=== PATIENT | female | born 1940 | race African-American/Black ===

== ENCOUNTER → 2016-05-29 | Outpatient (CLI) | payer BC | LOC: SP 14:11 | PROVIDERS: ATTEND Physician Assistant | DX: M79.662 Pain in left lower leg (principal) | CPT/HCPCS: 93971 ==

== ENCOUNTER → 2018-11-06 | Outpatient (CLI) | payer MEDICARE, BC ==
--- NOTE | 2018-11-06 13:14 | XCELERA REPORT ---
[address] [place] [facility] [place] [address] Lower Extremity Venous Evaluation Procedure: Color flow and duplex imaging of the veins of the left lower extremity as well as the right Common Femoral vein. Right Sided Venous Evaluation The right common femoral vein is fully compressible. Spontaneous and phasic flow is present in the right common femoral vein. Left Sided Venous Evaluation Normal vessel filling wall to wall, compression and augmentation as well as Colour flow down to the infrageniculate veins. Interpretation Summary No duplex evidence of DVT or obstruction in the left lower extremity nor in the right Common Femoral vein. Name: MORGAN ORTEGA Age: 78 yrs Gender: Female : 1940 Patient Status: Outpatient Patient Location: Study Date: 11/06/2018 12:16 PM Reason For Study: LLE PAIN Ordering Physician: DEE DEE HERNDON Performed By: Alberto Stone : DEE DEE HERNDON > [place]
== END ==
LOC: SP 11:29
PROVIDERS: ATTEND Internal Medicine Hematology & Oncology
DX: M79.605 Pain in left leg (principal); M79.89 Other specified soft tissue disorders
CPT/HCPCS: 93971

== ENCOUNTER → 2019-10-26 | Outpatient (CLI) | payer MEDICARE, BC ==
[2019-10-26 14:30] LABS: ABSOLUTE EOSINOPHILS # (AUTO) 0.2 10^3/uL (0.0-0.6); ABSOLUTE LYMPHOCYTES (AUTO) 0.6 10^3/uL (0.5-4.7); ABSOLUTE MONOCYTES (AUTO) 0.4 10^3/uL (0.1-1.4); ABSOLUTE NEUT (AUTO) 2.7 10^3/uL (1.7-8.2); BASOPHILS % (AUTO) 0.5 % (0-2); EOSINOPHILS % (AUTO) 5.1 % (0-6); HEMATOCRIT 25.5 % (36.0-47.0); HEMOGLOBIN 8.6 g/dL (12.0-15.5); MEAN CORPUSCULAR HEMOGLOBIN 30.8 pg (27.0-33.4); MEAN CORPUSCULAR HGB CONC 33.7 g/dL (32.0-36.0); MEAN CORPUSCULAR VOLUME 91 fl (80-97); MONOCYTES % (AUTO) 9.8 % (3-13); PLATELET COUNT 175 10^3/uL (150-450); RED BLOOD COUNT 2.79 10^6/uL (3.72-5.28); RED CELL DISTRIBUTION WIDTH 13.3 % (11.5-14.0); SEGMENTED NEUTROPHILS % (AUTO) 68.6 % (42-78); TOTAL CELLS COUNTED % (AUTO) 100 %
[2019-10-26 14:59] LABS: ALBUMIN 3.7 g/dL (3.5-5.0); ANION GAP 8 (5-19); BLOOD UREA NITROGEN 81 mg/dL (7-20); CALCIUM 9.5 mg/dL (8.4-10.2); CARBON DIOXIDE 22 mmol/L (22-30); CHLORIDE 111 mmol/L (98-107); GLUCOSE 108 mg/dL (75-110); PHOSPHORUS 4.4 mg/dL (2.5-4.5); POTASSIUM 5.7 mmol/L (3.6-5.0)
[2019-10-26 15:07] LABS: APPEARANCE,URINE SLIGHTLY-CLOUDY; BILIRUBIN,URINE NEGATIVE (NEGATIVE); COLOR,URINE YELLOW; GLUCOSE, URINE NEGATIVE (NEGATIVE); KETONES,URINE NEGATIVE (NEGATIVE); LEUKOCYTE ESTERASE,URINE MODERATE (NEGATIVE); NITRITE,URINE NEGATIVE (NEGATIVE); PROTEIN,URINE NEGATIVE (NEGATIVE); URINE SPECIFIC GRAVITY 1.012; UROBILINOGEN,URINE NEGATIVE mg/dL (<2.0)
[2019-10-27 12:37] LABS: CREATININE URINE 131.8 mg/dL (Not Estab.); MICROALBUMIN URINE 9.1 ug/mL (Not Estab.)
[2019-10-28 16:18] LABS: ANION GAP 13 (5-19); BLOOD UREA NITROGEN 80 mg/dL (7-20); CALCIUM 9.6 mg/dL (8.4-10.2); CARBON DIOXIDE 19 mmol/L (22-30); CHLORIDE 109 mmol/L (98-107); GLUCOSE 110 mg/dL (75-110); POTASSIUM 5.6 mmol/L (3.6-5.0)
== END ==
LOC: OD 13:54
PROVIDERS: ATTEND Internal Medicine Nephrology
DX: N18.3 Chronic kidney disease, stage 3 (moderate) (principal); N39.0 Urinary tract infection, site not specified
CPT/HCPCS: 36415; 80048; 80069; 81001; 82043; 82306; 82570; 83970; 85025; 87086

== ENCOUNTER → 2019-11-05 | Outpatient (CLI) | payer MEDICARE, BC | LOC: OD 13:47 | PROVIDERS: ATTEND Internal Medicine Nephrology | DX: E87.5 Hyperkalemia (principal) | CPT/HCPCS: 36415; 84132 ==

== ENCOUNTER 2019-11-25 17:01 | Emergency (ER) | payer MEDICARE, BC ==
--- NOTE | 2019-11-25 17:16 | ER Document Report ---
ED Medical Screen (RME) - General Chief Complaint: Abnormal Lab Results Stated Complaint: ABNORMAL LABS Time Seen by Provider: 11/25/19 17:09 Primary Care Provider: INEZ DRIVER MD [Primary Care Provider] - Follow up as needed Mode of Arrival: Wheelchair Information source: Patient Notes: 79-year-old female sent to the ED for low calcium level. She states she went to the kidney doctor in which was getting ready to leave they called her and told her she needed to come to the emergency room because her calcium was too low. She states she does have some numbness and tingling in the hands and feet. She is being treated for stage III kidney disease. She is alert oriented respirations regular nonlabored speaking in full sentences. I have greeted and performed a rapid initial assessment of this patient. A comprehensive ED assessment and evaluation of the patient, analysis of test results and completion of medical decision making process will be conducted by an additional ED providers. TRAVEL OUTSIDE OF THE [place] IN LAST 30 DAYS: No - Related Data Allergies/Adverse Reactions: levofloxacin [From Levaquin] Allergy (Verified 12/31/16 15:12) Past Medical History - Past Medical History Cardiac Medical History: Reports: Hx Hypertension Denies: Hx Coronary Artery Disease, Hx Heart Attack Pulmonary Medical History: Reports: Hx Asthma, Hx Pneumonia Denies: Hx Bronchitis, Hx COPD Neurological Medical History: Denies: Hx Cerebrovascular Accident, Hx Seizures Endocrine Medical History: Reports: Hx Diabetes Mellitus Type 2 Musculoskeltal Medical History: Reports Hx Arthritis Psychiatric Medical History: Denies: Hx Depression Past Surgical History: Reports: Hx Cholecystectomy - Immunizations Hx Diphtheria, Pertussis, Tetanus Vaccination: Yes Physical Exam - Vital signs Vitals: Temp Pulse Resp BP Pulse Ox 98.6 F 74 18 120/59 L 100 11/25/19 17:12 11/25/19 17:12 11/25/19 17:12 11/25/19 17:12 11/25/19 17:12 Course - Vital Signs Vital signs: Temp Pulse Resp BP Pulse Ox 98.6 F 74 18 120/59 L 100 11/25/19 17:12 11/25/19 17:12 11/25/19 17:12 11/25/19 17:12 11/25/19 17:12 Doctor's Discharge - Discharge Referrals: INEZ DRIVER MD [Primary Care Provider] - Follow up as needed
[2019-11-25 18:06] LABS: APPEARANCE,URINE CLOUDY; BILIRUBIN,URINE NEGATIVE (NEGATIVE); GLUCOSE, URINE NEGATIVE (NEGATIVE); KETONES,URINE NEGATIVE (NEGATIVE); LEUKOCYTE ESTERASE,URINE LARGE (NEGATIVE); NITRITE,URINE NEGATIVE (NEGATIVE); PROTEIN,URINE NEGATIVE (NEGATIVE); URINE SPECIFIC GRAVITY 1.014; UROBILINOGEN,URINE NEGATIVE mg/dL (<2.0)
[2019-11-25 18:07] LABS: COLOR,URINE YELLOW
[2019-11-25 18:11] LABS: ABSOLUTE LYMPHOCYTES (AUTO) 0.3 10^3/uL (0.5-4.7); ABSOLUTE NEUT (AUTO) 1.9 10^3/uL (1.7-8.2); BASOPHILS % (AUTO) 0.1 % (0-2); EOSINOPHILS % (AUTO) 1.4 % (0-6); HEMOGLOBIN 10.7 g/dL (12.0-15.5); LYMPHOCYTES % (AUTO) 11.7 % (13-45); MEAN CORPUSCULAR HEMOGLOBIN 30.6 pg (27.0-33.4); MEAN CORPUSCULAR HGB CONC 34.5 g/dL (32.0-36.0); MEAN CORPUSCULAR VOLUME 89 fl (80-97); MONOCYTES % (AUTO) 1.5 % (3-13); RED BLOOD COUNT 3.49 10^6/uL (3.72-5.28); RED CELL DISTRIBUTION WIDTH 14.3 % (11.5-14.0); SEGMENTED NEUTROPHILS % (AUTO) 85.3 % (42-78); TOTAL CELLS COUNTED % (AUTO) 100 %; WHITE BLOOD COUNT 2.3 10^3/uL (4.0-10.5)
[2019-11-25 18:16] LABS: ALBUMIN 3.2 g/dL (3.5-5.0); ALKALINE PHOSPHATASE 106 U/L (38-126); ANION GAP 11 (5-19); ASPARTATE AMINO TRANSFERASE 27 U/L (14-36); BILIRUBIN,DIRECT 0.5 mg/dL (0.0-0.4); BILIRUBIN,TOTAL 0.9 mg/dL (0.2-1.3); BLOOD UREA NITROGEN 67 mg/dL (7-20); CARBON DIOXIDE 18 mmol/L (22-30); CHLORIDE 110 mmol/L (98-107); GLUCOSE 83 mg/dL (75-110); PHOSPHORUS 2.9 mg/dL (2.5-4.5); POTASSIUM 5.1 mmol/L (3.6-5.0); TOTAL PROTEIN 6.5 g/dL (6.3-8.2)
[2019-11-25 18:43] LABS: PLATELET COUNT 31 10^3/uL (150-450)
[2019-11-25] MEDS ORDERED: CEFTRIAXONE 1 GM/D5W RTU 1 GM/50 ML RTUPB IV ONE (20:46)
--- NOTE | 2019-11-25 20:48 | ER Document Report ---
Entered by BRISEYDA SALCIDO SCRIBE 11/25/192035 Acting as scribe for:CHERELLE NIX DO ED General - General Chief Complaint: Abnormal Lab Results Stated Complaint: ABNORMAL LABS Time Seen by Provider: 11/25/19 17:09 Primary Care Provider: INEZ DRIVER MD [ACTIVE STAFF] - Follow up as needed Mode of Arrival: Wheelchair Information source: Patient Notes: This 79 year old female patient presents to the emergency department today with low calcium levels. Patient states she was visiting her Water Purification Chemist earlier today and was called on her way home to go to the ED because her calcium level was low. Patient states she has recently been fatigued. Patient reports history of uterine cancer and was told cancer cells have returned, now involving her spine and causing back pain. Patient states she was prescribed 5mg oxycodone/acetaminophen which has helped for her pain. Patient reports a blood transfusion a few days ago and her next infusion chemotherapy is tomorrow. TRAVEL OUTSIDE OF THE [place] IN LAST 30 DAYS: No - Related Data Allergies/Adverse Reactions: levofloxacin [From Levaquin] Allergy (Verified 12/31/16 15:12) Past Medical History - General Information source: Patient - Social History Smoking Status: Never Smoker Cigarette use (# per day): No Chew tobacco use (# tins/day): No Frequency of alcohol use: None Drug Abuse: None Family History: Reviewed & Not Pertinent Patient has homicidal ideation: No - Past Medical History Cardiac Medical History: Reports: Hx Hypertension Pulmonary Medical History: Reports: Hx Asthma, Hx Pneumonia Endocrine Medical History: Reports: Hx Diabetes Mellitus Type 2 Renal/ Medical History: Reports: Hx End Stage Renal Disease Malignancy Medical History: Reports: Other - Uterine Cancer Musculoskeletal Medical History: Reports Hx Arthritis Past Surgical History: Reports: Hx Cholecystectomy - Immunizations Hx Diphtheria, Pertussis, Tetanus Vaccination: Yes Review of Systems - Review of Systems Constitutional: See HPI, Other - Fatigue EENT: No symptoms reported Cardiovascular: No symptoms reported Respiratory: No symptoms reported Gastrointestinal: No symptoms reported Genitourinary: No symptoms reported Female Genitourinary: No symptoms reported Musculoskeletal: See HPI, Back pain Skin: No symptoms reported Hematologic/Lymphatic: See HPI Neurological/Psychological: No symptoms reported -: Yes All other systems reviewed and negative Physical Exam - Vital signs Vitals: Temp Pulse Resp BP Pulse Ox 98.6 F 74 18 120/59 L 100 11/25/19 17:12 11/25/19 17:12 11/25/19 17:12 11/25/19 17:12 11/25/19 17:12 - General Notes: Alert. Elderly female who appears frail and older than stated age. - HEENT Head: Normocephalic, Atraumatic Eyes: Normal Pupils: PERRL - Respiratory Respiratory status: No respiratory distress Chest status: Nontender Breath sounds: Normal Chest palpation: Normal Notes: Port present in the right anterior chest. - Cardiovascular Rhythm: Regular Heart sounds: Normal auscultation Murmur: No - Abdominal Inspection: Normal - Soft Distension: No distension Bowel sounds: Normal Tenderness: Nontender - Extremities General upper extremity: Normal inspection. No: Edema Notes: Pitting edema to bilateral lower extremities. - Neurological Neuro grossly intact: Yes Cognition: Normal Orientation: AAOx4 Mariah Coma Scale Eye Opening: Spontaneous Mariah Coma Scale Verbal: Oriented Mariah Coma Scale Motor: Obeys Commands Mariah Coma Scale Total: 15 - Psychological Associated symptoms: Normal affect, Normal mood - Skin Skin Temperature: Warm Skin Moisture: Dry Skin Color: Normal Course - Re-evaluation Re-evalutation: 11/25/19 23:14 MDM Unfortunate 79 year old female arrives with direction given to come here due to low Calcium. 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 She received PRBCs recently and WBC down a bit and a uti are noted. Additionally Chief Payroll Clerk is up just a bit and she was actually at the osd clerk office today. Her pain is controlled. She has received 2 grams of Ca and she has oncology follow up in the morning. 11/25/19 23:22 Discussed follow up and pt feels improved here. Her and understand importance of followup. SBP 130's. HR 80's 100% sat. No evidence of sepsis alt rich it was considered. We discussed the poor renal function and close follow up - first of week is needed. - Vital Signs Vital signs: Temp Pulse Resp BP Pulse Ox 98.6 F 74 15 112/52 L 98 11/25/19 17:12 11/25/19 17:12 11/25/19 19:30 11/25/19 19:30 11/25/19 19:30 - Laboratory Result Diagrams: 11/25/19 17:30 11/25/19 17:30 Laboratory results interpreted by me: 11/25/19 11/25/19 11/25/19 17:30 17:30 17:30 WBC 2.3 L RBC 3.49 L Hgb 10.7 L Hct 31.0 L RDW 14.3 H Plt Count 31 L Lymph % (Auto) 11.7 L Dundy % (Auto) 1.5 L Absolute Lymphs (auto) 0.3 L Absolute Monos (auto) 0.0 L Seg Neutrophils % 85.3 H Potassium 5.1 H Chloride 110 H Carbon Dioxide 18 L BUN 67 H Creatinine 4.18 H Est GFR ( Amer) 12 L Est GFR (MDRD) Non-Af 10 L Calcium 6.0 L* Ionized Calcium Gurinder Magnesium 2.6 H Direct Bilirubin 0.5 H Albumin 3.2 L Urine Blood SMALL H Ur Leukocyte Esterase LARGE H Urine Ascorbic Acid 40 H 11/25/19 19:50 WBC RBC Hgb Hct RDW Plt Count Lymph % (Auto) Dundy % (Auto) Absolute Lymphs (auto) Absolute Monos (auto) Seg Neutrophils % Potassium Chloride Carbon Dioxide BUN Creatinine Est GFR ( Amer) Est GFR (MDRD) Non-Af Calcium Ionized Calcium Gurinder 0.87 L Magnesium Direct Bilirubin Albumin Urine Blood Ur Leukocyte Esterase Urine Ascorbic Acid Discharge - Discharge Clinical Impression: Hypocalcemia Condition: Fair Disposition: HOME, SELF-CARE Instructions: Kidney Failure ([facility]), Urinary Tract Infection ([facility]), Weakness ([facility]) Additional Instructions: Your calcium was too low here and your kidney function is worse. Discuss this with the kidney specialist (osd clerk) next week. Call in the morning for follow up next week. Take the pain medicine as needed for pain. Keep the follow up with the oncologist in the morning. Return here for fever, weakness, vomiting, decreased urine output or other problems or concerns. Your medicine was sent to [facility] on [address]. Prescriptions: Cephalexin Monohydrate [Keflex 500 mg Capsule] 500 mg PO BID 5 Days #20 capsule Cephalexin Monohydrate [Keflex 500 mg Capsule] 250 mg PO BID 5 Days #20 capsule Oxycodone HCl/Acetaminophen [Percocet 5-325 mg Tablet] 1 - 2 tab PO Q4H PRN #15 tablet PRN Reason: Oxycodone HCl/Acetaminophen [Percocet 5-325 mg Tablet] 1 - 2 tab PO ASDIR PRN #15 tablet PRN Reason: Referrals: INEZ DRIVER MD [ACTIVE STAFF] - Follow up as needed I personally performed the services described in the documentation, reviewed and edited the documentation which was dictated to the scribe in my presence, and it accurately records my words and actions.
[2019-11-25] MEDS: CALCIUM GLUC IN NACL, ISO-OSM 1 GM/50 ML RTUPB IV SCH ×2 (21:09→22:44)
[2019-11-26 00:33] VITALS: BP 139/53
== END 2019-11-26 00:33 | disposition home or self-care (01) ==
LOC: ER 17:01
DX: E83.51 Hypocalcemia (principal); N39.0 Urinary tract infection, site not specified; C55 Malignant neoplasm of uterus, part unspecified; C79.51 Secondary malignant neoplasm of bone; M54.9 Dorsalgia, unspecified; R53.83 Other fatigue; R60.0 Localized edema; I10 Essential (primary) hypertension; E11.9 Type 2 diabetes mellitus without complications; J45.909 Unspecified asthma, uncomplicated; Z79.899 Other long term (current) drug therapy; Z88.1 Allergy status to other antibiotic agents
CPT/HCPCS: 36591; 96376; 99284; 96375; 96365; 36415; 87040; 83735; 84100; 85025; 87070; 87077; 81001; 82330; 87150 ×26; J0696; J1642; J0610; 87186

== ENCOUNTER → 2019-11-25 | Outpatient (CLI) | payer MEDICARE, BC ==
[2019-11-25 15:55] LABS: ANION GAP 13 (5-19); BLOOD UREA NITROGEN 71 mg/dL (7-20); CARBON DIOXIDE 15 mmol/L (22-30); CHLORIDE 111 mmol/L (98-107); GLUCOSE 92 mg/dL (75-110); POTASSIUM 5.2 mmol/L (3.6-5.0)
[2019-11-25 16:05] LABS: CALCIUM 6.2 mg/dL (8.4-10.2)
== END ==
LOC: OD 14:54
PROVIDERS: ATTEND Internal Medicine Nephrology
DX: N17.9 Acute kidney failure, unspecified (principal)
CPT/HCPCS: 36415; 80048

== ENCOUNTER 2019-11-26 14:25 | Inpatient (IN) | payer MEDICARE, BC ==
--- NOTE | 2019-11-26 15:14 | ER Document Report ---
ED Medical Screen (RME) - General Chief Complaint: Abnormal Lab Results Stated Complaint: ABNORMAL LABS Time Seen by Provider: 11/26/19 15:05 Primary Care Provider: SHAILESH JOHNSON PA-C [Primary Care Provider] - Follow up as needed Mode of Arrival: Wheelchair Information source: Patient Notes: Patient was sent here from Dr. Turk's office for weakness, fatigue, hypocalc emia, and hypotension. Dr. Hutton felt that patient would likely need admission and IV fluids administration in addition to calcium replacement. Patient was also found to be thrombocytopenic. Patient received 2 units of packed red blood cells 3 days ago. Patient is currently undergoing chemotherapy for endometrial cancer. Patient also has a history of hypertension, diabetes, Crohn's disease and CKD. Patient was evaluated in the ED yesterday and was given IV calcium. I have greeted and performed a rapid initial assessment of this patient. A comprehensive ED assessment and evaluation of the patient, analysis of test results and completion of the medical decision making process will be conducted by additional ED providers. TRAVEL OUTSIDE OF THE [place] IN LAST 30 DAYS: No - Related Data Allergies/Adverse Reactions: levofloxacin [From Levaquin] Allergy (Verified 12/31/16 15:12) Past Medical History - Past Medical History Cardiac Medical History: Reports: Hx Hypertension Denies: Hx Coronary Artery Disease, Hx Heart Attack Pulmonary Medical History: Reports: Hx Asthma, Hx Pneumonia Denies: Hx Bronchitis, Hx COPD Neurological Medical History: Denies: Hx Cerebrovascular Accident, Hx Seizures Endocrine Medical History: Reports: Hx Diabetes Mellitus Type 2 Renal/ Medical History: Reports: Hx End Stage Renal Disease Musculoskeltal Medical History: Reports Hx Arthritis Psychiatric Medical History: Denies: Hx Depression Past Surgical History: Reports: Hx Cholecystectomy - Immunizations Hx Diphtheria, Pertussis, Tetanus Vaccination: Yes Physical Exam - Vital signs Vitals: Temp Pulse Resp BP Pulse Ox 98.1 F 95 16 126/62 H 100 11/26/19 14:33 11/26/19 14:33 11/26/19 14:33 11/26/19 14:33 11/26/19 14:33 - General General appearance: Alert In distress: Mild Notes: Pale, generalized weakness, respirations unlabored Course - Vital Signs Vital signs: Temp Pulse Resp BP Pulse Ox 98.1 F 95 16 126/62 H 100 11/26/19 14:33 11/26/19 14:33 11/26/19 14:33 11/26/19 14:33 11/26/19 14:33 Doctor's Discharge - Discharge Referrals: SHAILESH JOHNSON PA-C [Primary Care Provider] - Follow up as needed
[2019-11-26 17:37] LABS: ABSOLUTE LYMPHOCYTES (AUTO) 0.5 10^3/uL (0.5-4.7); ABSOLUTE MONOCYTES (AUTO) 0.1 10^3/uL (0.1-1.4); ABSOLUTE NEUT (AUTO) 2.2 10^3/uL (1.7-8.2); BASOPHILS % (AUTO) 0.2 % (0-2); EOSINOPHILS % (AUTO) 0.8 % (0-6); HEMATOCRIT 30.6 % (36.0-47.0); HEMOGLOBIN 10.6 g/dL (12.0-15.5); LYMPHOCYTES % (AUTO) 18.3 % (13-45); MEAN CORPUSCULAR HEMOGLOBIN 30.6 pg (27.0-33.4); MEAN CORPUSCULAR HGB CONC 34.4 g/dL (32.0-36.0); MEAN CORPUSCULAR VOLUME 89 fl (80-97); MONOCYTES % (AUTO) 2.6 % (3-13); RED BLOOD COUNT 3.45 10^6/uL (3.72-5.28); RED CELL DISTRIBUTION WIDTH 14.6 % (11.5-14.0); SEGMENTED NEUTROPHILS % (AUTO) 78.1 % (42-78); TOTAL CELLS COUNTED % (AUTO) 100 %; WHITE BLOOD COUNT 2.8 10^3/uL (4.0-10.5)
[2019-11-26 17:45] LABS: APPEARANCE,URINE CLOUDY; BILIRUBIN,URINE NEGATIVE (NEGATIVE); GLUCOSE, URINE NEGATIVE (NEGATIVE); KETONES,URINE TRACE mg/dL (NEGATIVE); LEUKOCYTE ESTERASE,URINE MODERATE (NEGATIVE); NITRITE,URINE NEGATIVE (NEGATIVE); PROTEIN,URINE NEGATIVE (NEGATIVE); URINE SPECIFIC GRAVITY 1.017; UROBILINOGEN,URINE NEGATIVE mg/dL (<2.0)
[2019-11-26 17:46] LABS: COLOR,URINE DARK YELLOW
--- NOTE | 2019-11-26 17:54 | EKG REPORT ---
SEVERITY:- ABNORMAL ECG - ATRIAL FLUTTER, A-RATE 283 LEFT VENTRICULAR HYPERTROPHY : Confirmed by: Lior Davis MD 26-Nov-2019 17:53:09
[2019-11-26 17:59] LABS: PLATELET COUNT 33 10^3/uL (150-450)
[2019-11-26 18:00] LABS: ALBUMIN 3.2 g/dL (3.5-5.0); ALKALINE PHOSPHATASE 103 U/L (38-126); ANION GAP 14 (5-19); ASPARTATE AMINO TRANSFERASE 27 U/L (14-36); BILIRUBIN,DIRECT 0.4 mg/dL (0.0-0.4); BILIRUBIN,TOTAL 0.7 mg/dL (0.2-1.3); BLOOD UREA NITROGEN 69 mg/dL (7-20); CARBON DIOXIDE 15 mmol/L (22-30); CHLORIDE 111 mmol/L (98-107); GLUCOSE 76 mg/dL (75-110); POTASSIUM 5.1 mmol/L (3.6-5.0); TOTAL PROTEIN 6.9 g/dL (6.3-8.2)
[2019-11-26 18:08] LABS: CALCIUM 6.4 mg/dL (8.4-10.2)
[2019-11-26] MEDS ORDERED: NORMAL SALINE 250 ML IV ONE ×2 (18:18→21:11)
[2019-11-26] MEDS ORDERED: MEROPENEM 1 GM VIAL IV ONE (21:05)
[2019-11-26] MEDS ORDERED: CALCIUM GLUCONATE 1000 MG/10 ML INJ IV ONE (21:06)
--- NOTE | 2019-11-26 22:46 | ER Document Report ---
ED General - General Chief Complaint: Abnormal Lab Results Stated Complaint: ABNORMAL LABS Time Seen by Provider: 11/26/19 15:05 Primary Care Provider: SHAILESH JOHNSON PA-C [Primary Care Provider] - Follow up as needed Mode of Arrival: Wheelchair Information source: Patient, Relative Notes: Patient is a 79-year-old female presenting to the emergency department with a c hief complaint of abnormal lab findings. Patient was seen by her provider and was sent into the emergency department for positive blood cultures as well as a continued low calcium. Patient was seen at this facility last evening and was given calcium and started on antibiotic coverage for urinary tract infection however today the patient was called by 1 of her providers and informed that she had gram-negative rods that grew out in a blood culture. At time of presentation patient is alert and oriented in no acute distress complaining of just generalized weakness but no pain no shortness of breath. Patient denies nausea vomiting diarrhea cough or cold symptoms. Patient has been diagnosed w ith uterine cancer with what sounds like mets to the spine. Patient states her last chemo was about a week ago she was told not to take her most recent chemotherapy because of worsening renal function. TRAVEL OUTSIDE OF THE [place] IN LAST 30 DAYS: No - HPI Onset: Last week Onset/Duration: Gradual, Worse Quality of pain: No pain Severity: None Pain Level: Denies Associated symptoms: Weakness Exacerbated by: Denies Relieved by: Denies Similar symptoms previously: Yes Recently seen / treated by doctor: Yes - Related Data Allergies/Adverse Reactions: levofloxacin [From Levaquin] Allergy (Verified 12/31/16 15:12) Past Medical History - General Information source: Patient, Relative, [facility] TO [facility] Records - Social History Smoking Status: Never Smoker Chew tobacco use (# tins/day): No Frequency of alcohol use: None Drug Abuse: None Lives with: Spouse/Significant other Family History: CAD, Malignancy - Brain tumor Patient has suicidal ideation: No Patient has homicidal ideation: No - Past Medical History Cardiac Medical History: Reports: Hx Hypercholesterolemia - Hypercholesterolemia, Hx Hypertension Denies: Hx Atrial Fibrillation, Hx Coronary Artery Disease, Hx DVT, Hx Heart Attack, Hx Pulmonary Embolism Pulmonary Medical History: Reports: Hx Asthma, Hx Pneumonia Denies: Hx Bronchitis, Hx COPD EENT Medical History: Denies: Ears - Hearing aids Neurological Medical History: Denies: Hx Cerebrovascular Accident, Hx Seizures Endocrine Medical History: Reports: Hx Diabetes Mellitus Type 2. Denies: Hx Diabetes Mellitus Type 1, Hx Hyperthyroidism, Hx Hypothyroidism Renal/ Medical History: Reports: Hx End Stage Renal Disease Malignancy Medical History: Reports: Other - Uterine cancer: Endometrial carcinoma GI Medical History: Denies: Hx Cirrhosis, Hx Hepatitis Musculoskeletal Medical History: Reports Hx Arthritis, Denies Hx Gout Skin Medical History: Denies Hx Eczema, Denies Hx Psoriasis Psychiatric Medical History: Denies: Hx Depression Traumatic Medical History: Reports: None Infectious Medical History: Reports: None. Denies: Hx Hepatitis Past Surgical History: Reports: Hx Cholecystectomy, Hx Hysterectomy, Hx Vascular Surgery - Port-A-Cath placement, Other - Colonoscopy - Immunizations Hx Diphtheria, Pertussis, Tetanus Vaccination: Yes Review of Systems - Review of Systems Notes: REVIEW OF SYSTEMS: CONSTITUTIONAL : Per HPI EENT: Denies eye, ear, throat, or mouth pain or symptoms. Denies nasal or sinus congestion. CARDIOVASCULAR: Denies chest pain. RESPIRATORY: Denies cough, cold, or chest congestion. Denies shortness of breath, difficulty breathing, or wheezing. GASTROINTESTINAL: Denies abdominal pain. Denies nausea, vomiting, or diarrhea. Denies constipation. GENITOURINARY: Denies difficulty urinating, painful urination, burning, frequency, or blood in urine. MUSCULOSKELETAL: Denies neck or back pain or joint pain or swelling. SKIN: Denies rash or skin lesions. HEMATOLOGIC : Denies easy bruising or bleeding. NEUROLOGICAL: Denies altered mental status or loss of consciousness. Denies headache. Denies weakness or paralysis or loss of use of either side. Denies problems with gait or speech. Denies sensory or motor loss. PSYCHIATRIC: Denies suicidal or homicidal ideations 10 Systems are negative unless otherwise specified above Physical Exam - Vital signs Vitals: Temp Pulse Resp BP Pulse Ox 98.1 F 95 16 126/62 H 100 11/26/19 14:33 11/26/19 14:33 11/26/19 14:33 11/26/19 14:33 11/26/19 14:33 - Notes Notes: PHYSICAL EXAMINATION: GENERAL: Well-appearing, well-nourished and in no acute distress. HEAD: Atraumatic, normocephalic. EYES: Pupils equal round and reactive to light, extraocular movements intact, sclera anicteric, conjunctiva are normal. ENT: nares patent, oropharynx clear without exudates. Moist mucous membranes. NECK: Normal range of motion, supple without lymphadenopathy, no appreciable JVD LUNGS: Lungs clear to auscultation bilaterally and equal. No wheezes rales or rhonchi. HEART: Irregular tachycardic rate and rhythm without murmurs ABDOMEN: Soft, nontender, normal bowel sounds. No guarding, no rebound. No masses appreciated. EXTREMITIES: Active full range of motion, no pitting or edema. No cyanosis. 2+ pulses x4 NEUROLOGICAL: No focal neurological deficits. Moves all extremities spontaneously and on command. SKIN: Warm, Dry, and intact. Normal turgor, no rashes or lesions noted. Course - Re-evaluation Re-evalutation: 11/26/19 22:49 On presentation to the emergency department EKG chest x-ray and laboratory studies were ordered patient was found to have new onset of atrial flutter initial EKG was obtained at 1637 demonstrating a flutter ventricular rate of 111 bpm there is some borderline LVH this is new compared to prior EKG of December 2016 a repeat EKG was obtained at 1823 hrs. once again showing atrial flutter with a rate of 107 bpm atrial rate of approximately 277. Patient has been hypotensive. Patient furthermore had laboratory studies obtained and evaluated demonstrating a low calcium of 6.4 magnesium of 2.6 white count of 2.8 platelets of 33 BUN of 69 creatinine of 4.27. Patient asked that we contact her main oncology which is in [place] I spoke to the oncologist car salesperson and he feels that the patient can be managed at our facility which is agreeable with the patient and her . Patient was started on antibiotics meropenem given calcium IV and 2 boluses of normal saline 250 cc each. Patient's heart rate has remained in the 90s and low 100s and after fluids and calcium blood pressure currently is 124/91. Patient is never been in acute distress has not had a fever and has had no pain. Patient is consulted to the hospitalist for admission and accepted. - Vital Signs Vital signs: Temp Pulse Resp BP Pulse Ox 98.8 F 95 14 118/44 L 100 11/26/19 22:36 11/26/19 14:33 11/26/19 22:21 11/26/19 22:21 11/26/19 22:21 - Laboratory Result Diagrams: 11/26/19 16:53 11/26/19 16:53 Laboratory results interpreted by me: 11/26/19 11/26/19 11/26/19 16:53 16:53 16:53 WBC 2.8 L RBC 3.45 L Hgb 10.6 L Hct 30.6 L RDW 14.6 H Plt Count 33 L Isabella % (Auto) 2.6 L Seg Neutrophils % 78.1 H Potassium 5.1 H Chloride 111 H Carbon Dioxide 15 L BUN 69 H Creatinine 4.27 H Est GFR ( Amer) 12 L Est GFR (MDRD) Non-Af 10 L Calcium 6.4 L* Ionized Calcium Gurinder Magnesium 2.6 H Albumin 3.2 L Urine Ketones TRACE H Ur Leukocyte Esterase MODERATE H Urine Ascorbic Acid 40 H 11/26/19 18:51 WBC RBC Hgb Hct RDW Plt Count Isabella % (Auto) Seg Neutrophils % Potassium Chloride Carbon Dioxide BUN Creatinine Est GFR ( Amer) Est GFR (MDRD) Non-Af Calcium Ionized Calcium Gurinder 0.90 L Magnesium Albumin Urine Ketones Ur Leukocyte Esterase Urine Ascorbic Acid - Diagnostic Test Radiology reviewed: Pending - EKG Interpretation by Me Rate: Tachycardia Rhythm: A.Flutter When compared to previous EKG there are: Changes noted Critical Care Note - Critical Care Note Total time excluding time spent on procedures (mins): 40 Comments: Please allow 40 minutes of critical care time spent obtaining history from patient or surrogate, discussions with consultants, development of treatment plan with patient or surrogate, evaluation of patient's response to treatment, examination of patient. This also includes ordering and reviewing laboratory, EKG and / or radiologic studies, performing and reassessing treatments and interventions as well as reviewing previous visits and old charts. This is exclusive of separately billable procedures. Discharge - Discharge Clinical Impression: Hypocalcemia, Pancytopenia Atrial flutter Qualifiers: Atrial flutter type: unspecified Qualified Code(s): I48.92 - Unspecified atrial flutter Renal failure Qualifiers: Renal failure chronicity: unspecified chronicity Qualified Code(s): N19 - Unspecified kidney failure Condition: Fair Disposition: ADMITTED INPATIENT Admitting Provider: Tammi (Hospitalist) Unit Admitted: IMCU Referrals: SHAILESH JOHNSON PA-C [Primary Care Provider] - Follow up as needed
--- NOTE | 2019-11-26 22:46 | EKG REPORT ---
SEVERITY:- ABNORMAL ECG - ATRIAL FLUTTER, A-RATE 277 LEFT VENTRICULAR HYPERTROPHY : Confirmed by: Lior Davis MD 26-Nov-2019 22:45:24
[2019-11-26 22:57] LABS: FREE T3 1.96 pg/mL (2.77-5.27)
[2019-11-26] MEDS ORDERED: MELATONIN 5 MG TABLET PO PRN (23:10)
[2019-11-26] MEDS ORDERED: MAGNESIUM HYDROXIDE SUSP 30 ML UDCUP PO PRN (23:10)
[2019-11-26] MEDS ORDERED: GUAIFENESIN SYRP 200 MG/10 ML UDC PO PRN (23:10)
[2019-11-26] MEDS ORDERED: MORPHINE SULFATE 10 MG/ML INJ IV PRN ×4 (23:10→23:18)
[2019-11-26] MEDS ORDERED: DEXTROSE 40% GEL 15 GM TUBE PO PRN ×2 (23:10)
[2019-11-26] MEDS ORDERED: DEXTROSE 50%-WATER 25 GM/50 ML DISP.SYRIN IV PRN ×2 (23:10)
[2019-11-26] MEDS ORDERED: LORAZEPAM INJ 2 MG/1 ML VIAL IV PRN (23:10)
[2019-11-26] MEDS ORDERED: GLUCAGON,HUMAN RECOMB 1 MG INJ IM PRN (23:10)
[2019-11-26] MEDS ORDERED: MAG HYDROX/AL HYDROX/SIMETH SUSP 30 ML UDCUP PO PRN (23:10)
[2019-11-26 23:11] LABS: THYROID STIMULATING HORMONE 2.71 uIU/mL (0.47-4.68)
[2019-11-26] MEDS ORDERED: DIGOXIN INJ 0.5 MG/2 ML AMPULE IV ONE (23:30)
[2019-11-26] MEDS ORDERED: LEVOTHYROXINE SODIUM INJ/PF 0.1 MG SDV IV ONE (23:45)
[2019-11-27 00:25] LABS: CREATINE KINASE MB 1.71 ng/mL (<4.55); TROPONIN I 0.023 ng/mL
[2019-11-27] MEDS ORDERED: LEVOTHYROXINE SODIUM INJ/PF 0.1 MG SDV ONE (01:10)
[2019-11-27] MEDS: PANTOPRAZOLE SODIUM 40 MG TABLET.DR PO SCH (05:29)
[2019-11-27 06:11] LABS: VENOUS BLOOD BASE EXCESS -12.6 mmol/L; VENOUS BLOOD HCO3 14.1 mmol/L (20-32); VENOUS BLOOD PCO2 35.1 mmHg (35-63); VENOUS BLOOD PH 7.22 (7.30-7.42)
[2019-11-27 06:14] LABS: HEMATOCRIT 28.9 % (36.0-47.0); HEMOGLOBIN 9.7 g/dL (12.0-15.5); MEAN CORPUSCULAR HEMOGLOBIN 30.3 pg (27.0-33.4); MEAN CORPUSCULAR HGB CONC 33.6 g/dL (32.0-36.0); MEAN CORPUSCULAR VOLUME 90 fl (80-97); RED BLOOD COUNT 3.21 10^6/uL (3.72-5.28); RED CELL DISTRIBUTION WIDTH 14.8 % (11.5-14.0); WHITE BLOOD COUNT 3.1 10^3/uL (4.0-10.5)
[2019-11-27 06:29] LABS: ANION GAP 13 (5-19); BLOOD UREA NITROGEN 67 mg/dL (7-20); CARBON DIOXIDE 14 mmol/L (22-30); CHLORIDE 114 mmol/L (98-107); CREATINE KINASE 481 U/L (30-135); POTASSIUM 5.2 mmol/L (3.6-5.0)
--- NOTE | 2019-11-27 06:38 | PDOC H&P ---
History of Present Illness Admission Date/PCP: 11/26/2019 21:18 SHAILESH JOHNSON PA-C Patient complains of: Generalized weakness History of Present Illness: MORGAN ORTEGA is a 79 year old female who presents the emergency room from Dr. Hutton's office for evaluation of generalized weakness present for the last week. Patient admits progressively worsening generalized weakness accompanied by fa tigue and associated with hypocalcemia and hypotension noted in Dr. Hutton's office. She was treated as an outpatient with packed red blood cells x2 units earlier this week without substantial improvement. She has been undergoing chemotherapy for endometrial cancer in [facility]. She was seen in the emergency room yesterday and was given IV calcium for hypocalcemia. She was noted to have positive blood cultures from her visit yesterday with gram- negative rods and gram positive cocci (staph species not MSRA). She denies other associated or accompanying signs and symptoms. She has not identified any additional aggravating or ameliorating factors for her weakness. She denies prior similar episodes. In the emergency room she was noted to have new onset atrial flutter, chronic renal failure, mild hyperkalemia, thrombocytopenia, anemia, leukopenia, persistent hypocalcemia, hypermagnesemia and pyuria. Her atrial flutter was well controlled initially but showed signs of increasing in rate and this was associated with a drop in her blood pressure to a systolic of 80. She was treated with an IV fluid bolus and calcium gluconate at my direction. She was started on meropenem 1 g IV in the ER also at my direction. Past Medical History Cardiac Medical History: Reports: Hyperlipidema - Hypercholesterolemia, Hypertension Denies: Atrial Fibrillation, Coronary Artery Disease, DVT, Myocardial Infarction, Pulmonary Embolism Pulmonary Medical History: Reports: Asthma, Pneumonia Denies: Bronchitis, Chronic Obstructive Pulmonary Disease (COPD) EENT Medical History: Denies: Cataracts, Ears - Hearing aids Neurological Medical History: Denies: Hemorrhagic CVA, Ischemic CVA, Seizures Endocrine Medical History: Reports: Diabetes Mellitus Type 2 Denies: Diabetes Mellitus Type 1, Hyperthyroidism, Hypothyroidism Renal/ Medical History: Reports: Chronic Kidney Disease Denies: Nephrolithiasis Malignancy Medical History: Reports: Other - Uterine cancer: Endometrial carcinoma GI Medical History: Denies: Cirrhosis, Hepatitis, Peptic Ulcer Disease Musculoskeltal Medical History: Reports: Arthritis Denies: Gout Skin Medical History: Denies: Eczema, Psoriasis Psychiatric Medical History: Denies: Alcohol Dependency, Depression, Substance Abuse, Tobacco Dependency Traumatic Medical History: Reports: None Hematology: Reports: Anemia Denies: Bleeding Tendencies Infectious Medical History: Reports: None Past Surgical History Past Surgical History: Reports: Cholecystectomy, Hysterectomy, Vascular Surgery - Port-A-Cath placement, Other - Colonoscopy Social History Information Source: Patient Lives with: Spouse/Significant other Smoking Status: Never Smoker Electronic Cigarette use?: No Frequency of Alcohol Use: None Hx Recreational Drug Use: No Drugs: None Hx Prescription Drug Abuse: No - Advance Directive Resuscitation Status: Full Code Surrogate healthcare decision maker:: Sven Ortega Family History Family History: CAD, Malignancy - Brain tumor Parental Family History Reviewed: Yes Children Family History Reviewed: No Sibling(s) Family History Reviewed.: No Medication/Allergy Home Medications: Acetaminophen [Tylenol Extra Strength 500 mg Tablet] 1 cap PO ASDIR PRN 12/31/16 Aspirin [Aspirin 81 mg Chewable Tablet] 81 mg PO DAILY 12/31/16 Atorvastatin Calcium 1 tab PO DAILY 12/31/16 Cetirizine HCl [Zyrtec] 1 tab PO DAILY 12/31/16 Dulaglutide [Trulicity] 1.5 mg INJ ASDIR 12/31/16 Ferrous Sulfate [Iron] 1 tab PO DAILY 12/31/16 Fluticasone Propionate [Flovent Diskus] 1 inh NASL DAILY 12/31/16 Glimepiride 1 mg PO DAILY 12/31/16 Lisinopril 1 tab PO DAILY 12/31/16 Metoprolol Succinate [Toprol Xl] 1 tab PO DAILY 12/31/16 [place]-3 Fatty Acids/Fish Oil [Fish Oil 300 mg Softgel] 1 cap PO DAILY 12/31/16 Ondansetron HCl [Zofran 8 mg Tablet] 1 tab PO DAILY PRN 12/31/16 Oxycodone HCl/Acetaminophen [Percocet 5-325 mg Tablet] 1 tab PO ASDIR PRN #8 tablet 12/31/16 Ranitidine HCl 1 tab PO DAILY 12/31/16 Sulfadiazine 1 tab PO TID 12/31/16 Triamterene/Hydrochlorothiazid [Triamterene-Hctz 37.5-25 mg Cp] 1 tab PO DAILY 12/31/16 Cephalexin Monohydrate [Keflex 500 mg Capsule] 250 mg PO BID 5 Days #20 capsule 11/25/19 Cephalexin Monohydrate [Keflex 500 mg Capsule] 500 mg PO BID 5 Days #20 capsule 11/25/19 Oxycodone HCl/Acetaminophen [Percocet 5-325 mg Tablet] 1 - 2 tab PO ASDIR PRN #15 tablet 11/25/19 Oxycodone HCl/Acetaminophen [Percocet 5-325 mg Tablet] 1 - 2 tab PO Q4H PRN #15 tablet 11/25/19 Allergies/Adverse Reactions: levofloxacin [From Levaquin] Allergy (Verified 12/31/16 15:12) Review of Systems Constitutional: PRESENT: as per HPI, fatigue, weakness. ABSENT: chills, fever(s) Eyes: ABSENT: visual disturbances, other - Eye pain Ears: ABSENT: hearing changes, other - Ear pain Nose, Mouth, and Throat: ABSENT: headache(s), sore throat Cardiovascular: PRESENT: as per HPI, other - Hypotension. ABSENT: chest pain, palpitations Respiratory: ABSENT: cough, dyspnea Gastrointestinal: ABSENT: abdominal pain, constipation, diarrhea, nausea, vomiting Genitourinary: ABSENT: dysuria, hematuria Musculoskeletal: PRESENT: as per HPI, muscle weakness - Generalized. ABSENT: joint swelling Integumentary: ABSENT: pruritus, rash Neurological: ABSENT: confusion, convulsions, focal weakness, memory loss, syncope Psychiatric: ABSENT: anxiety, depression Endocrine: ABSENT: cold intolerance, heat intolerance Hematologic/Lymphatic: PRESENT: easy bruising - Since chemotherapy. ABSENT: easy bleeding Allergic/Immunologic: ABSENT: seasonal rhinorrhea Physical Exam Vital Signs: Temp Pulse Resp BP Pulse Ox 98.1 F 95 23 H 109/71 100 11/26/19 17:55 11/26/19 14:33 11/26/19 17:01 11/26/19 17:00 11/26/19 17:01 Intake & Output 11/24/19 11/25/19 11/26/19 23:59 23:59 23:59 Intake Total 250 Balance 250 Weight 73.482 kg General appearance: PRESENT: no acute distress, cooperative, other - Appears chronically ill Head exam: PRESENT: atraumatic, normocephalic Eye exam: PRESENT: conjunctiva pink. ABSENT: conjunctival injection, scleral icterus Ear exam: PRESENT: normal external ear exam. ABSENT: bleeding, drainage Mouth exam: PRESENT: dry mucosa, neck supple Neck exam: ABSENT: thyromegaly, tracheal deviation Respiratory exam: PRESENT: clear to auscultation paloma, symmetrical, unlabored Cardiovascular exam: PRESENT: irregular rhythm - Irregularly irregular rate and rhythm, tachycardia. ABSENT: clicks, gallop, rubs Pulses: PRESENT: normal radial pulses, +1 pedal pulses bilateral Vascular exam: PRESENT: normal capillary refill. ABSENT: pallor GI/Abdominal exam: PRESENT: normal bowel sounds, soft. ABSENT: tenderness Rectal exam: PRESENT: deferred Extremities exam: ABSENT: joint swelling, pedal edema Musculoskeletal exam: ABSENT: deformity, dislocation Neurological exam: PRESENT: alert, oriented to person, oriented to place, oriented to time, oriented to situation, CN II-XII grossly intact. ABSENT: motor sensory deficit Psychiatric exam: PRESENT: appropriate affect, normal mood Skin exam: PRESENT: dry, intact, warm. ABSENT: jaundice, rash, urticaria Results Laboratory Results: 11/26/19 16:53 11/26/19 11/26/19 11/26/19 16:53 16:53 16:53 WBC 2.8 L RBC 3.45 L Hgb 10.6 L Hct 30.6 L MCV 89 MCH 30.6 MCHC 34.4 RDW 14.6 H Plt Count 33 L Seg Neutrophils % 78.1 H Sodium 139.9 Potassium 5.1 H Chloride 111 H Carbon Dioxide 15 L Anion Gap 14 BUN 69 H Creatinine 4.27 H Est GFR ( Amer) 12 L Glucose 76 Calcium 6.4 L* Ionized Calcium Gurinder Magnesium 2.6 H Total Bilirubin 0.7 AST 27 Alkaline Phosphatase 103 Total Protein 6.9 Albumin 3.2 L Urine Color DARK YELLOW Urine Appearance CLOUDY Urine pH 5.0 Ur Specific [place] 1.017 Urine Protein NEGATIVE Urine Glucose (UA) NEGATIVE Urine Ketones TRACE H Urine Blood NEGATIVE Urine Nitrite NEGATIVE Ur Leukocyte Esterase MODERATE H Urine WBC (Auto) 30 Urine RBC (Auto) 6 11/26/19 18:51 WBC RBC Hgb Hct MCV MCH MCHC RDW Plt Count Seg Neutrophils % Sodium Potassium Chloride Carbon Dioxide Anion Gap BUN Creatinine Est GFR ( Amer) Glucose Calcium Ionized Calcium Gurinder 0.90 L Magnesium Total Bilirubin AST Alkaline Phosphatase Total Protein Albumin Urine Color Urine Appearance Urine pH Ur Specific [place] Urine Protein Urine Glucose (UA) Urine Ketones Urine Blood Urine Nitrite Ur Leukocyte Esterase Urine WBC (Auto) Urine RBC (Auto) Assessment and Plan - Diagnosis (1) Severe sepsis with septic shock Is this a current diagnosis for this admission?: Yes (2) Pyuria Is this a current diagnosis for this admission?: Yes (3) Positive blood cultures Is this a current diagnosis for this admission?: Yes (4) Atrial flutter Qualifiers: Atrial flutter type: unspecified Qualified Code(s): I48.92 - Unspecified atrial flutter Is this a current diagnosis for this admission?: Yes (5) Renal failure Qualifiers: Renal failure chronicity: unspecified chronicity Qualified Code(s): N19 - Unspecified kidney failure Is this a current diagnosis for this admission?: Yes (6) Hypocalcemia Is this a current diagnosis for this admission?: Yes (7) Hyperkalemia Is this a current diagnosis for this admission?: Yes (8) Hypermagnesemia Is this a current diagnosis for this admission?: Yes (9) Leukopenia Qualifiers: Leukopenia type: unspecified Qualified Code(s): D72.819 - Decreased white blood cell count, unspecified Is this a current diagnosis for this admission?: Yes (10) Normochromic normocytic anemia Is this a current diagnosis for this admission?: Yes (11) Thrombocytopenia Is this a current diagnosis for this admission?: Yes - Plan Summary Summary: Patient will be admitted to [facility] where she will receive routine supportive and symptomatic cares. Patient will be treated with IV fluids utilizing lactated Ringer solution at 167 mL/h initially. She will receive meropenem 1 g initially followed by 500 mg IV every 12 hours (renally adjusted dose). Due to her thrombocytopenia no anticoagulation will be employed at this time. She will receive digoxin 0.25 mg IV x1 dose in the emergency room with further dosing based on her response and serial digoxin levels. A cardiology consultation with Dr. Salazar will be obtained. A nephrology consultation will be obtained with nephrology services are once again available. An oncology consultation will be obtained with Dr. Del Cid. She will receive a cardiac and diabetic re stricted diet. Before meals and at bedtime Accu-Cheks will be obtained with sliding scale insulin for hyperglycemia and a hypoglycemic protocol in place. CBCs, metabolic profiles and additional laboratory and/or radiographic evaluations will be obtained as appropriate. She will receive Ativan 1 mg IV every 4 hours as needed for anxiety or restlessness. She will receive morphine sulfate 2 to 4 mg IV every 2 hours as needed for pain. - Time Time Spent with patient: Less than 15 minutes Medications reviewed and adjusted accordingly: Yes Anticipated Discharge Disposition: Home with Home Health Anticipated Discharge Timeframe: Undetermined - Inpatient Certification Based on my medical assessment, after consideration of the patient's comorbidities, presenting symptoms, or acuity I expect that the services needed warrant INPATIENT care.: Yes I certify that my determination is in accordance with my understanding of Medicare's requirements for reasonable and necessary INPATIENT services [42 CFR 412.3e].: Yes Medical Necessity: Significant Comorbidiites Make Outpatient Treatment Too [place], Need Close Monitoring Due to Risk of Patient Decompensation, Need For IV Fluids, Need For Continuous Telemetry Monitoring, Need for IV Antibiotics, Risk of Complication if Not Cared For in Hospital
--- NOTE | 2019-11-27 06:40 | RADIOLOGY REPORT (SQ) ---
AP Portable chest: 11/27/2019 5:38 AM CDT History: 79-year old patient with dyspnea. Comparison: None available Findings: The cardiomediastinal silhouette is normal in size. No pneumothorax is seen. No acute airspace opacities are seen. No discrete pleural effusion is apparent. A right subclavian [id number] catheter tip projects near the mid SVC. There is elevation of the right hemidiaphragm. There are surgical clips over the right upper abdomen. Impression: No acute airspace opacities are seen.
[2019-11-27 06:41] LABS: CREATINE KINASE MB 4.04 ng/mL (<4.55); TROPONIN I 0.029 ng/mL
[2019-11-27 06:42] LABS: CALCIUM 5.9 mg/dL (8.4-10.2)
[2019-11-27 06:43] LABS: GLUCOSE 43 mg/dL (75-110)
[2019-11-27 06:46] LABS: PLATELET COUNT 31 10^3/uL (150-450)
[2019-11-27] MEDS ORDERED: CALCIUM GLUCONATE 6,666 MG in DEXTROSE 5%-WATER 500 ML IV ONE ×2 (08:00→10:00)
[2019-11-27] MEDS: INSULIN REG, HUMAN 100 UNIT/ML 3 ML VIAL (PYX) SUBCUT SCH ×4 (08:37→22:05)
[2019-11-27] MEDS: MEROPENEM 500 MG in NORMAL SALINE 50 ML IV SCH ×2 (09:58→21:17)
[2019-11-27] MEDS: DOCUSATE SODIUM 100 MG CAPSULE PO SCH ×2 (09:58→17:43)
[2019-11-27] MEDS ORDERED: MEROPENEM 500 MG VIAL IV SCH (10:00)
--- NOTE | 2019-11-27 11:22 | PDOC CONSULTATION ---
Consultation Consult Date: 11/27/19 Attending physician:: PRABHA SNYDER Provider Consulted: HUMAIRA DAN Consult reason:: Patient well-known to oncology clinic with endometrial cancer here with cytopenias, weakness History of Present Illness Admission Date/PCP: 11/26/19 23:22 SHAILESH JOHNSON PA-C Patient complains of: Weakness History of Present Illness: MORGAN ORTEGA is a 79 year old female with endometrial cancer, receiving chemotherapy and [place] through Dr. Reaves, last chemo was 1 week ago. Did not receive chemo this week through their office because of cytopenias. Came to our office with hemoglobin in the 8 range and we transfused her, came back to our office and still was very weak, dehydrated, was admitted, found to be hyp otensive and tachycardic, counts were low, but hemoglobin was better at the 10 range. Platelet count has been low at 30. Creatinine is increased. Past Medical History Cardiac Medical History: Reports: Hyperlipidema - Hypercholesterolemia, Hypertension Denies: Atrial Fibrillation, Coronary Artery Disease, DVT, Myocardial Infarction, Pulmonary Embolism Pulmonary Medical History: Reports: Asthma, Pneumonia Denies: Bronchitis, Chronic Obstructive Pulmonary Disease (COPD) EENT Medical History: Denies: Cataracts, Ears - Hearing aids Neurological Medical History: Denies: Hemorrhagic CVA, Ischemic CVA, Seizures Endocrine Medical History: Reports: Diabetes Mellitus Type 2 Denies: Diabetes Mellitus Type 1, Hyperthyroidism, Hypothyroidism Renal/ Medical History: Reports: Chronic Kidney Disease, End Stage Renal Disease Denies: Nephrolithiasis Malignancy Medical History: Reports: Other - Uterine cancer: Endometrial carcinoma GI Medical History: Denies: Cirrhosis, Hepatitis, Peptic Ulcer Disease Musculoskeltal Medical History: Reports: Arthritis Denies: Gout Skin Medical History: Denies: Eczema, Psoriasis Psychiatric Medical History: Denies: Alcohol Dependency, Depression, Substance Abuse, Tobacco Dependency Traumatic Medical History: Reports: None Hematology: Reports: Anemia Denies: Bleeding Tendencies Infectious Medical History: Reports: None Past Surgical History Past Surgical History: Reports: Cholecystectomy, Hysterectomy, Vascular Surgery - Port-A-Cath placement, Other - Colonoscopy Social History Information Source: Patient Lives with: Spouse/Significant other Smoking Status: Never Smoker Electronic Cigarette use?: No Frequency of Alcohol Use: None Hx Recreational Drug Use: No Drugs: None Hx Prescription Drug Abuse: No - Advance Directive Resuscitation Status: Full Code Family History Family History: CAD, Malignancy - Brain tumor Parental Family History Reviewed: Yes Children Family History Reviewed: Yes Sibling(s) Family History Reviewed.: Yes Medication/Allergy Home Medications: Aspirin [Aspirin 81 mg Chewable Tablet] 81 mg PO DAILY 12/31/16 Atorvastatin Calcium 20 mg PO DAILY 12/31/16 Cetirizine HCl [Zyrtec] 10 mg PO DAILY 12/31/16 Metoprolol Succinate [Toprol Xl] 50 mg PO DAILY 12/31/16 Ondansetron HCl [Zofran 8 mg Tablet] 8 mg PO Q8HP PRN 12/31/16 B-Complex with Vitamin C [Super B Complex-Vitamin C] 1 tab PO DAILY 11/27/19 Calcium Carbonate [Calcium] 600 mg PO BID 11/27/19 Cholecalciferol (Vitamin D3) [Vitamin D3 1000 Unit Tablet] 2,000 unit PO DAILY 11/27/19 Doxazosin Mesylate [Cardura 2 mg Tablet] 2 mg PO QHS 11/27/19 Dulaglutide [Trulicity] 0.75 mg SQ FR@1000 11/27/19 Fluticasone Propionate [Flonase Nasal [place] 50 Mcg/[place] 16 gm] 1 spray NASL DAILY 11/27/19 Furosemide [Lasix 20 mg Tablet] 20 mg PO MOWEFR@1000 11/27/19 Krill/Om-3/Dha/Epa/Phospho/Ast [Maximum Red Krill [place]-3 Sfgl] 1 cap PO DAILY 1 Omeprazole 40 mg PO Q6AM 11/27/19 Oxycodone HCl/Acetaminophen [Percocet 5-325 mg Tablet] 1 tab PO Q4HP PRN 11/27/19 Prochlorperazine Maleate [Compazine 5 mg Tablet] 5 mg PO Q6HP PRN 11/27/19 Allergies/Adverse Reactions: levofloxacin [From Levaquin] Allergy (Verified 12/31/16 15:12) Review of Systems Constitutional: ABSENT: chills, fever(s), headache(s), weight gain, weight loss Eyes: ABSENT: visual disturbances Ears: ABSENT: hearing changes Cardiovascular: ABSENT: chest pain, dyspnea on exertion, edema, orthropnea, palpitations Respiratory: ABSENT: cough, hemoptysis Gastrointestinal: ABSENT: abdominal pain, constipation, diarrhea, hematemesis, hematochezia, nausea, vomiting Genitourinary: ABSENT: dysuria, hematuria Musculoskeletal: ABSENT: joint swelling Integumentary: ABSENT: rash, wounds Neurological: ABSENT: abnormal gait, abnormal speech, confusion, dizziness, focal weakness, syncope Psychiatric: ABSENT: anxiety, depression, homidical ideation, suicidal ideation Endocrine: ABSENT: cold intolerance, heat intolerance, polydipsia, polyuria Hematologic/Lymphatic: ABSENT: easy bleeding, easy bruising Physical Exam Vital Signs: Temp Pulse Resp BP Pulse Ox 98.3 F 89 18 107/89 H 98 11/27/19 07:39 11/27/19 07:39 11/27/19 07:39 11/27/19 07:39 11/27/19 07:39 Intake & Output 11/26/19 11/27/19 11/28/19 06:59 06:59 06:59 Intake Total 500 50 Balance 500 50 Weight 94.8 kg General appearance: PRESENT: no acute distress, well-developed, well-nourished Head exam: PRESENT: atraumatic, normocephalic Eye exam: PRESENT: conjunctiva pink, EOMI, PERRLA. ABSENT: scleral icterus Ear exam: PRESENT: normal external ear exam Mouth exam: PRESENT: moist, tongue midline Neck exam: ABSENT: carotid bruit, JVD, lymphadenopathy, thyromegaly Respiratory exam: PRESENT: clear to auscultation paloma. ABSENT: rales, rhonchi, wheezes Cardiovascular exam: PRESENT: RRR. ABSENT: diastolic murmur, rubs, systolic murmur Pulses: PRESENT: normal dorsalis pedis pul Vascular exam: PRESENT: normal capillary refill GI/Abdominal exam: PRESENT: normal bowel sounds, soft. ABSENT: distended, guarding, mass, organolmegaly, rebound, tenderness Rectal exam: PRESENT: deferred Extremities exam: PRESENT: full ROM. ABSENT: calf tenderness, clubbing, pedal edema Neurological exam: PRESENT: alert, awake, oriented to person, oriented to place, oriented to time, oriented to situation, CN II-XII grossly intact. ABSENT: motor sensory deficit Psychiatric exam: PRESENT: appropriate affect, normal mood. ABSENT: homicidal ideation, suicidal ideation Skin exam: PRESENT: dry, intact, warm. ABSENT: cyanosis, rash Results Laboratory Results: 11/27/19 05:30 11/27/19 05:30 11/26/19 11/26/19 11/26/19 16:53 16:53 16:53 WBC 2.8 L RBC 3.45 L Hgb 10.6 L Hct 30.6 L MCV 89 MCH 30.6 MCHC 34.4 RDW 14.6 H Plt Count 33 L Seg Neutrophils % 78.1 H VBG pH VBG pCO2 VBG HCO3 VBG Base Excess Sodium 139.9 Potassium 5.1 H Chloride 111 H Carbon Dioxide 15 L Anion Gap 14 BUN 69 H Creatinine 4.27 H Est GFR ( Amer) 12 L Glucose 76 Lactic Acid Calcium 6.4 L* Ionized Calcium Gurinder Magnesium 2.6 H Total Bilirubin 0.7 AST 27 Alkaline Phosphatase 103 Total Protein 6.9 Albumin 3.2 L TSH Free T3 pg/mL Urine Color DARK YELLOW Urine Appearance CLOUDY Urine pH 5.0 Ur Specific [place] 1.017 Urine Protein NEGATIVE Urine Glucose (UA) NEGATIVE Urine Ketones TRACE H Urine Blood NEGATIVE Urine Nitrite NEGATIVE Ur Leukocyte Esterase MODERATE H Urine WBC (Auto) 30 Urine RBC (Auto) 6 11/26/19 11/26/19 11/26/19 16:53 18:51 22:55 WBC RBC Hgb Hct MCV MCH MCHC RDW Plt Count Seg Neutrophils % VBG pH VBG pCO2 VBG HCO3 VBG Base Excess Sodium Potassium Chloride Carbon Dioxide Anion Gap BUN Creatinine Est GFR ( Amer) Glucose Lactic Acid < 0.5 L Calcium Ionized Calcium Gurinder 0.90 L Magnesium Total Bilirubin AST Alkaline Phosphatase Total Protein Albumin TSH 2.71 Free T3 pg/mL 1.96 L Urine Color Urine Appearance Urine pH Ur Specific [place] Urine Protein Urine Glucose (UA) Urine Ketones Urine Blood Urine Nitrite Ur Leukocyte Esterase Urine WBC (Auto) Urine RBC (Auto) 11/27/19 11/27/19 11/27/19 03:20 05:30 05:30 WBC 3.1 L RBC 3.21 L Hgb 9.7 L Hct 28.9 L MCV 90 MCH 30.3 MCHC 33.6 RDW 14.8 H Plt Count 31 L Seg Neutrophils % VBG pH VBG pCO2 VBG HCO3 VBG Base Excess Sodium 140.8 Potassium 5.2 H Chloride 114 H Carbon Dioxide 14 L Anion Gap 13 BUN 67 H Creatinine 3.65 H Est GFR ( Amer) 15 L Glucose 43 L Lactic Acid < 0.5 L Calcium 5.9 L* Ionized Calcium Gurinder Magnesium 2.6 H Total Bilirubin AST Alkaline Phosphatase Total Protein Albumin TSH Free T3 pg/mL Urine Color Urine Appearance Urine pH Ur Specific [place] Urine Protein Urine Glucose (UA) Urine Ketones Urine Blood Urine Nitrite Ur Leukocyte Esterase Urine WBC (Auto) Urine RBC (Auto) 11/27/19 05:30 WBC RBC Hgb Hct MCV MCH MCHC RDW Plt Count Seg Neutrophils % VBG pH 7.22 L VBG pCO2 35.1 VBG HCO3 14.1 L VBG Base Excess -12.6 Sodium Potassium Chloride Carbon Dioxide Anion Gap BUN Creatinine Est GFR ( Amer) Glucose Lactic Acid Calcium Ionized Calcium Gurinder Magnesium Total Bilirubin AST Alkaline Phosphatase Total Protein Albumin TSH Free T3 pg/mL Urine Color Urine Appearance Urine pH Ur Specific [place] Urine Protein Urine Glucose (UA) Urine Ketones Urine Blood Urine Nitrite Ur Leukocyte Esterase Urine WBC (Auto) Urine RBC (Auto) 11/26/19 11/26/19 11/27/19 23:48 23:48 05:30 Creatine Kinase 216 H 481 H CK-MB (CK-2) 1.71 Troponin I 0.023 11/27/19 05:30 Creatine Kinase CK-MB (CK-2) 4.04 Troponin I 0.029 Assessment & Plan - Diagnosis (1) Pancytopenia Is this a current diagnosis for this admission?: Yes Plan: Hemoglobin slightly lower at 9.7, platelets stable at 30. Will remain low for some time. Transfuse hemoglobin if he gets under 8, platelets if it gets under 10. Will follow. (2) Endometrial cancer Is this a current diagnosis for this admission?: Yes Plan: Receiving chemotherapy through [place]. We will probably have to hold chemo for 2 weeks at least to let count recovery. - Time Time Spent: Greater than 70 Minutes - Inpatient Certification Based on my medical assessment, after consideration of the patient's comorbidities, presenting symptoms, or acuity I expect that the services needed warrant INPATIENT care.: Yes I certify that my determination is in accordance with my understanding of Medicare's requirements for reasonable and necessary INPATIENT services [42 CFR 412.3e].: Yes Medical Necessity: Risk of Complication if Not Cared For in Hospital
[2019-11-27 13:38] LABS: CREATINE KINASE MB 5.43 ng/mL (<4.55); TROPONIN I 0.024 ng/mL
[2019-11-27] MEDS ORDERED: METOPROLOL TARTRATE 50 MG TABLET PO ONE (17:30)
[2019-11-27] MEDS ORDERED: PROCHLORPERAZINE MALEATE 5 MG TABLET PO PRN (18:25)
[2019-11-27] MEDS ORDERED: ONDANSETRON HCL 8 MG TABLET PO PRN (18:25)
[2019-11-27] MEDS ORDERED: OXYCODONE-ACETAMINOPHEN 5-325 MG TABLET PO PRN (18:25)
--- NOTE | 2019-11-27 18:35 | PDOC PROGRESS REPORT ---
Subjective Progress Note for:: 11/27/19 Subjective:: She reports feeling well. She denies any chest pain or abdominal pain Reason For Visit: SEVERE SEPSIS WITH SEPTIC SHOCK,RENAL FAILURE, Physical Exam Vital Signs: Temp Pulse Resp BP Pulse Ox 97.9 F 84 18 123/52 L 94 11/27/19 15:28 11/27/19 15:28 11/27/19 15:28 11/27/19 15:28 11/27/19 15:28 Intake & Output 11/26/19 11/27/19 11/28/19 06:59 06:59 06:59 Intake Total 500 986.66 Balance 500 986.66 Weight 94.8 kg General appearance: PRESENT: no acute distress, well-developed, well-nourished Head exam: PRESENT: atraumatic, normocephalic Eye exam: PRESENT: conjunctiva pink, EOMI, PERRLA. ABSENT: scleral icterus Ear exam: PRESENT: normal external ear exam Mouth exam: PRESENT: moist, tongue midline Neck exam: ABSENT: carotid bruit, JVD, lymphadenopathy, thyromegaly Respiratory exam: PRESENT: clear to auscultation paloma. ABSENT: rales, rhonchi, wheezes Cardiovascular exam: PRESENT: irregular rhythm, +S1, +S2. ABSENT: diastolic murmur, rubs, systolic murmur GI/Abdominal exam: PRESENT: normal bowel sounds, soft. ABSENT: distended, guarding, mass, organolmegaly, rebound, tenderness Rectal exam: PRESENT: deferred Extremities exam: PRESENT: full ROM. ABSENT: calf tenderness, clubbing, pedal edema Neurological exam: PRESENT: alert, awake, oriented to person, oriented to place, oriented to time, oriented to situation, CN II-XII grossly intact. ABSENT: motor sensory deficit Psychiatric exam: PRESENT: appropriate affect, normal mood. ABSENT: homicidal ideation, suicidal ideation Skin exam: PRESENT: dry, intact, warm. ABSENT: cyanosis, rash Results Laboratory Results: 11/27/19 05:30 11/27/19 05:30 11/26/19 11/26/19 11/26/19 16:53 18:51 22:55 WBC RBC Hgb Hct MCV MCH MCHC RDW Plt Count VBG pH VBG pCO2 VBG HCO3 VBG Base Excess Sodium Potassium Chloride Carbon Dioxide Anion Gap BUN Creatinine Est GFR ( Amer) Glucose Lactic Acid < 0.5 L Calcium Ionized Calcium Gurinder 0.90 L Magnesium TSH 2.71 Free T3 pg/mL 1.96 L 11/27/19 11/27/19 11/27/19 03:20 05:30 05:30 WBC 3.1 L RBC 3.21 L Hgb 9.7 L Hct 28.9 L MCV 90 MCH 30.3 MCHC 33.6 RDW 14.8 H Plt Count 31 L VBG pH VBG pCO2 VBG HCO3 VBG Base Excess Sodium 140.8 Potassium 5.2 H Chloride 114 H Carbon Dioxide 14 L Anion Gap 13 BUN 67 H Creatinine 3.65 H Est GFR ( Amer) 15 L Glucose 43 L Lactic Acid < 0.5 L Calcium 5.9 L* Ionized Calcium Gurinder Magnesium 2.6 H TSH Free T3 pg/mL 11/27/19 11/27/19 05:30 12:45 WBC RBC Hgb Hct MCV MCH MCHC RDW Plt Count VBG pH 7.22 L VBG pCO2 35.1 VBG HCO3 14.1 L VBG Base Excess -12.6 Sodium Potassium Chloride Carbon Dioxide Anion Gap BUN Creatinine Est GFR ( Amer) Glucose Lactic Acid 0.7 Calcium Ionized Calcium Gurinder Magnesium TSH Free T3 pg/mL 11/26/19 11/26/19 11/27/19 23:48 23:48 05:30 Creatine Kinase 216 H 481 H CK-MB (CK-2) 1.71 Troponin I 0.023 11/27/19 11/27/19 11/27/19 05:30 12:45 12:45 Creatine Kinase 802 H CK-MB (CK-2) 4.04 5.43 H Troponin I 0.029 0.024 Assessment and Plan - Diagnosis (1) CKD (chronic kidney disease) stage 4, GFR 15-29 ml/min Is this a current diagnosis for this admission?: Yes (2) Atrial flutter Qualifiers: Atrial flutter type: unspecified Qualified Code(s): I48.92 - Unspecified atrial flutter Is this a current diagnosis for this admission?: Yes (3) Endometrial cancer Is this a current diagnosis for this admission?: Yes (4) Hyperkalemia Is this a current diagnosis for this admission?: Yes (5) Leukopenia Qualifiers: Leukopenia type: unspecified Qualified Code(s): D72.819 - Decreased white blood cell count, unspecified Is this a current diagnosis for this admission?: Yes (6) Pancytopenia Is this a current diagnosis for this admission?: Yes - Plan Summary Summary: She has a history of endometrial cancer currently on chemotherapy with the last chemo 1 week ago she is still thrombocytopenic with a platelet count of 31,000 she has been seen by oncology and recommendations noted Her kidney function is improved currently on 3.65 which is right around where he was in October 2019 3.57 - Time Time Spent with patient: 25-34 minutes Anticipated Discharge Disposition: Home, Self Care Anticipated Discharge Timeframe: within 48 hours
[2019-11-27] MEDS ORDERED: CALCIUM CARBONATE 600 MG TABLET PO ONE ×2 (19:00→21:30)
[2019-11-27] MEDS: ATORVASTATIN CALCIUM 20 MG TABLET PO SCH (21:17)
--- NOTE | 2019-11-27 23:06 | PDOC CONSULTATION ---
Consultation-Blank Consultation: CARDIOLOGY CONSULTATION by Dr. Deandra Salazar on 11/27/2019. Patient seen at 11 AM. 60 minutes spent with patient more than 50% time spent in direct patient care. REASON FOR CONSULTATION: AF patient with new onset atrial flutter. CONSULT REQUESTING PHYSICIAN: Dr. Harden [facility] [place] [facility]. HISTORY OF PRESENT ILLNESS: Patient is a 79-year-old Afro-Romanian female with a history of uterine cancer who had last week chemotherapy in [facility], history of chronic kidney disease stage III, was seen in Dr. Turk's office and found to have hypocalcemia and hypotension. She was sent to the emergency room for further management and the patient had a blood culture which was positive for St aphylococcus coccus aureus species which is not methicillin-resistant. She was also found to be in atrial flutter. The patient's denies any symptoms of palpitations or awareness of irregular beating of the heart. She denies any knowledge of prior history of cardiac arrhythmia. She denies any chest pain or discomfort or coronary artery disease. There is no history of congestive heart failure. She was seen on 11/25/2019 in the emergency room, and although no twelve-lead EKG was done the EKG strip shows sinus rhythm. Hence patient since 11/24/2021 11/26/2019 has developed atrial flutter. Her EKG in 2017 showed sinus rhythm with left axis deviation and left ventricular hypertrophy. She denies any fever chills or rigors. Although no history of CVA she states many years ago she had a minor TIA attack. Past Medical History Cardiac Medical History: Reports: Hyperlipidema - Hypercholesterolemia, Hypertension Denies: Atrial Fibrillation, Coronary Artery Disease, DVT, Myocardial Infarction, Pulmonary Embolism Pulmonary Medical History: Reports: Asthma, Pneumonia Denies: Bronchitis, Chronic Obstructive Pulmonary Disease (COPD) EENT Medical History: Denies: Cataracts, Ears - Hearing aids Neurological Medical History: Denies: Hemorrhagic CVA, Ischemic CVA, Seizures Endocrine Medical History: Reports: Diabetes Mellitus Type 2 Denies: Diabetes Mellitus Type 1, Hyperthyroidism, Hypothyroidism Renal/ Medical History: Reports: Chronic Kidney Disease Denies: Nephrolithiasis Malignancy Medical History: Reports: Other - Uterine cancer: Endometrial carcinoma GI Medical History: Denies: Cirrhosis, Hepatitis, Peptic Ulcer Disease Musculoskeltal Medical History: Reports: Arthritis Denies: Gout Skin Medical History: Denies: Eczema, Psoriasis Psychiatric Medical History: Denies: Alcohol Dependency, Depression, Substance Abuse, Tobacco Dependency Traumatic Medical History: Reports: None Hematology: Reports: Anemia Denies: Bleeding Tendencies Infectious Medical History: Reports: None Past Surgical History Past Surgical History: Reports: Cholecystectomy, Hysterectomy, Vascular Surgery - Port-A-Cath placement, Other - Colonoscopy Social History Information Source: Patient Lives with: Spouse/Significant other Smoking Status: Never Smoker Electronic Cigarette use?: No Frequency of Alcohol Use: None Hx Recreational Drug Use: No Drugs: None Hx Prescription Drug Abuse: No - Advance Directive Resuscitation Status: Full Code Surrogate healthcare decision maker:: Sven Cordova Family History Family History: CAD, Malignancy - Brain tumor Parental Family History Reviewed: Yes Children Family History Reviewed: No Sibling(s) Family History Reviewed.: No Medication/Allergy Home Medications: Acetaminophen [Tylenol Extra Strength 500 mg Tablet] 1 cap PO ASDIR PRN 12/31/16 Aspirin [Aspirin 81 mg Chewable Tablet] 81 mg PO DAILY 12/31/16 Atorvastatin Calcium 1 tab PO DAILY 12/31/16 Cetirizine HCl [Zyrtec] 1 tab PO DAILY 12/31/16 Dulaglutide [Trulicity] 1.5 mg INJ ASDIR 12/31/16 Ferrous Sulfate [Iron] 1 tab PO DAILY 12/31/16 Fluticasone Propionate [Flovent Diskus] 1 inh NASL DAILY 12/31/16 Glimepiride 1 mg PO DAILY 12/31/16 Lisinopril 1 tab PO DAILY 12/31/16 Metoprolol Succinate [Toprol Xl] 1 tab PO DAILY 12/31/16 Hadley-3 Fatty Acids/Fish Oil [Fish Oil 300 mg Softgel] 1 cap PO DAILY 12/31/16 Ondansetron HCl [Zofran 8 mg Tablet] 1 tab PO DAILY PRN 12/31/16 Oxycodone HCl/Acetaminophen [Percocet 5-325 mg Tablet] 1 tab PO ASDIR PRN #8 tablet 12/31/16 Ranitidine HCl 1 tab PO DAILY 12/31/16 Sulfadiazine 1 tab PO TID 12/31/16 Triamterene/Hydrochlorothiazid [Triamterene-Hctz 37.5-25 mg Cp] 1 tab PO DAILY 12/31/16 Cephalexin Monohydrate [Keflex 500 mg Capsule] 250 mg PO BID 5 Days #20 capsule 11/25/19 Cephalexin Monohydrate [Keflex 500 mg Capsule] 500 mg PO BID 5 Days #20 capsule 11/25/19 Oxycodone HCl/Acetaminophen [Percocet 5-325 mg Tablet] 1 - 2 tab PO ASDIR PRN #15 tablet 11/25/19 Oxycodone HCl/Acetaminophen [Percocet 5-325 mg Tablet] 1 - 2 tab PO Q4H PRN #15 tablet 11/25/19 Allergies/Adverse Reactions: levofloxacin [From Levaquin] Allergy (Verified 12/31/16 15:12). RESUSCITATION STATUS: The patient is a full code. Her is her surrogate healthcare decision maker. Current Medications Generic Name Dose Route Start Last Admin Trade Name Freq PRN Reason Stop Dose Admin Acetaminophen 650 mg 11/26/19 23:10 Tylenol 325 Mg Tablet PO 12/26/19 23:09 Q4HP PRN For headache, pain or fever Al Hydrox/Mg Hydrox/Simethicone 30 ml 11/26/19 23:10 Maalox Plus Susp 30 Udcup PO 12/26/19 23:09 Q6HP PRN HEARTBURN Atorvastatin Calcium 20 mg 11/27/19 22:00 11/27/19 21:17 Lipitor 20 Mg Tablet PO 12/27/19 21:59 20 mg QHS DAVIS Administration Calcium Carbonate 600 mg 11/28/19 10:00 Caltrate 600 Mg Tablet PO 12/28/19 09:59 BID DAVIS Cetirizine HCl 10 mg 11/28/19 10:00 Zyrtec 10 Mg Tablet PO 12/28/19 09:59 DAILY DAVIS Cholecalciferol 2,000 unit 11/28/19 10:00 Vitamin D3 1000 Unit Tablet PO 12/28/19 09:59 DAILY DAVIS Dextrose 12.5 gm 11/26/19 23:10 Dextrose Inj 50% Syringe (25 Gm/50 Ml) IV 12/26/19 23:09 PRN PRN FOR BG 50-69 IN ALERT PATIENT Protocol Dextrose 25 gm 11/26/19 23:10 11/27/19 06:49 Dextrose Inj 50% Syringe (25 Gm/50 Ml) IV 12/26/19 23:09 25 gm PRN PRN Administration PER PROTOCOL Protocol Docusate Sodium 100 mg 11/27/19 10:00 11/27/19 17:43 Colace 100 Mg Capsule PO 12/27/19 09:59 Not Given BID [facility] Furosemide 20 mg 11/29/19 10:00 Lasix 20 Mg Tablet PO 12/29/19 09:59 [id number]@1000 [facility] Glucagon 1 mg 11/26/19 23:10 Glucagen Inj 1 Mg Vial IM 12/26/19 23:09 PRN PRN Evaluate for BG < 70 Protocol Glucose 15 gm 11/26/19 23:10 Glutose 40% Gel 15 Gm Tube PO 12/26/19 23:09 PRN PRN FOR BG 50-69 IN ALERT PATIENT Protocol Glucose 30 gm 11/26/19 23:10 Glutose 40% Gel 15 Gm Tube PO 12/26/19 23:09 PRN PRN FOR BG < 50 IN ALERT PATIENT Protocol Guaifenesin 200 mg 11/26/19 23:10 Robitussin Syrup 200 Mg/10 Ml Ud Cup PO 12/26/19 23:09 Q4HP PRN COUGH Meropenem 500 mg/ Sodium 50 mls @ 100 mls/hr 11/27/19 10:00 11/27/19 21:47 Chloride IV 12/04/19 09:59 Infused Q12 [facility] Infusion Influenza Virus Vaccine Quadrival 0.5 ml 11/28/19 08:00 Flulaval Quad 2020-21 Vac 0.5 Ml Syr IM 11/28/19 08:01 .ONCE ONE Insulin Human Regular 0 - 15 unit 11/27/19 08:00 11/27/19 22:05 Humulin R (Pyxis) Insulin 100 Unit/Ml 3ml SUBCUT 12/27/19 07:59 Not Given ACHS [facility] Protocol Lorazepam 1 mg 11/26/19 23:10 Ativan Inj 2 Mg/1 Ml Vial IV 12/03/19 23:09 Q4HP PRN ANXIETY/AGITATION Magnesium Hydroxide 30 ml 11/26/19 23:10 Milk Of Magnesia 30 Ml Udcup PO 12/26/19 23:09 HSP PRN FOR CONSTIPATION Melatonin 5 mg 11/26/19 23:10 Melatonin 5 Mg Tablet PO 12/26/19 23:09 HSP PRN SLEEP OR INSOMNIA Morphine Sulfate 2 mg 11/26/19 23:18 Morphine 10 Mg/Ml Inj IV 12/03/19 23:17 Q2HP PRN PAIN SCALE 2/5 Morphine Sulfate 3 mg 11/26/19 23:18 Morphine 10 Mg/Ml Inj IV 12/03/19 23:17 Q2HP PRN PAIN SCALE 3-4/5 Morphine Sulfate 4 mg 11/26/19 23:18 Morphine 10 Mg/Ml Inj IV 12/03/19 23:17 Q2HP PRN PAIN SCALE 5/5 Ondansetron HCl 8 mg 11/27/19 18:25 Zofran 8 Mg Tablet PO 12/27/19 18:24 Q8HP PRN FOR NAUSEA/VOMITING Oxycodone/Acetaminophen 1 tab 11/27/19 18:25 Percocet 5-325 Mg Tablet PO 12/04/19 18:24 Q4HP PRN MODERATE PAIN Pantoprazole Sodium 40 mg 11/27/19 06:00 11/27/19 05:[address] Tablet PO 12/27/19 05:59 40 mg Q6AM DAVIS Administration Pantoprazole Sodium 40 mg 11/28/19 06:[address] Tablet PO 12/28/19 05:59 Q6AM DAVIS Patient Own Medication 1 tab 11/28/19 10:00 B-Complex With Vitamin C [Super B Complex-Vitamin C] PO 12/28/19 09:59 DAILY DAVIS Prochlorperazine Maleate 5 mg 11/27/19 18:25 Compazine 5 Mg Tablet PO 12/27/19 18:24 Q6HP PRN FOR NAUSEA/VOMITING Sodium Chloride 2.5 ml 11/27/19 06:00 11/27/19 21:18 Saline Flush 2.5 Ml Monoject Prefil Syrin IV 12/27/19 05:59 2.5 ml Q8 DAVIS Administration Discontinued Medications Generic Name Dose Route Start Last Admin Trade Name Freq PRN Reason Stop Dose Admin Calcium Carbonate 600 mg 11/27/19 19:00 11/27/19 21:13 Caltrate 600 Mg Tablet PO 11/27/19 19:01 Not Given NOW ONE Calcium Carbonate 600 mg 11/27/19 21:30 11/27/19 21:17 Caltrate 600 Mg Tablet PO 11/27/19 21:31 600 mg NOW ONE Administration Calcium Gluconate 1,000 mg 11/26/19 21:06 11/26/19 22:21 Calcium Gluconate Inj 1000 Mg/10 Ml IV 11/26/19 21:07 1,000 mg NOW ONE Administration Digoxin 0.25 mg 11/26/19 23:30 11/26/19 23:32 Lanoxin Inj 0.5 Mg/2 Ml Ampule IV 11/26/19 23:31 0.25 mg NOW ONE Administration Sodium Chloride 250 mls @ 0 mls/hr 11/26/19 18:18 11/26/19 20:31 Nacl 0.9% 250 Ml Iv Soln IV 11/26/19 18:19 Infused NOW ONE Infusion Wide Open Sodium Chloride 250 mls @ 0 mls/hr 11/26/19 21:11 11/26/19 22:00 Nacl 0.9% 250 Ml Iv Soln IV 11/26/19 21:12 Infused NOW ONE Infusion Wide Open Calcium Gluconate 6,666 mg/ 566.66 mls @ 141.665 mls/hr 11/27/19 08:00 11/27/19 09:16 Dextrose IV 11/27/19 11:59 Not Given NOW ONE Calcium Gluconate 6,666 mg/ 566.66 mls @ 141.665 mls/hr 11/27/19 10:00 11/27/19 14:13 Dextrose IV 11/27/19 13:59 Infused NOW ONE Infusion Levothyroxine Sodium 0.1 mg 11/26/19 23:45 11/27/19 21:11 Synthroid Inj/Pf 0.1 Mg Sdv IV 11/26/19 23:46 Not Given NOW ONE Levothyroxine Sodium Confirm 11/27/19 01:10 11/27/19 01:16 Synthroid Inj/Pf 0.1 Mg Sdv Administered 11/27/19 01:11 0.1 mg Dose Administration 0.1 mg .ROUTE .STK-MED ONE Meropenem 1 gm 11/26/19 21:05 11/26/19 22:34 Merrem 1 Gm Vial IV 11/26/19 21:06 1 gm IVBAG (ED) ONE Administration Metoprolol Tartrate 50 mg 11/27/19 17:30 11/27/19 17:35 Lopressor 50 Mg Tablet PO 11/27/19 17:31 50 mg NOW ONE Administration Review of Systems Constitutional: PRESENT: as per HPI, fatigue, weakness. ABSENT: chills, fever(s) Eyes: ABSENT: visual disturbances, other - Eye pain Ears: ABSENT: hearing changes, other - Ear pain Nose, Mouth, and Throat: ABSENT: headache(s), sore throat Cardiovascular: PRESENT: as per HPI, other - Hypotension. ABSENT: chest pain, palpitations Respiratory: ABSENT: cough, dyspnea Gastrointestinal: ABSENT: abdominal pain, constipation, diarrhea, nausea, vomiting Genitourinary: ABSENT: dysuria, hematuria Musculoskeletal: PRESENT: as per HPI, muscle weakness - Generalized. ABSENT: joint swelling Integumentary: ABSENT: pruritus, rash Neurological: ABSENT: confusion, convulsions, focal weakness, memory loss, syncope Psychiatric: ABSENT: anxiety, depression Endocrine: ABSENT: cold intolerance, heat intolerance Hematologic/Lymphatic: PRESENT: easy bruising - Since chemotherapy. ABSENT: easy bleeding Allergic/Immunologic: ABSENT: seasonal rhinorrhea Physical Exam: The patient is mild to moderately obese. At present in no acute distress. Selected Entries 11/27/19 15:28 Temperature 97.9 F Temperature Oral Source Pulse Rate 84 Respiratory 18 Rate Blood Pressure 123/52 L Blood Pressure 75 Mean BP Location Left Arm BP Position Supine O2 Sat by Pulse 94 Oximetry Oxygen Delivery Room Air Method HEAD: Is atraumatic normocephalic. EYES: Pupils are equal round regular reactive to light accommodation. Extraocular movements are normal. There is some mild conjunctival pallor. There is no scleral icterus. NOSE: There is no deviated nasal septum. There is no inflammation nasal mucous membrane. MOUTH: Mucous membranes of mouth are dry tongue is dry. There is no ulcers or bleeding from the gums. THROAT: There is no redness of the oropharynx. There is no exudates. SKIN: There is no petechia or ecchymosis. There is no skin lesions or skin rashes. NECK: Is supple. There is no JVD. Carotids are equal there is no bruit. There is no lymphadenopathy. There is no goiter. There is no accessory muscle respiration use. LUNGS: Trachea central. Lungs are clear to auscultation percussion. There is no rhonchi rales or wheezing. HEART: S1-S2 is heard. S1 is of variable intensity. There is no S3 gallop. There is no S4 gallop. There is systolic murmur left sternal border and the apex there is no rub. ABDOMEN: Soft. There is no hepatosplenomegaly. Bowel sounds are well heard. EXTREMITIES: Femorals are deep femorals are diminished. Leg pulses are well felt. There is no pedal edema. There is no DVT or cellulitis. There is no calf tenderness. PELLETIZER: The patient is conscious awake alert oriented x3 with no focal deficits. PSYCHIATRIC: The patient judgment insight are intact her affect is normal. Labs- Entire Visit 11/26/19 11/26/19 11/26/19 16:53 16:53 16:53 WBC 2.8 L RBC 3.45 L Hgb 10.6 L Hct 30.6 L MCV 89 MCH 30.6 MCHC 34.4 RDW 14.6 H Plt Count 33 L Lymph % (Auto) 18.3 [place] % (Auto) 2.6 L Eos % (Auto) 0.8 Baso % (Auto) 0.2 Absolute Neuts (auto) 2.2 Absolute Lymphs (auto) 0.5 Absolute Monos (auto) 0.1 Absolute Eos (auto) 0.0 Absolute Basos (auto) 0.0 Seg Neutrophils % 78.1 H VBG pH VBG pCO2 VBG HCO3 VBG Base Excess Sodium 139.9 Potassium 5.1 H Chloride 111 H Carbon Dioxide 15 L Anion Gap 14 BUN 69 H Creatinine 4.27 H Est GFR ( Amer) 12 L Est GFR (MDRD) Non-Af 10 L Glucose 76 POC Glucose Hemoglobin A1c % Lactic Acid Calcium 6.4 L* Ionized Calcium Gurinder Magnesium 2.6 H Total Bilirubin 0.7 Direct Bilirubin 0.4 Neonat Total Bilirubin Not Reportable Neonat Direct Bilirubin Not Reportable Neonat Indirect Bili Not Reportable AST 27 ALT 10 Alkaline Phosphatase 103 Creatine Kinase CK-MB (CK-2) Troponin I Total Protein 6.9 Albumin 3.2 L TSH Free T3 pg/mL Urine Color DARK YELLOW Urine Appearance CLOUDY Urine pH 5.0 Ur Specific Erlanger 1.017 Urine Protein NEGATIVE Urine Glucose (UA) NEGATIVE Urine Ketones TRACE H Urine Blood NEGATIVE Urine Nitrite NEGATIVE Urine Bilirubin NEGATIVE Urine Urobilinogen NEGATIVE Ur Leukocyte Esterase MODERATE H Urine WBC (Auto) 30 Urine RBC (Auto) 6 U Hyaline Cast (Auto) 7 Urine Bacteria (Auto) 1+ Squamous Epi Cells Auto 2 Urine Mucus (Auto) RARE Urine Ascorbic Acid 40 H 11/26/19 11/26/19 11/26/19 16:53 18:51 22:55 WBC RBC Hgb Hct MCV MCH MCHC RDW Plt Count Lymph % (Auto) [place] % (Auto) Eos % (Auto) Baso % (Auto) Absolute Neuts (auto) Absolute Lymphs (auto) Absolute Monos (auto) Absolute Eos (auto) Absolute Basos (auto) Seg Neutrophils % VBG pH VBG pCO2 VBG HCO3 VBG Base Excess Sodium Potassium Chloride Carbon Dioxide Anion Gap BUN Creatinine Est GFR ( Amer) Est GFR (MDRD) Non-Af Glucose POC Glucose Hemoglobin A1c % Lactic Acid < 0.5 L Calcium Ionized Calcium Gurinder 0.90 L Magnesium Total Bilirubin Direct Bilirubin Neonat Total Bilirubin Neonat Direct Bilirubin Neonat Indirect Bili AST ALT Alkaline Phosphatase Creatine Kinase CK-MB (CK-2) Troponin I Total Protein Albumin TSH 2.71 Free T3 pg/mL 1.96 L Urine Color Urine Appearance Urine pH Ur Specific Erlanger Urine Protein Urine Glucose (UA) Urine Ketones Urine Blood Urine Nitrite Urine Bilirubin Urine Urobilinogen Ur Leukocyte Esterase Urine WBC (Auto) Urine RBC (Auto) U Hyaline Cast (Auto) Urine Bacteria (Auto) Squamous Epi Cells Auto Urine Mucus (Auto) Urine Ascorbic Acid 11/26/19 11/26/19 11/27/19 23:48 23:48 03:20 WBC RBC Hgb Hct MCV MCH MCHC RDW Plt Count Lymph % (Auto) [place] % (Auto) Eos % (Auto) Baso % (Auto) Absolute Neuts (auto) Absolute Lymphs (auto) Absolute Monos (auto) Absolute Eos (auto) Absolute Basos (auto) Seg Neutrophils % VBG pH VBG pCO2 VBG HCO3 VBG Base Excess Sodium Potassium Chloride Carbon Dioxide Anion Gap BUN Creatinine Est GFR ( Amer) Est GFR (MDRD) Non-Af Glucose POC Glucose Hemoglobin A1c % Lactic Acid < 0.5 L Calcium Ionized Calcium Gurinder Magnesium Total Bilirubin Direct Bilirubin Neonat Total Bilirubin Neonat Direct Bilirubin Neonat Indirect Bili AST ALT Alkaline Phosphatase Creatine Kinase 216 H CK-MB (CK-2) 1.71 Troponin I 0.023 Total Protein Albumin TSH Free T3 pg/mL Urine Color Urine Appearance Urine pH Ur Specific Erlanger Urine Protein Urine Glucose (UA) Urine Ketones Urine Blood Urine Nitrite Urine Bilirubin Urine Urobilinogen Ur Leukocyte Esterase Urine WBC (Auto) Urine RBC (Auto) U Hyaline Cast (Auto) Urine Bacteria (Auto) Squamous Epi Cells Auto Urine Mucus (Auto) Urine Ascorbic Acid 10/03/20 10/03/20 10/03/20 05:30 05:30 05:30 WBC 3.1 L RBC 3.21 L Hgb 9.7 L Hct 28.9 L MCV 90 MCH 30.3 MCHC 33.6 RDW 14.8 H Plt Count 31 L Lymph % (Auto) [place] % (Auto) Eos % (Auto) Baso % (Auto) Absolute Neuts (auto) Absolute Lymphs (auto) Absolute Monos (auto) Absolute Eos (auto) Absolute Basos (auto) Seg Neutrophils % VBG pH VBG pCO2 VBG HCO3 VBG Base Excess Sodium 140.8 Potassium 5.2 H Chloride 114 H Carbon Dioxide 14 L Anion Gap 13 BUN 67 H Creatinine 3.65 H Est GFR ( Amer) 15 L Est GFR (MDRD) Non-Af 12 L Glucose 43 L POC Glucose Hemoglobin A1c % 5.7 Lactic Acid Calcium 5.9 L* Ionized Calcium Gurinder Magnesium 2.6 H Total Bilirubin Direct Bilirubin Neonat Total Bilirubin Neonat Direct Bilirubin Neonat Indirect Bili AST ALT Alkaline Phosphatase Creatine Kinase 481 H CK-MB (CK-2) Troponin I Total Protein Albumin TSH Free T3 pg/mL Urine Color Urine Appearance Urine pH Ur Specific Erlanger Urine Protein Urine Glucose (UA) Urine Ketones Urine Blood Urine Nitrite Urine Bilirubin Urine Urobilinogen Ur Leukocyte Esterase Urine WBC (Auto) Urine RBC (Auto) U Hyaline Cast (Auto) Urine Bacteria (Auto) Squamous Epi Cells Auto Urine Mucus (Auto) Urine Ascorbic Acid 11/27/19 11/27/19 11/27/19 05:30 05:30 07:13 WBC RBC Hgb Hct MCV MCH MCHC RDW Plt Count Lymph % (Auto) [place] % (Auto) Eos % (Auto) Baso % (Auto) Absolute Neuts (auto) Absolute Lymphs (auto) Absolute Monos (auto) Absolute Eos (auto) Absolute Basos (auto) Seg Neutrophils % VBG pH 7.22 L VBG pCO2 35.1 VBG HCO3 14.1 L VBG Base Excess -12.6 Sodium Potassium Chloride Carbon Dioxide Anion Gap BUN Creatinine Est GFR ( Amer) Est GFR (MDRD) Non-Af Glucose POC Glucose 158 H Hemoglobin A1c % Lactic Acid Calcium Ionized Calcium Gurinder Magnesium Total Bilirubin Direct Bilirubin Neonat Total Bilirubin Neonat Direct Bilirubin Neonat Indirect Bili AST ALT Alkaline Phosphatase Creatine Kinase CK-MB (CK-2) 4.04 Troponin I 0.029 Total Protein Albumin TSH Free T3 pg/mL Urine Color Urine Appearance Urine pH Ur Specific Erlanger Urine Protein Urine Glucose (UA) Urine Ketones Urine Blood Urine Nitrite Urine Bilirubin Urine Urobilinogen Ur Leukocyte Esterase Urine WBC (Auto) Urine RBC (Auto) U Hyaline Cast (Auto) Urine Bacteria (Auto) Squamous Epi Cells Auto Urine Mucus (Auto) Urine Ascorbic Acid 11/27/19 11/27/19 11/27/19 07:39 07:48 11:25 WBC RBC Hgb Hct MCV MCH MCHC RDW Plt Count Lymph % (Auto) [place] % (Auto) Eos % (Auto) Baso % (Auto) Absolute Neuts (auto) Absolute Lymphs (auto) Absolute Monos (auto) Absolute Eos (auto) Absolute Basos (auto) Seg Neutrophils % VBG pH VBG pCO2 VBG HCO3 VBG Base Excess Sodium Potassium Chloride Carbon Dioxide Anion Gap BUN Creatinine Est GFR ( Amer) Est GFR (MDRD) Non-Af Glucose POC Glucose 151 H 161 H 109 Hemoglobin A1c % Lactic Acid Calcium Ionized Calcium Gurinder Magnesium Total Bilirubin Direct Bilirubin Neonat Total Bilirubin Neonat Direct Bilirubin Neonat Indirect Bili AST ALT Alkaline Phosphatase Creatine Kinase CK-MB (CK-2) Troponin I Total Protein Albumin TSH Free T3 pg/mL Urine Color Urine Appearance Urine pH Ur Specific Erlanger Urine Protein Urine Glucose (UA) Urine Ketones Urine Blood Urine Nitrite Urine Bilirubin Urine Urobilinogen Ur Leukocyte Esterase Urine WBC (Auto) Urine RBC (Auto) U Hyaline Cast (Auto) Urine Bacteria (Auto) Squamous Epi Cells Auto Urine Mucus (Auto) Urine Ascorbic Acid 11/27/19 11/27/19 11/27/19 12:45 12:45 12:45 WBC RBC Hgb Hct MCV MCH MCHC RDW Plt Count Lymph % (Auto) [place] % (Auto) Eos % (Auto) Baso % (Auto) Absolute Neuts (auto) Absolute Lymphs (auto) Absolute Monos (auto) Absolute Eos (auto) Absolute Basos (auto) Seg Neutrophils % VBG pH VBG pCO2 VBG HCO3 VBG Base Excess Sodium Potassium Chloride Carbon Dioxide Anion Gap BUN Creatinine Est GFR ( Amer) Est GFR (MDRD) Non-Af Glucose POC Glucose Hemoglobin A1c % Lactic Acid 0.7 Calcium Ionized Calcium Gurinder Magnesium Total Bilirubin Direct Bilirubin Neonat Total Bilirubin Neonat Direct Bilirubin Neonat Indirect Bili AST ALT Alkaline Phosphatase Creatine Kinase 802 H CK-MB (CK-2) 5.43 H Troponin I 0.024 Total Protein Albumin TSH Free T3 pg/mL Urine Color Urine Appearance Urine pH Ur Specific Erlanger Urine Protein Urine Glucose (UA) Urine Ketones Urine Blood Urine Nitrite Urine Bilirubin Urine Urobilinogen Ur Leukocyte Esterase Urine WBC (Auto) Urine RBC (Auto) U Hyaline Cast (Auto) Urine Bacteria (Auto) Squamous Epi Cells Auto Urine Mucus (Auto) Urine Ascorbic Acid 11/27/19 11/27/19 11/27/19 15:28 18:15 21:34 WBC RBC Hgb Hct MCV MCH MCHC RDW Plt Count Lymph % (Auto) [place] % (Auto) Eos % (Auto) Baso % (Auto) Absolute Neuts (auto) Absolute Lymphs (auto) Absolute Monos (auto) Absolute Eos (auto) Absolute Basos (auto) Seg Neutrophils % VBG pH VBG pCO2 VBG HCO3 VBG Base Excess Sodium Potassium Chloride Carbon Dioxide Anion Gap BUN Creatinine Est GFR ( Amer) Est GFR (MDRD) Non-Af Glucose POC Glucose 127 H 138 H Hemoglobin A1c % Lactic Acid 0.7 Calcium Ionized Calcium Gurinder Magnesium Total Bilirubin Direct Bilirubin Neonat Total Bilirubin Neonat Direct Bilirubin Neonat Indirect Bili AST ALT Alkaline Phosphatase Creatine Kinase CK-MB (CK-2) Troponin I Total Protein Albumin TSH Free T3 pg/mL Urine Color Urine Appearance Urine pH Ur Specific Erlanger Urine Protein Urine Glucose (UA) Urine Ketones Urine Blood Urine Nitrite Urine Bilirubin Urine Urobilinogen Ur Leukocyte Esterase Urine WBC (Auto) Urine RBC (Auto) U Hyaline Cast (Auto) Urine Bacteria (Auto) Squamous Epi Cells Auto Urine Mucus (Auto) Urine Ascorbic Acid The patient had 2 EKGs on 11/26/2019 both of which shows atrial flutter with left ventricular hypertrophy. IMPRESSION/RECOMMENDATION: 1. Recent onset of atrial flutter. At present ventricle response is controlled. Would continue the patient's beta-patrice. Note in spite of the patient's Gulshan vas 2 score which is 5 the patient's has bled score is also very high. Also recent anemia. Hence patient will be high risk for chronic anticoagulation at this point. Will discuss with oncology. THE PATIENT'S GULSHAN 2 VASCULAR SCORE is 7. [2 for age, 1 for female gender, 1 for hypertension, 1 for diabetes mellitus, and 2 history of TIA]. One option is once the patient is stabilized would recommend EP consultation for either atrial flutter ablation or watchman procedure. But even for this she has to stay on anticoagulation for a little while. 2. Anemia: Patient recently transfused with packed RBC units as an outpatient. 3. Hypocalcemia: Replace the patient's calcium. 4. Hypertension: Blood pressure well controlled. 5. Diabetes mellitus type 2 with diabetic nephropathy. Continue antidiabetic medication. 6. Chronic kidney disease stage III: Avoid nephrotoxic drugs. 7. Dehydration. Continue IV fluids 8. Possible sepsis with positive blood cultures for Staphylococcus aureus which is not methicillin-resistant. Continue IV antibiotics. 9. History of uterine cancer: Hematology on consult. Medications reviewed. Medical regimen and management plan discussed with attending provider on the case. Medical decision making is of high complexity. 60 minutes spent as patient more than 50% time spent on direct patient care. Will follow. Later would recommend that the patient have a echocardiogram and a IV Lexiscan Cardiolite stress test. Would get the echocardiogram with the patient's heart rate is controlled. Would recommend the patient have IV Lexiscan Cardiolite which can be done as an outpatient. Medical decision making is of high complexity. Discussed with the patient and the patient's . Will follow
--- NOTE | 2019-11-27 23:18 | CDI QUERY ---
CDI Query CDI Review: We are seeking further clarification of documentation to reflect the severity of illness of your patient. Per Oncology Notes: (1) Pancytopenia Hemoglobin slightly lower at 9.7, platelets stable at 30. Will remain low for some time. Transfuse hemoglobin if he gets under 8, platelets if it gets under 10. Will follow. (2) Endometrial cancer Receiving chemotherapy through [place]. We will probably have to hold chemo for 2 weeks at least to let count recovery. Based on your medical judgement, can you further clarify in the Progress Notes: > Pancytopenia due to chemotherapy > Pancytopenia due to another medication (please specify) > Pancytopenia due to another disease process (please specify) > Pancytopenia due to unknown cause > Other (please specify) >None of the above / Not applicable Thank you for your consideration. ALLISON CasasN RN Clinical Litigator Physician Advisor [email or web address]
[2019-11-28] MEDS: METOPROLOL SUCCINATE 50 MG TAB.SR.24H PO SCH ×2 (04:26→09:28)
[2019-11-28 05:40] LABS: HEMATOCRIT 28.4 % (36.0-47.0); HEMOGLOBIN 9.5 g/dL (12.0-15.5); MEAN CORPUSCULAR HEMOGLOBIN 30.5 pg (27.0-33.4); MEAN CORPUSCULAR HGB CONC 33.4 g/dL (32.0-36.0); MEAN CORPUSCULAR VOLUME 91 fl (80-97); RED BLOOD COUNT 3.11 10^6/uL (3.72-5.28); RED CELL DISTRIBUTION WIDTH 14.7 % (11.5-14.0); WHITE BLOOD COUNT 2.9 10^3/uL (4.0-10.5)
[2019-11-28 06:04] LABS: ANION GAP 10 (5-19); BLOOD UREA NITROGEN 61 mg/dL (7-20); CALCIUM 7.4 mg/dL (8.4-10.2); CARBON DIOXIDE 17 mmol/L (22-30); CHLORIDE 111 mmol/L (98-107); GLUCOSE 96 mg/dL (75-110)
[2019-11-28] MEDS: PANTOPRAZOLE SODIUM 40 MG TABLET.DR PO SCH ×2 (06:34→06:43)
[2019-11-28 06:47] LABS: PLATELET COUNT 37 10^3/uL (150-450)
[2019-11-28] MEDS ORDERED: INFLUENZA QUAD (6MOS+) 2020-21 VAC 0.5 ML SYR IM ONE (08:00)
[2019-11-28] MEDS: INSULIN REG, HUMAN 100 UNIT/ML 3 ML VIAL (PYX) SUBCUT SCH ×4 (08:48→22:03)
[2019-11-28] MEDS: DOCUSATE SODIUM 100 MG CAPSULE PO SCH ×2 (09:27→17:15)
[2019-11-28] MEDS: CETIRIZINE 10 MG TABLET PO SCH (09:28)
[2019-11-28] MEDS: MEROPENEM 500 MG in NORMAL SALINE 50 ML IV SCH ×2 (09:28→22:04)
[2019-11-28] MEDS: CHOLECALCIFEROL (D3) 1,000 UNIT (25 MCG) TABLET PO SCH (09:28)
[2019-11-28] MEDS: CALCIUM CARBONATE 600 MG TABLET PO SCH ×2 (09:28→22:03)
[2019-11-28] MEDS ORDERED: B COMPLEX WITH VITAMIN C PO SCH (10:00)
--- NOTE | 2019-11-28 14:33 | PDOC PROGRESS REPORT ---
Subjective Progress Note for:: 11/28/19 Subjective:: She reports feeling well. She denies any chest pain or abdominal pain Reason For Visit: SEVERE SEPSIS WITH SEPTIC SHOCK,RENAL FAILURE, Physical Exam Vital Signs: Temp Pulse Resp BP Pulse Ox 97.9 F 74 18 100/49 L 99 11/28/19 10:58 11/28/19 10:58 11/28/19 10:58 11/28/19 10:58 11/28/19 10:58 Intake & Output 11/27/19 11/28/19 11/29/19 06:59 06:59 06:59 Intake Total 500 650 Balance 500 650 Weight 94.8 kg 81.2 kg General appearance: PRESENT: no acute distress, well-developed, well-nourished Head exam: PRESENT: atraumatic, normocephalic Eye exam: PRESENT: conjunctiva pink, EOMI, PERRLA. ABSENT: scleral icterus Ear exam: PRESENT: normal external ear exam Mouth exam: PRESENT: moist, tongue midline Neck exam: ABSENT: carotid bruit, JVD, lymphadenopathy, thyromegaly Respiratory exam: PRESENT: clear to auscultation paloma. ABSENT: rales, rhonchi, wheezes Cardiovascular exam: PRESENT: irregular rhythm, +S1, +S2. ABSENT: diastolic murmur, rubs, systolic murmur Pulses: PRESENT: normal dorsalis pedis pul Vascular exam: PRESENT: normal capillary refill GI/Abdominal exam: PRESENT: normal bowel sounds, soft. ABSENT: distended, guarding, mass, organolmegaly, rebound, tenderness Rectal exam: PRESENT: deferred Extremities exam: PRESENT: full ROM. ABSENT: calf tenderness, clubbing, pedal edema Neurological exam: PRESENT: alert, awake, oriented to person, oriented to place, oriented to time, oriented to situation, CN II-XII grossly intact. ABSENT: motor sensory deficit Psychiatric exam: PRESENT: appropriate affect, normal mood. ABSENT: homicidal ideation, suicidal ideation Skin exam: PRESENT: dry, intact, warm. ABSENT: cyanosis, rash Results Laboratory Results: 11/28/19 04:35 11/28/19 04:35 11/27/19 11/28/19 11/28/19 18:15 04:35 04:35 WBC 2.9 L RBC 3.11 L Hgb 9.5 L Hct 28.4 L MCV 91 MCH 30.5 MCHC 33.4 RDW 14.7 H Plt Count 37 L Sodium 137.6 Potassium 5.0 Chloride 111 H Carbon Dioxide 17 L Anion Gap 10 BUN 61 H Creatinine 3.30 H Est GFR ( Amer) 16 L Glucose 96 Lactic Acid 0.7 Calcium 7.4 L Magnesium 2.6 H 11/26/19 16:53 Clean Catch Midstream Urine Culture - Final NO GROWTH 2 DAYS 11/26/19 11/26/19 11/27/19 23:48 23:48 05:30 Creatine Kinase 216 H 481 H CK-MB (CK-2) 1.71 Troponin I 0.023 11/27/19 11/27/19 11/27/19 05:30 12:45 12:45 Creatine Kinase 802 H CK-MB (CK-2) 4.04 5.43 H Troponin I 0.029 0.024 Assessment and Plan - Diagnosis (1) CKD (chronic kidney disease) stage 4, GFR 15-29 ml/min Is this a current diagnosis for this admission?: Yes (2) Atrial flutter Qualifiers: Atrial flutter type: unspecified Qualified Code(s): I48.92 - Unspecified atrial flutter Is this a current diagnosis for this admission?: Yes (3) Endometrial cancer Is this a current diagnosis for this admission?: Yes (4) Hyperkalemia Is this a current diagnosis for this admission?: Yes (5) Leukopenia Qualifiers: Leukopenia type: unspecified Qualified Code(s): D72.819 - Decreased white blood cell count, unspecified Is this a current diagnosis for this admission?: Yes (6) Pancytopenia Is this a current diagnosis for this admission?: Yes Plan: Due to chemotherapy - Plan Summary Summary: She has a history of endometrial cancer currently on chemotherapy with the last chemo 1 week ago she is still thrombocytopenic with a platelet count of 31,000 she has been seen by oncology and recommendations noted Her kidney function is improved currently on 3.65 which is right around where he was in October 2019 3.57 11/27 Patient remains pancytopenic secondary to chemotherapy however platelet count ap pears to be making a recovery at 37,000 today. Kidney function also improved with her creatinine down to [id number]. She remains acidotic and her blood pressure remains somewhat borderline however there are any changes in her mental status. She remains in atrial fibrillation flutter. Blood and urine cultures have been negative and she has remained afebrile. She has been on meropenem since admission on November 26. With negative cultures, been afebrile and no clear-cut evidence of infection I think you probably can discontinue meropenem tomorrow and continue to monitor urinalysis on admission did show 30 WBCs with moderate leukocyte esterase, cultures were negative but at this point after 3 days of IV antibiotics I believe this should be okay. As for her atrial flutter this is controlled with metoprolol. She however is on no anticoagulant due to her high has bled score. Her chads 2 Vasc score is 7. We will follow-up with cardiology recommendations. For calcium may Hypertension Chronic kidney disease stage IV we will continue to monitor kidney function. I will start out from bicarb due to the acidosis - Time Time Spent with patient: 15-24 minutes Medications reviewed and adjusted accordingly: Yes Anticipated Discharge Disposition: Home, Self Care Anticipated Discharge Timeframe: within 48 hours
--- NOTE | 2019-11-28 15:37 | EKG REPORT ---
SEVERITY:- ABNORMAL ECG - ATRIAL FLUTTER/FIBRILLATION, A-RATE 306 LEFT VENTRICULAR HYPERTROPHY CONSIDER OLD ANTEROSEPTAL VA. : Confirmed by: Lior Davis MD 28-Nov-2019 15:36:37
[2019-11-28] MEDS: SODIUM BICARBONATE 650 MG TABLET PO SCH ×2 (15:57→22:03)
--- NOTE | 2019-11-28 20:49 | Progress Note ---
Provider Note Provider Note: CARDIOLOGY PROGRESS NOTE by Dr. Deandra Salazar on 11/28/2019. OBJECTIVE: The patient denies any chest pain or discomfort. There is no shortness of breath. There is no PND orthopnea or leg edema. She still remains in atrial flutter with a controlled ventricular response. The patient is not however aware of any palpitations. There is no near-syncope syncope. There is no ventricle arrhythmia seen on the monitor. On examination the patient is mildly overweight. At present no acute distress. Selected Entries 11/28/19 19:53 Temperature 97.8 F Temperature Oral Source Pulse Rate 74 Respiratory 16 Rate Blood Pressure 111/50 L Blood Pressure 70 Mean BP Location Left Arm BP Position Supine O2 Sat by Pulse 99 Oximetry Oxygen Delivery Room Air Method HEAD: Is atraumatic normocephalic. EYES: Pupils are equal round regular reactive to light accommodation. Extraocular movements are normal. There is some mild conjunctival pallor. There is no scleral icterus. NOSE: There is no deviated nasal septum. There is no inflammation nasal mucous membrane. MOUTH: Mucous membranes of mouth are dry tongue is dry. There is no ulcers or bleeding from the gums. THROAT: There is no redness of the oropharynx. There is no exudates. SKIN: There is no petechia or ecchymosis. There is no skin lesions or skin rashes. NECK: Is supple. There is no JVD. Carotids are equal there is no bruit. There is no lymphadenopathy. There is no goiter. There is no ac cessory muscle respiration use. LUNGS: Trachea central. Lungs are clear to auscultation percussion. There is no rhonchi rales or wheezing. HEART: S1-S2 is heard. S1 is of variable intensity. There is no S3 gallop. There is no S4 gallop. There is systolic murmur left sternal border and the apex there is no rub. ABDOMEN: Soft. There is no hepatosplenomegaly. Bowel sounds are well heard. EXTREMITIES: Femorals are deep femorals are diminished. Leg pulses are well felt. There is no pedal edema. There is no DVT or cellulitis. There is no calf tenderness. 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 PSYCHIATRIC: The patient judgment insight are intact her affect is normal. FLFIB] . ATRIAL FLUTTER/FIBRILLATION, A-RATE 306 [LVH] . LEFT VENTRICULAR HYPERTROPHY - STMT - * CONSIDER OLD ANTEROSEPTAL MD. Labs- All tests 24 hr 11/27/19 11/28/19 11/28/19 21:34 04:35 04:35 WBC 2.9 L RBC 3.11 L Hgb 9.5 L Hct 28.4 L MCV 91 MCH 30.5 MCHC 33.4 RDW 14.7 H Plt Count 37 L Sodium 137.6 Potassium 5.0 Chloride 111 H Carbon Dioxide 17 L Anion Gap 10 BUN 61 H Creatinine 3.30 H Est GFR ( Amer) 16 L Est GFR (MDRD) Non-Af 14 L Glucose 96 POC Glucose 138 H Calcium 7.4 L Magnesium 2.6 H 11/28/19 11/28/19 11/28/19 07:38 11:00 16:40 WBC RBC Hgb Hct MCV MCH MCHC RDW Plt Count Sodium Potassium Chloride Carbon Dioxide Anion Gap BUN Creatinine Est GFR ( Amer) Est GFR (MDRD) Non-Af Glucose POC Glucose 103 144 H 151 H Calcium Magnesium IMPRESSION/RECOMMENDATION: 1. Recent onset of atrial flutter. At present ventricle response is controlled. Would continue the patient's beta-patrice. Note in spite of the patient's Gulshan vas 2 score which is 5 the patient's has bled score is also very high. Also recent anemia. Hence patient will be high risk for chronic anticoagulation at this point. Will discuss with oncology. THE PATIENT'S GULSHAN 2 VASCULAR SCORE is 7. [2 for age, 1 for female gender, 1 for hypertension, 1 for diabetes mellitus, and 2 history of TIA]. One option is once the patient is stabilized would recommend EP consultation for either atrial flutter ablation or watchman procedure. But even for this she has to stay on anticoagulation for a little while. 2. Anemia: Patient recently transfused with packed RBC units as an outpatient. 3. Hypocalcemia: Replace the patient's calcium. 4. Hypertension: Blood pressure well controlled. 5. Diabetes mellitus type 2 with diabetic nephropathy. Continue antidiabetic medication. 6. Chronic kidney disease stage III: Avoid nephrotoxic drugs. 7. Dehydration. Continue IV fluids 8. Possible sepsis with positive blood cultures for Staphylococcus aureus which is not methicillin-resistant. Continue IV antibiotics. 9. History of uterine cancer: Hematology on consult. Medications reviewed. Medical regimen and management plan discussed with attending provider on the case. Medical decision making is of high complexity. 60 minutes spent as patient more than 50% time spent on direct patient care. Will follow. Later would recommend that the patient have a echocardiogram and a IV Lexiscan Cardiolite stress test. Would get the echocardiogram with the patient's heart rate is controlled. Would recommend the patient have IV Lexiscan Cardiolite which can be done as an outpatient. Medical decision making is of high complexity. Discussed with the patient and the patient's . Will follow
[2019-11-28] MEDS: ATORVASTATIN CALCIUM 20 MG TABLET PO SCH (22:03)
[2019-11-29] MEDS: PANTOPRAZOLE SODIUM 40 MG TABLET.DR PO SCH (05:46)
[2019-11-29 06:53] LABS: HEMATOCRIT 27.9 % (36.0-47.0); HEMOGLOBIN 9.5 g/dL (12.0-15.5); MEAN CORPUSCULAR HEMOGLOBIN 30.5 pg (27.0-33.4); MEAN CORPUSCULAR HGB CONC 34.1 g/dL (32.0-36.0); MEAN CORPUSCULAR VOLUME 89 fl (80-97); RED BLOOD COUNT 3.12 10^6/uL (3.72-5.28); RED CELL DISTRIBUTION WIDTH 14.2 % (11.5-14.0); WHITE BLOOD COUNT 2.6 10^3/uL (4.0-10.5)
[2019-11-29 07:10] LABS: ANION GAP 8 (5-19); BLOOD UREA NITROGEN 52 mg/dL (7-20); CARBON DIOXIDE 18 mmol/L (22-30); CHLORIDE 113 mmol/L (98-107); GLUCOSE 71 mg/dL (75-110); POTASSIUM 4.9 mmol/L (3.6-5.0)
[2019-11-29 07:18] LABS: PLATELET COUNT 52 10^3/uL (150-450)
[2019-11-29 07:22] LABS: CALCIUM 6.8 mg/dL (8.4-10.2)
--- NOTE | 2019-11-29 08:24 | PDOC PROGRESS REPORT ---
Subjective Progress Note for:: 11/29/19 Subjective:: Patient is doing better this morning, eating better. Counts are better. Asked nursing to make sure she could walk up and down the meeks. If needed physical therapy will be ordered. Patient will need walker. Reason For Visit: SEVERE SEPSIS WITH SEPTIC SHOCK,RENAL FAILURE, Physical Exam Vital Signs: Temp Pulse Resp BP Pulse Ox 98.0 F 125 H 16 107/50 L 98 11/29/19 03:39 11/29/19 07:00 11/29/19 03:39 11/29/19 03:39 11/29/19 03:39 Intake & Output 11/28/19 11/29/19 11/30/19 06:59 06:59 06:59 Intake Total 1480 Balance 148 Weight 81.2 kg 94.4 kg General appearance: PRESENT: no acute distress, well-developed, well-nourished Head exam: PRESENT: atraumatic, normocephalic Eye exam: PRESENT: conjunctiva pink, EOMI, PERRLA. ABSENT: scleral icterus Ear exam: PRESENT: normal external ear exam Mouth exam: PRESENT: moist, tongue midline Neck exam: ABSENT: carotid bruit, JVD, lymphadenopathy, thyromegaly Respiratory exam: PRESENT: clear to auscultation paloma. ABSENT: rales, rhonchi, wheezes Cardiovascular exam: PRESENT: RRR. ABSENT: diastolic murmur, rubs, systolic murmur Pulses: PRESENT: normal dorsalis pedis pul Vascular exam: PRESENT: normal capillary refill GI/Abdominal exam: PRESENT: normal bowel sounds, soft. ABSENT: distended, guarding, mass, organolmegaly, rebound, tenderness Rectal exam: PRESENT: deferred Extremities exam: PRESENT: full ROM. ABSENT: calf tenderness, clubbing, pedal edema Neurological exam: PRESENT: alert, awake, oriented to person, oriented to place, oriented to time, oriented to situation, CN II-XII grossly intact. ABSENT: motor sensory deficit Psychiatric exam: PRESENT: appropriate affect, normal mood. ABSENT: homicidal ideation, suicidal ideation Skin exam: PRESENT: dry, intact, warm. ABSENT: cyanosis, rash Results Laboratory Results: 11/29/19 05:50 11/29/19 05:50 11/29/19 11/29/19 05:50 05:50 WBC 2.6 L RBC 3.12 L Hgb 9.5 L Hct 27.9 L MCV 89 MCH 30.5 MCHC 34.1 RDW 14.2 H Plt Count 52 L Sodium 139.0 Potassium 4.9 Chloride 113 H Carbon Dioxide 18 L Anion Gap 8 BUN 52 H Creatinine 2.82 H Est GFR ( Amer) 20 L Glucose 71 L Calcium 6.8 L* Magnesium 2.4 H 11/26/19 16:53 Clean Catch Midstream Urine Culture - Final NO GROWTH 2 DAYS 11/26/19 11/26/19 11/27/19 23:48 23:48 05:30 Creatine Kinase 216 H 481 H CK-MB (CK-2) 1.71 Troponin I 0.023 11/27/19 11/27/19 11/27/19 05:30 12:45 12:45 Creatine Kinase 802 H CK-MB (CK-2) 4.04 5.43 H Troponin I 0.029 0.024 Assessment & Plan - Diagnosis (1) Pancytopenia Is this a current diagnosis for this admission?: Yes Plan: Chemotherapy-induced, improving, will follow. Would follow for another 24 hours to make sure platelet count continues to uptrend, by tomorrow if things are better and patient is getting up and around well, eating well and kidney function is as stable as possible, she could potentially be discharged. She will need follow-up with [facility] in 1 week. If she does not follow-up with [facility] in 1 week she needs to follow-up in our office for a CBC. (2) Endometrial cancer Is this a current diagnosis for this admission?: Yes Plan: Follow-up with [facility] as an outpatient - Time Time Spent with patient: 35 or more minutes
[2019-11-29] MEDS: INSULIN REG, HUMAN 100 UNIT/ML 3 ML VIAL (PYX) SUBCUT SCH ×4 (09:08→22:20)
[2019-11-29] MEDS: DOCUSATE SODIUM 100 MG CAPSULE PO SCH ×2 (09:16→17:23)
[2019-11-29] MEDS: CALCIUM GLUC IN NACL, ISO-OSM 1 GM/50 ML RTUPB IV SCH ×2 (09:16→11:30)
[2019-11-29] MEDS: SODIUM BICARBONATE 650 MG TABLET PO SCH ×2 (09:17→22:03)
[2019-11-29] MEDS: METOPROLOL SUCCINATE 50 MG TAB.SR.24H PO SCH (09:17)
[2019-11-29] MEDS: CALCIUM CARBONATE 600 MG TABLET PO SCH ×2 (09:17→17:23)
[2019-11-29] MEDS: CETIRIZINE 10 MG TABLET PO SCH (09:17)
[2019-11-29] MEDS: CHOLECALCIFEROL (D3) 1,000 UNIT (25 MCG) TABLET PO SCH (09:17)
[2019-11-29] MEDS: MEROPENEM 500 MG in NORMAL SALINE 50 ML IV SCH ×2 (09:20→22:04)
[2019-11-29] MEDS ORDERED: FUROSEMIDE 20 MG TABLET PO SCH (10:00)
[2019-11-29] MEDS ORDERED: NORMAL SALINE 1000 ML 1,000 ML IV PRN (11:42)
--- NOTE | 2019-11-29 11:46 | PDOC CONSULTATION ---
Consultation Consult Date: 11/29/19 Provider Consulted: Cliff WILKERSON Consult reason:: JOSSUE on CKD. History of Present Illness Admission Date/PCP: 11/26/19 23:22 SHAILESH JOHNSON PA-C History of Present Illness: MORGAN ORTEGA is a 79 year old female with a past medical history is significant for diabetes mellitus, hypertension and uterine cancer on chemo - initially diagonsed in 2017 and now relapsed, and possible CKD -3 with base creatinine around 2 ?, was admitted from the heme oncologist office for generalized weakness/pancytopenia/JOSSUE associated with hypocalcemia. She had been just treated as an outpatient with packed red blood cells x2 units earlier this week without substantial improvement. She has been undergoing chemotherapy for endometrial cancer in [facility] - unsure what drugs are being given. She was seen in the emergency room the day before admission and was given IV calcium for hypocalcemia. She was noted to have positive blood cultures from her visit then with gram-negative rods and gram positive cocci (staph species not MSRA). She denies any history of abdominal pains, fever or chills. She had some mild diarrhea and poor intake 2 days prior to her admission. However she admits to the fact that she has been noticing some pedal edema but denied any history of chest pain or shortness of breath. She says edema has been chronic and she has been put on low-dose of diuretics and is still persisting. In the emergency room she was noted to have new onset atrial flutter,Acute on chronic renal failure, mild hyperkalemia, thrombocytopenia, anemia, leukopenia, persistent hypocalcemia, hypermagnesemia and pyuria. Her atrial flutter was well controlled initially but showed signs of increasing in rate and this was associated with a drop in her blood pressure to a systolic of 80. She was treated with an IV fluid bolus and calcium gluconate and was started on meropenem. As of today she feels a whole lot better. Appetite is improving. She denies any history of fever or chills or abdominal pains or dysuria. Her renal numbers are improving but the hypocalcemia persists without any signs of tetany. However her CPK for some reason seems to be rising. Her pancytopenia is also improving but for the WBC which though is steady and with stable hemoglobin. Her chemo is currently on hold. No difficulty in urination. Past Medical History Cardiac Medical History: Reports: Hyperlipidemia - Hypercholesterolemia, Hypertension-primary Denies: Atrial Fibrillation, Coronary Artery Disease, DVT, Myocardial Infarct ion, Pulmonary Embolism Pulmonary Medical History: Reports: Asthma, Pneumonia Denies: Bronchitis, Chronic Obstructive Pulmonary Disease (COPD) EENT Medical History: Denies: Cataracts, Ears - Hearing aids Neurological Medical History: Denies: Hemorrhagic CVA, Ischemic CVA, Seizures Endocrine Medical History: Reports: Diabetes Mellitus Type 2 Denies: Diabetes Mellitus Type 1, Hyperthyroidism, Hypothyroidism Complications of Diabetes: Reports: None Renal/ Medical History: Reports: Chronic Kidney Disease Stage III Denies: Nephrolithiasis Malignancy Medical History: Reports: Other - Uterine cancer: Endometrial car cinoma GI Medical History: Denies: Cirrhosis, Hepatitis, Peptic Ulcer Disease Musculoskeltal Medical History: Reports: Arthritis Denies: Gout Skin Medical History: Denies: Eczema, Psoriasis Psychiatric Medical History: Denies: Alcohol Dependency, Depression, Substance Abuse, Tobacco Dependency Traumatic Medical History: Reports: None Infectious Medical History: Reports: None Past Surgical History Past Surgical History: Reports: Cholecystectomy, Hysterectomy, Vascular Surgery - Port-A-Cath placement, Other - Colonoscopy Social History Lives with: Spouse/Significant other Smoking Status: Never Smoker Electronic Cigarette use?: No Frequency of Alcohol Use: None Hx Recreational Drug Use: No Drugs: None Hx Prescription Drug Abuse: No - Advance Directive Resuscitation Status: Full Code Family History Parental Family History Reviewed: Yes - History of CKD on her mother side-on but no apparent diseases in her own pa Children Family History Reviewed: No Sibling(s) Family History Reviewed.: No Medication/Allergy Home Medications: Aspirin [Aspirin 81 mg Chewable Tablet] 81 mg PO DAILY 12/31/16 Atorvastatin Calcium 20 mg PO DAILY 12/31/16 Cetirizine HCl [Zyrtec] 10 mg PO DAILY 12/31/16 Metoprolol Succinate [Toprol Xl] 50 mg PO DAILY 12/31/16 Ondansetron HCl [Zofran 8 mg Tablet] 8 mg PO Q8HP PRN 12/31/16 B-Complex with Vitamin C [Super B Complex-Vitamin C] 1 tab PO DAILY 11/27/19 Calcium Carbonate [Calcium] 600 mg PO BID 11/27/19 Cholecalciferol (Vitamin D3) [Vitamin D3 1000 Unit Tablet] 2,000 unit PO DAILY 11/27/19 Doxazosin Mesylate [Cardura 2 mg Tablet] 2 mg PO QHS 11/27/19 Dulaglutide [Trulicity] 0.75 mg SQ FR@1000 11/27/19 Fluticasone Propionate [Flonase Nasal Newberry 50 Mcg/Newberry 16 gm] 1 spray NASL DAILY 11/27/19 Furosemide [Lasix 20 mg Tablet] 20 mg PO MOWEFR@1000 11/27/19 Krill/Om-3/Dha/Epa/Phospho/Ast [Maximum Red Krill Tracy-3 Sfgl] 1 cap PO DAILY 11/27/19 Omeprazole 40 mg PO Q6AM 11/27/19 Oxycodone HCl/Acetaminophen [Percocet 5-325 mg Tablet] 1 tab PO Q4HP PRN 11/27/19 Prochlorperazine Maleate [Compazine 5 mg Tablet] 5 mg PO Q6HP PRN 11/27/19 Allergies/Adverse Reactions: levofloxacin [From Levaquin] Allergy (Verified 12/31/16 15:12) Review of Systems Constitutional: PRESENT: anorexia, fatigue, weakness. ABSENT: chills, fever(s), headache(s), night sweats Nose, Mouth, and Throat: ABSENT: headache(s), mouth pain, sore throat Cardiovascular: PRESENT: dyspnea on exertion, edema. ABSENT: chest pain, orthropnea, palpitations Respiratory: ABSENT: dyspnea, hemoptysis Gastrointestinal: PRESENT: diarrhea, nausea. ABSENT: abdominal pain, bloating, coffee ground emesis, constipation, hematemesis, hematochezia, vomiting Genitourinary: ABSENT: dysuria, hematuria Musculoskeletal: ABSENT: deformity, joint swelling Integumentary: ABSENT: diaphoresis, erythema, lesions, pruritus, rash Neurological: ABSENT: convulsions, focal weakness, frequent falls Endocrine: ABSENT: heat intolerance Hematologic/Lymphatic: ABSENT: easy bruising, lymphadenopathy Physical Exam Vital Signs: Temp Pulse Resp BP Pulse Ox 98.0 F 125 H 16 107/50 L 98 11/29/19 03:39 11/29/19 07:00 11/29/19 03:39 11/29/19 03:39 11/29/19 03:39 Intake & Output 11/28/19 11/29/19 11/30/19 06:59 06:59 06:59 Intake Total 1480 50 Balance 1997.66 1480 50 Weight 81.2 kg 94.4 kg General appearance: PRESENT: no acute distress Eye exam: PRESENT: EOMI, PERRLA. ABSENT: scleral icterus Ear exam: PRESENT: normal external ear exam Mouth exam: PRESENT: moist Neck exam: ABSENT: lymphadenopathy, meningismus, tenderness, thyromegaly, tracheal deviation Respiratory exam: PRESENT: clear to auscultation paloma, decreased breath sounds. ABSENT: crackles Cardiovascular exam: PRESENT: +S1, +S2 GI/Abdominal exam: PRESENT: normal bowel sounds, soft. ABSENT: organomegaly, tenderness Extremities exam: PRESENT: +1 edema Neurological exam: PRESENT: alert, awake, oriented to person, oriented to place Psychiatric exam: PRESENT: appropriate affect Skin exam: ABSENT: cyanosis, erythema, mottled, rash Results Laboratory Results: 11/29/19 05:50 11/29/19 05:50 11/29/19 11/29/19 05:50 05:50 WBC 2.6 L RBC 3.12 L Hgb 9.5 L Hct 27.9 L MCV 89 MCH 30.5 MCHC 34.1 RDW 14.2 H Plt Count 52 L Sodium 139.0 Potassium 4.9 Chloride 113 H Carbon Dioxide 18 L Anion Gap 8 BUN 52 H Creatinine 2.82 H Est GFR ( Amer) 20 L Glucose 71 L Calcium 6.8 L* Magnesium 2.4 H 11/26/19 16:53 Clean Catch Midstream Urine Culture - Final NO GROWTH 2 DAYS 11/26/19 11/26/19 11/27/19 23:48 23:48 05:30 Creatine Kinase 216 H 481 H CK-MB (CK-2) 1.71 Troponin I 0.023 11/27/19 11/27/19 11/27/19 05:30 12:45 12:45 Creatine Kinase 802 H CK-MB (CK-2) 4.04 5.43 H Troponin I 0.029 0.024 Assessment & Plan - Diagnosis (1) JOSSUE (acute kidney injury) Plan: Nonoliguric. Multifactorial. Differential diagnosis includes adverse effects of chemo including possible of tumor lysis syndrome/ATN from bacteremia/prerenal. Less possible of obstructive uropathy given the improvement of her renal numbers. Looks like this patient possibly may have diabetic -hypertensive nephropathy/CKD stage IV with her baseline creatinine close to 2 as seen in labs from 2017. She has now come in with acute on chronic kidney disease in the face of relapsing uterine cancer on recent chemo- unsure what drugs are being used. She was having some nausea vomiting and diarrhea possible side effects of the chemo associated with the pancytopenia which obviously did not have any fever or chills. She also had MSSA bacteremia currently on antibiotics. Her renal numbers fortunately improving along with her potassium. Hypocalcemia is persisting which needs to be looked at.She has got some signs of fluid overload and I am going to start her on daily p.o. Lasix . Her increasing CPK is concerning and needs to be looked at. Started on gentle fluids as well. (2) Hypocalcemia Is this a current diagnosis for this admission?: Yes Plan: Currently on replacements. Needs/initiate work-up. No signs and symptoms of tetany. If this is from tumor lysis then I would not be too hectic in my correction.. (3) CKD (chronic kidney disease) stage 4, GFR 15-29 ml/min Is this a current diagnosis for this admission?: Yes Plan: A labs from 2017 shows a creatinine of 1.7. Most likely secondary to diabetic/hypertensive CKD. Monitor. (4) Endometrial cancer Is this a current diagnosis for this admission?: Yes Plan: Diagnosed in 2017 and initially responded well to chemo but now has relapsed and restarted on chemo. Being managed by heme oncologist. (5) Hyperkalemia Is this a current diagnosis for this admission?: Yes Plan: Resolving. (6) Leukopenia Qualifiers: Leukopenia type: unspecified Qualified Code(s): D72.819 - Decreased white blood cell count, unspecified Is this a current diagnosis for this admission?: Yes Plan: Admitted with pancytopenia. Transfused and hemoglobin which looks stable and improving platelets. Leukopenia is stuck in the mid twos. Being managed by heme oncologist. No history of any fever or chills though she is growing MSSE bacteremia and is on antibiotics. (7) Pancytopenia Is this a current diagnosis for this admission?: Yes Plan: As mentioned earlier. (8) Positive blood cultures Is this a current diagnosis for this admission?: Yes Plan: With gram-negative rods and MSSE now on antibiotics. (9) Atrial flutter Qualifiers: Atrial flutter type: unspecified Qualified Code(s): I48.92 - Unspecified atrial flutter Is this a current diagnosis for this admission?: Yes Plan: Currently in sinus.
--- NOTE | 2019-11-29 12:23 | PDOC PROGRESS REPORT ---
Subjective Progress Note for:: 11/29/19 Subjective:: She reports feeling well. She denies any chest pain or abdominal pain Reason For Visit: SEVERE SEPSIS WITH SEPTIC SHOCK,RENAL FAILURE, Physical Exam Vital Signs: Temp Pulse Resp BP Pulse Ox 98.0 F 125 H 16 107/50 L 98 11/29/19 10:00 11/29/19 07:00 11/29/19 03:39 11/29/19 03:39 11/29/19 03:39 Intake & Output 11/28/19 11/29/19 11/30/19 06:59 06:59 06:59 Intake Total 1480 50 Balance 1480 50 Weight 81.2 kg 94.4 kg General appearance: PRESENT: no acute distress, well-developed, well-nourished Head exam: PRESENT: atraumatic, normocephalic Eye exam: PRESENT: conjunctiva pink, EOMI, PERRLA. ABSENT: scleral icterus Ear exam: PRESENT: normal external ear exam Mouth exam: PRESENT: moist, tongue midline Neck exam: ABSENT: carotid bruit, JVD, lymphadenopathy, thyromegaly Respiratory exam: PRESENT: clear to auscultation paloma. ABSENT: rales, rhonchi, wheezes Cardiovascular exam: PRESENT: RRR, +S1, +S2. ABSENT: diastolic murmur, rubs, systolic murmur Pulses: PRESENT: normal dorsalis pedis pul GI/Abdominal exam: PRESENT: normal bowel sounds, soft. ABSENT: distended, guarding, mass, organolmegaly, rebound, tenderness Rectal exam: PRESENT: deferred Extremities exam: PRESENT: full ROM. ABSENT: calf tenderness, clubbing, pedal edema Neurological exam: PRESENT: alert, awake, oriented to person, oriented to place, oriented to time, oriented to situation, CN II-XII grossly intact. ABSENT: motor sensory deficit Psychiatric exam: PRESENT: appropriate affect, normal mood. ABSENT: homicidal ideation, suicidal ideation Skin exam: PRESENT: dry, intact, warm. ABSENT: cyanosis, rash Results Laboratory Results: 11/29/19 05:50 11/29/19 05:50 11/29/19 11/29/19 05:50 05:50 WBC 2.6 L RBC 3.12 L Hgb 9.5 L Hct 27.9 L MCV 89 MCH 30.5 MCHC 34.1 RDW 14.2 H Plt Count 52 L Sodium 139.0 Potassium 4.9 Chloride 113 H Carbon Dioxide 18 L Anion Gap 8 BUN 52 H Creatinine 2.82 H Est GFR ( Amer) 20 L Glucose 71 L Calcium 6.8 L* Magnesium 2.4 H 11/26/19 16:53 Clean Catch Midstream Urine Culture - Final NO GROWTH 2 DAYS 11/26/19 11/26/19 11/27/19 23:48 23:48 05:30 Creatine Kinase 216 H 481 H CK-MB (CK-2) 1.71 Troponin I 0.023 11/27/19 11/27/19 11/27/19 05:30 12:45 12:45 Creatine Kinase 802 H CK-MB (CK-2) 4.04 5.43 H Troponin I 0.029 0.024 Assessment and Plan - Diagnosis (1) CKD (chronic kidney disease) stage 4, GFR 15-29 ml/min Is this a current diagnosis for this admission?: Yes (2) Atrial flutter Qualifiers: Atrial flutter type: unspecified Qualified Code(s): I48.92 - Unspecified atrial flutter Is this a current diagnosis for this admission?: Yes (3) Endometrial cancer Is this a current diagnosis for this admission?: Yes (4) Hyperkalemia Is this a current diagnosis for this admission?: Yes (5) Leukopenia Qualifiers: Leukopenia type: unspecified Qualified Code(s): D72.819 - Decreased white blood cell count, unspecified Is this a current diagnosis for this admission?: Yes (6) Pancytopenia Is this a current diagnosis for this admission?: Yes (7) Hypermagnesemia Is this a current diagnosis for this admission?: Yes (8) Hypocalcemia Is this a current diagnosis for this admission?: Yes - Plan Summary Summary: She has a history of endometrial cancer currently on chemotherapy with the last chemo 1 week ago she is still thrombocytopenic with a platelet count of 31,000 she has been seen by oncology and recommendations noted Her kidney function is improved currently on 3.65 which is right around where he was in October 2019 3.57 10 Patient remains pancytopenic secondary to chemotherapy however platelet count appears to be making a recovery at 37,000 today. Kidney function also improved with her creatinine down to 3.344.27. She remains acidotic and her blood pressure remains somewhat borderline however there are any changes in her mental status. She remains in atrial fibrillation flutter. Blood and urine cultures have been negative and she has remained afebrile. She has been on meropenem since admission on November 26. With negative cultures, been afebrile and no clear-cut evidence of infection I think you probably can discontinue meropenem tomorrow and continue to monitor urinalysis on admission did show 30 WBCs with moderate leukocyte esterase, cultures were negative but at this point after 3 days of IV antibiotics I believe this should be okay. As for her atrial flutter this is controlled with metoprolol. She however is on no anticoagulant due to her high has bled score. Her chads 2 Vasc score is 7. We will follow-up with cardiology recommendations. For calcium may Hypertension Chronic kidney disease stage IV we will continue to monitor kidney function. I will start out from bicarb due to the acidosis 11/28 Blood cultures from November 24 is growing procidentia, enterococcus and Staphylococcus epidermidis as well as Staphylococcus species, unspecified. It appears this was the blood culture that was drawn from the ER a day prior to admission. Subsequent blood cultures done November 25 have been negative. Patient has been on meropenem since November 25 when she received the first dose at 2105. I will order repeat blood cultures for tomorrow November 29. Precise source of infection is unclear and at this point given her immunocompromise s tatus she probably will need a 7 to 10-day course of antibiotics. Her urinalysis did show 30 WBC on initial presentation with negative urine culture. Because of her kidney function I will defer on any CT scan for now but this may be a consideration going forward. As for her atrial flutter she is deemed to be a poor candidate for anticoagulation given her anemia and history of bleeding and high has bled score. Plan is for her to follow-up with Dr. Salazar as outpatient for possible referral for watchman procedure - Time Time Spent with patient: 15-24 minutes Medications reviewed and adjusted accordingly: Yes Anticipated Discharge Disposition: Home, Self Care Anticipated Discharge Timeframe: within 72 hours
--- NOTE | 2019-11-29 13:26 | Progress Note ---
Provider Note Provider Note: CARDIOLOGY PROGRESS NOTE by Dr. Deandra Salazar on 11/29/2019. SUBJECTIVE: The patient remains in atrial flutter with a controlled ventricular response. She denies any chest pain or discomfort. There is no PND orthopnea or leg edema. There is no arrhythmias seen on the monitor. There is no TIA CVA symptoms. PHYSICAL EXAMINATION: The patient is moderately obese in no acute distress Selected Entries 11/29/19 03:39 Temperature 98.0 F Temperature Oral Source Pulse Rate 76 Respiratory 16 Rate Blood Pressure 107/50 L Blood Pressure 69 Mean BP Location Left Wrist BP Position Supine O2 Sat by Pulse 98 Oximetry Oxygen Delivery Room Air Method HEAD: Is atraumatic normocephalic. EYES: Pupils are equal round regular reactive to light accommodation. Extraocular movements are normal. There is some mild conjunctival pallor. There is no scleral icterus. NOSE: There is no deviated nasal septum. There is no inflammation nasal mucous membrane. MOUTH: Mucous membranes of mouth are dry tongue is dry. There is no ulcers or bleeding from the gums. THROAT: There is no redness of the oropharynx. There is no exudates. SKIN: There is no petechia or ecchymosis. There is no skin lesions or skin rashes. NECK: Is supple. There is no JVD. Carotids are equal there is no bruit. There is no lymphadenopathy. There is no goiter. There is no accessory muscle respiration use. LUNGS: Trachea central. Lungs are clear to auscultation percussion. There is no rhonchi rales or wheezing. HEART: S1-S2 is heard. S1 is of variable intensity. There is no S3 gallop. There is no S4 gallop. There is systolic murmur left sternal border and the apex there is no rub. ABDOMEN: Soft. There is no hepatosplenomegaly. Bowel sounds are well heard. EXTREMITIES: Femorals are deep femorals are diminished. Leg pulses are well felt. There is no pedal edema. There is no DVT or cellulitis. There is no calf tenderness. 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 PSYCHIATRIC: The patient judgment insight are intact her a ffect is normal. Labs- All tests 24 hr 11/28/19 11/28/19 11/29/19 16:40 21:31 05:50 WBC 2.6 L RBC 3.12 L Hgb 9.5 L Hct 27.9 L MCV 89 MCH 30.5 MCHC 34.1 RDW 14.2 H Plt Count 52 L Sodium Potassium Chloride Carbon Dioxide Anion Gap BUN Creatinine Est GFR ( Amer) Est GFR (MDRD) Non-Af Glucose POC Glucose 151 H 124 H Uric Acid Calcium Phosphorus Magnesium 11/29/19 11/29/19 11/29/19 05:50 05:50 07:25 WBC RBC Hgb Hct MCV MCH MCHC RDW Plt Count Sodium 139.0 Potassium 4.9 Chloride 113 H Carbon Dioxide 18 L Anion Gap 8 BUN 52 H Creatinine 2.82 H Est GFR ( Amer) 20 L Est GFR (MDRD) Non-Af 16 L Glucose 71 L POC Glucose 90 Uric Acid 10.7 H Calcium 6.8 L* Phosphorus 2.7 Magnesium 2.4 H 11/29/19 11/29/19 11:34 16:17 WBC RBC Hgb Hct MCV MCH MCHC RDW Plt Count Sodium Potassium Chloride Carbon Dioxide Anion Gap BUN Creatinine Est GFR ( Amer) Est GFR (MDRD) Non-Af Glucose POC Glucose 97 118 H Uric Acid Calcium Phosphorus Magnesium MPRESSION/RECOMMENDATION: 1. Recent onset of atrial flutter. At present ventricle response is controlled. Would continue the patient's beta-patrice. Note in spite of the patient's Gulshan vas 2 score which is 5 the patient's has bled score is also very high. Also recent anemia. Hence patient will be high risk for chronic anticoagulation at this point. Will discuss with oncology. THE PATIENT'S GULSHAN 2 VASCULAR SCORE is 7. [2 for age, 1 for female gender, 1 for hypertension, 1 for diabetes mellitus, and 2 history of TIA]. One option is once the patient is stabilized would recommend EP consultation for either atrial flutter ablation or watchman procedure. But even for this she has to stay on anticoagulation for a little while. 2. Anemia: Patient recently transfused with packed RBC units as an outpatient. 3. Hypocalcemia: Replace the patient's calcium. 4. Hypertension: Blood pressure well controlled. 5. Diabetes mellitus type 2 with diabetic nephropathy. Continue antidiabetic medication. 6. Chronic kidney disease stage III: Avoid nephrotoxic drugs. 7. Dehydration. Continue IV fluids 8. Possible sepsis with positive blood cultures for Staphylococcus aureus which is not methicillin-resistant. Continue IV antibiotics. 9. History of uterine cancer: Hematology on consult. Medications reviewed. Medical regimen and management plan discussed with attending provider on the case. Medical decision making is of moderate complexity. 40 minutes spent as patient more than 50% time spent on direct patient care. Will follow. Later would recommend that the patient have a echocardiogram and a IV Lexiscan Cardiolite stress test. Would get the echocardiogram with the patient's heart rate is controlled. Would recommend the patient have IV Lexiscan Cardiolite which can be done as an outpatient. Discussed with the patient and the patient's .
[2019-11-29 13:37] LABS: PHOSPHORUS 2.7 mg/dL (2.5-4.5); URIC ACID 10.7 mg/dL (2.5-7.5)
[2019-11-29] MEDS: ATORVASTATIN CALCIUM 20 MG TABLET PO SCH (22:02)
[2019-11-30] MEDS: ACETAMINOPHEN 325 MG TABLET PO PRN ×2 (05:23→21:55)
[2019-11-30] MEDS: PANTOPRAZOLE SODIUM 40 MG TABLET.DR PO SCH (05:23)
[2019-11-30 06:10] LABS: HEMOGLOBIN 9.5 g/dL (12.0-15.5); MEAN CORPUSCULAR HEMOGLOBIN 30.3 pg (27.0-33.4); MEAN CORPUSCULAR HGB CONC 33.9 g/dL (32.0-36.0); MEAN CORPUSCULAR VOLUME 90 fl (80-97); RED BLOOD COUNT 3.13 10^6/uL (3.72-5.28); WHITE BLOOD COUNT 2.7 10^3/uL (4.0-10.5)
[2019-11-30 06:36] LABS: PLATELET COUNT 76 10^3/uL (150-450)
[2019-11-30 06:38] LABS: ALBUMIN 2.5 g/dL (3.5-5.0); ALKALINE PHOSPHATASE 72 U/L (38-126); ANION GAP 7 (5-19); ASPARTATE AMINO TRANSFERASE 32 U/L (14-36); BILIRUBIN,DIRECT 0.2 mg/dL (0.0-0.4); BILIRUBIN,TOTAL 0.6 mg/dL (0.2-1.3); BLOOD UREA NITROGEN 48 mg/dL (7-20); CALCIUM 7.1 mg/dL (8.4-10.2); CARBON DIOXIDE 20 mmol/L (22-30); CHLORIDE 111 mmol/L (98-107); CREATINE KINASE 249 U/L (30-135); GLUCOSE 103 mg/dL (75-110); PHOSPHORUS 2.8 mg/dL (2.5-4.5); POTASSIUM 5.2 mmol/L (3.6-5.0); TOTAL PROTEIN 5.3 g/dL (6.3-8.2); URIC ACID 10.7 mg/dL (2.5-7.5)
--- NOTE | 2019-11-30 08:10 | PDOC PROGRESS REPORT ---
Subjective Progress Note for:: 11/30/19 Subjective:: Patient states she is feeling better. She is very concerned about her diagnosis of sepsis, as her mother of Sepsis 20 years ago. Nurses report she had tachycardia for about 20 minutes while sitting on the side of the bed. Repeat blood cultures are planned for today. ROS: She states that she is eating well. She denies pain. Reason For Visit: SEVERE SEPSIS WITH SEPTIC SHOCK,RENAL FAILURE, Physical Exam Vital Signs: Temp Pulse Resp BP Pulse Ox 97.9 F 104 H 18 111/62 97 11/30/19 03:42 11/30/19 03:42 11/30/19 03:42 11/30/19 03:42 11/30/19 03:42 Intake & Output 11/29/19 11/30/19 12/01/19 06:59 06:59 06:59 Intake Total 1480 510 Balance 1480 510 Weight 94.4 kg 95.3 kg General appearance: PRESENT: no acute distress, obese Head exam: PRESENT: normocephalic Eye exam: PRESENT: EOMI Respiratory exam: PRESENT: clear to auscultation paloma, unlabored Cardiovascular exam: PRESENT: irregular rhythm, tachycardia GI/Abdominal exam: PRESENT: normal bowel sounds, soft. ABSENT: tenderness Neurological exam: PRESENT: alert, awake, oriented to person, oriented to situation Psychiatric exam: PRESENT: appropriate affect Skin exam: PRESENT: normal color Results Laboratory Results: 11/30/19 05:27 11/30/19 05:27 11/29/19 11/30/19 11/30/19 05:50 05:27 05:27 WBC 2.7 L RBC 3.13 L Hgb 9.5 L Hct 28.0 L MCV 90 MCH 30.3 MCHC 33.9 RDW 14.0 Plt Count 76 L Sodium 138.2 Potassium 5.2 H Chloride 111 H Carbon Dioxide 20 L Anion Gap 7 BUN 48 H Creatinine 2.37 H Est GFR ( Amer) 24 L Glucose 103 Uric Acid 10.7 H 10.7 H Calcium 7.1 L Phosphorus 2.7 2.8 Magnesium 2.4 H Total Bilirubin 0.6 AST 32 Alkaline Phosphatase 72 Total Protein 5.3 L Albumin 2.5 L PTH Intact 11/30/19 05:27 WBC RBC Hgb Hct MCV MCH MCHC RDW Plt Count Sodium Potassium Chloride Carbon Dioxide Anion Gap BUN Creatinine Est GFR ( Amer) Glucose Uric Acid Calcium Phosphorus Magnesium Total Bilirubin AST Alkaline Phosphatase Total Protein Albumin PTH Intact 1002.0 H 11/26/19 11/26/19 11/27/19 23:48 23:48 05:30 Creatine Kinase 216 H 481 H CK-MB (CK-2) 1.71 Troponin I 0.023 11/27/19 11/27/19 11/27/19 05:30 12:45 12:45 Creatine Kinase 802 H CK-MB (CK-2) 4.04 5.43 H Troponin I 0.029 0.024 11/30/19 05:27 Creatine Kinase 249 H CK-MB (CK-2) Troponin I Assessment & Plan - Diagnosis (1) Atrial flutter Qualifiers: Atrial flutter type: unspecified Qualified Code(s): I48.92 - Unspecified atrial flutter Is this a current diagnosis for this admission?: Yes Plan: Dr. Tiffanie daigle. I agree with plans for anticoagulation. Her PLT are >50. Although EGFR is <30, Eliquis should still be safe at full dose. This was discussed with hospitalist. (2) CKD (chronic kidney disease) stage 4, GFR 15-29 ml/min Is this a current diagnosis for this admission?: Yes Plan: Currently stable. (3) Endometrial cancer Is this a current diagnosis for this admission?: Yes Plan: s/p Chemotherapy all treatment on hold. (4) Hyperkalemia Is this a current diagnosis for this admission?: Yes Plan: As per primary team. (6) Pancytopenia Is this a current diagnosis for this admission?: Yes Plan: Improving. This is due to chemo. Her PLT are recovering. No indication for blood transfusion. Currently NOT neutropenic. (7) Severe sepsis with septic shock Is this a current diagnosis for this admission?: Yes Plan: Await repeat blood cultures. Antibiotics per primary team. Would avoid piperacillin or other agents that will affect blood counts. - Time Time Spent with patient: 15-24 minutes - Plan Summary Plan Summary: Patient was discussed with Bisi Diaz.
[2019-11-30] MEDS: INSULIN REG, HUMAN 100 UNIT/ML 3 ML VIAL (PYX) SUBCUT SCH ×4 (09:27→22:02)
[2019-11-30] MEDS: FUROSEMIDE 20 MG TABLET PO SCH (09:32)
[2019-11-30] MEDS: DOCUSATE SODIUM 100 MG CAPSULE PO SCH ×2 (09:33→18:08)
[2019-11-30] MEDS: CETIRIZINE 10 MG TABLET PO SCH (09:33)
[2019-11-30] MEDS: APIXABAN 2.5 MG TABLET PO SCH ×2 (09:33→18:08)
[2019-11-30] MEDS: METOPROLOL SUCCINATE 50 MG TAB.SR.24H PO SCH (09:33)
[2019-11-30] MEDS: CALCIUM CARBONATE 600 MG TABLET PO SCH ×2 (09:33→18:08)
[2019-11-30] MEDS: SODIUM BICARBONATE 650 MG TABLET PO SCH ×2 (09:33→21:55)
[2019-11-30] MEDS: VITAMIN B COMPLEX TABLET PO SCH (09:33)
[2019-11-30] MEDS: CHOLECALCIFEROL (D3) 1,000 UNIT (25 MCG) TABLET PO SCH (09:33)
[2019-11-30] MEDS: MEROPENEM 500 MG in NORMAL SALINE 50 ML IV SCH (09:34)
--- NOTE | 2019-11-30 13:44 | Progress Note ---
Provider Note Provider Note: ID Note- I reviewed the patient's chart, including the H&P and progress notes and the microbiology results. The patient had a positive blood culture from November 24. This culture grew numerous organisms, including coagulase-negative Staph. This likely represents skin contamination. Repeat blood cultures from the next day are no growth so far. Unless the patient is clinically septic, I recommend discontinuing all antibiotics and getting repeat blood cultures off antibiotics. Please contact me if there are questions. Darci Basilio MD Pager: [phone]
--- NOTE | 2019-11-30 16:38 | PDOC PROGRESS REPORT ---
Subjective Progress Note for:: 11/30/19 Subjective:: Patient was seen sitting in her chair in her room. At the time she was feeling better than yesterday. She recently was diagnosed with A-flutter and is going to be placed on elquis for anticoagulation. She denies any chest pain, SOB, n/v/d/c. She also denies fevers or chills. Reason For Visit: SEVERE SEPSIS WITH SEPTIC SHOCK,RENAL FAILURE, Physical Exam Vital Signs: Temp Pulse Resp BP Pulse Ox 98.0 F 87 18 116/75 99 11/30/19 07:32 11/30/19 07:32 11/30/19 07:32 11/30/19 07:32 11/30/19 07:32 Intake & Output 11/29/19 11/30/19 12/01/19 06:59 06:59 06:59 Intake Total 1480 510 Balance 1480 510 Weight 94.4 kg 95.3 kg General appearance: PRESENT: no acute distress, well-developed, well-nourished Mouth exam: PRESENT: moist, neck supple Neck exam: ABSENT: JVD, tracheal deviation Respiratory exam: PRESENT: crackles - basses of the lungs. ABSENT: accessory muscle use, clear to auscultation paloma, rhonchi, wheezes Cardiovascular exam: PRESENT: +S1, +S2 GI/Abdominal exam: PRESENT: normal bowel sounds, soft. ABSENT: organomegaly, tenderness Extremities exam: PRESENT: tenderness - in her calves. ABSENT: pedal edema, +1 edema, +2 edema Neurological exam: PRESENT: alert, awake, oriented to person, oriented to place, oriented to time, oriented to situation Skin exam: PRESENT: dry, intact, warm. ABSENT: cyanosis Results Laboratory Results: 11/30/19 05:27 11/30/19 05:27 11/29/19 11/30/19 11/30/19 05:50 05:27 05:27 WBC 2.7 L RBC 3.13 L Hgb 9.5 L Hct 28.0 L MCV 90 MCH 30.3 MCHC 33.9 RDW 14.0 Plt Count 76 L Sodium 138.2 Potassium 5.2 H Chloride 111 H Carbon Dioxide 20 L Anion Gap 7 BUN 48 H Creatinine 2.37 H Est GFR ( Amer) 24 L Glucose 103 Uric Acid 10.7 H 10.7 H Calcium 7.1 L Phosphorus 2.7 2.8 Magnesium 2.4 H Total Bilirubin 0.6 AST 32 Alkaline Phosphatase 72 Total Protein 5.3 L Albumin 2.5 L PTH Intact 11/30/19 05:27 WBC RBC Hgb Hct MCV MCH MCHC RDW Plt Count Sodium Potassium Chloride Carbon Dioxide Anion Gap BUN Creatinine Est GFR ( Amer) Glucose Uric Acid Calcium Phosphorus Magnesium Total Bilirubin AST Alkaline Phosphatase Total Protein Albumin PTH Intact 1002.0 H 11/26/19 11/26/19 11/27/19 23:48 23:48 05:30 Creatine Kinase 216 H 481 H CK-MB (CK-2) 1.71 Troponin I 0.023 11/27/19 11/27/19 11/27/19 05:30 12:45 12:45 Creatine Kinase 802 H CK-MB (CK-2) 4.04 5.43 H Troponin I 0.029 0.024 11/30/19 05:27 Creatine Kinase 249 H CK-MB (CK-2) Troponin I Assessment & Plan - Diagnosis (1) JOSSUE (acute kidney injury) Plan: nonoliguric, looks to be from combination of ATN, reaction to her chemo medication. Will look to rule out obstructive uropathy with renal ultrasound. At this time she is improving with being on IV fluids and furosemide. Will look to continue medications at current dosages. (2) CKD (chronic kidney disease) stage 4, GFR 15-29 ml/min Is this a current diagnosis for this admission?: Yes Plan: Looks to have a baseline around 2. At this time she is improving and almost to baseline. (3) Atrial flutter Qualifiers: Atrial flutter type: unspecified Qualified Code(s): I48.92 - Unspecified atrial flutter Is this a current diagnosis for this admission?: Yes Plan: Per Dr. Moreno. With current renal function the eliquis does not need to be renal dosed. (4) Hyperkalemia Is this a current diagnosis for this admission?: Yes Plan: Elevated back up a little. Reinforced a low potassium diet. She is already on a low potassium diet order. With the furosemide and IV fluids that should help flush more potassium out. (5) Hypermagnesemia Is this a current diagnosis for this admission?: Yes Plan: improving (6) Hypocalcemia Is this a current diagnosis for this admission?: Yes Plan: improving on current replacements. Corrected calcium should be around 8.3. (7) Endometrial cancer Is this a current diagnosis for this admission?: Yes Plan: Currently being treated by heme-onc. Chemo is apparently on hold for now. (8) Positive blood cultures Is this a current diagnosis for this admission?: Yes Plan: currently on merapenem (9) Leukopenia Qualifiers: Leukopenia type: unspecified Qualified Code(s): D72.819 - Decreased white blood cell count, unspecified Is this a current diagnosis for this admission?: Yes Plan: per heme-onc (10) Thrombocytopenia Is this a current diagnosis for this admission?: Yes Plan: per heme-once
--- NOTE | 2019-11-30 18:47 | Progress Note ---
Provider Note Provider Note: CARDIOLOGY PROGRESS NOTE by Dr. Deandra Salazar on 11/30/2019. SUBJECTIVE: The patient remains in atrial flutter with a controlled ventricular response. She denies any chest pain or discomfort. There is no PND orthopnea or leg edema. There is no arrhythmias seen on the monitor. There is no TIA CVA symptoms. There is no TIA CVA symptoms. I have discussed with oncologist. We both now feel that although the patient is slightly high risk for bleeding complications of chronic anticoagulation heart risk for CVA outweigh the risks of bleeding. Hence we will start the patient on Eliquis 2.5 mg p.o.twice daily. This has been discussed with the patient and patient's the risk of bleeding with anticoagulation has been fully explained. PHYSICAL EXAMINATION: The patient is moderately obese in no acute distress. Selected Entries 11/30/19 07:32 Temperature 98.0 F Temperature Oral Source Pulse Rate 87 Respiratory 18 Rate Blood Pressure 116/75 Blood Pressure 88 Mean BP Location Left Arm BP Position Supine O2 Sat by Pulse 99 Oximetry Oxygen Delivery Room Air Method HEAD: Is atraumatic normocephalic. EYES: Pupils are equal round regular reactive to light accommodation. Extraocular movements are normal. There is some mild conjunctival pallor. There is no scleral icterus. NOSE: There is no deviated nasal septum. There is no inflammation nasal mucous membrane. MOUTH: Mucous membranes of mouth are dry tongue is dry. There is no ulcers or bleeding from the gums. THROAT: There is no redness of the oropharynx. There is no exudates. SKIN: There is no petechia or ecchymosis. There is no skin lesions or skin rashes. NECK: Is supple. There is no JVD. Carotids are equal there is no bruit. There is no lymphadenopathy. There is no goiter. There is no accessory muscle respiration use. LUNGS: Trachea central. Lungs are clear to auscultation percussion. There is no rhonchi rales or wheezing. HEART: S1-S2 is heard. S1 is of variable intensity. There is no S3 gallop. There is no S4 gallop. There is systolic murmur left sternal border and the apex there is no rub. ABDOMEN: Soft. There is no hepatosplenomegaly. Bowel sounds are well heard. EXTREMITIES: Femorals are deep femorals are diminished. Leg pulses are well felt. There is no pedal edema. There is no DVT or cellulitis. There is no calf tenderness. CHERRY PITTER: The patient is conscious awake alert oriented x3 with no focal deficits. PSYCHIATRIC: The patient judgment insight are intact her affect is normal. Labs- All tests 24 hr 11/29/19 11/30/19 11/30/19 21:45 05:27 05:27 WBC 2.7 L RBC 3.13 L Hgb 9.5 L Hct 28.0 L MCV 90 MCH 30.3 MCHC 33.9 RDW 14.0 Plt Count 76 L Sodium 138.2 Potassium 5.2 H Chloride 111 H Carbon Dioxide 20 L Anion Gap 7 BUN 48 H Creatinine 2.37 H Est GFR ( Amer) 24 L Est GFR (MDRD) Non-Af 20 L Glucose 103 POC Glucose 105 Uric Acid 10.7 H Calcium 7.1 L Phosphorus 2.8 Magnesium 2.4 H Total Bilirubin 0.6 Direct Bilirubin 0.2 Neonat Total Bilirubin Not Reportable Neonat Direct Bilirubin Not Reportable Neonat Indirect Bili Not Reportable AST 32 ALT 13 Alkaline Phosphatase 72 Lactate Dehydrogenase 298 H Creatine Kinase 249 H Total Protein 5.3 L Albumin 2.5 L Vitamin D 25-Hydroxy PTH Intact 11/30/19 11/30/19 11/30/19 05:27 05:27 07:27 WBC RBC Hgb Hct MCV MCH MCHC RDW Plt Count Sodium Potassium Chloride Carbon Dioxide Anion Gap BUN Creatinine Est GFR ( Amer) Est GFR (MDRD) Non-Af Glucose POC Glucose 93 Uric Acid Calcium Phosphorus Magnesium Total Bilirubin Direct Bilirubin Neonat Total Bilirubin Neonat Direct Bilirubin Neonat Indirect Bili AST ALT Alkaline Phosphatase Lactate Dehydrogenase Creatine Kinase Total Protein Albumin Vitamin D 25-Hydroxy 26.3 PTH Intact 1002.0 H 11/30/19 11/30/19 11:09 16:29 WBC RBC Hgb Hct MCV MCH MCHC RDW Plt Count Sodium Potassium Chloride Carbon Dioxide Anion Gap BUN Creatinine Est GFR ( Amer) Est GFR (MDRD) Non-Af Glucose POC Glucose 136 H 131 H Uric Acid Calcium Phosphorus Magnesium Total Bilirubin Direct Bilirubin Neonat Total Bilirubin Neonat Direct Bilirubin Neonat Indirect Bili AST ALT Alkaline Phosphatase Lactate Dehydrogenase Creatine Kinase Total Protein Albumin Vitamin D 25-Hydroxy PTH Intact MPRESSION/RECOMMENDATION: 1. Recent onset of atrial flutter. At present ventricular onse is controlled. Would continue the patient's beta-patrice. Discussed with Dr. Turk, primary care md/oncologist. The patient's Gulshan vas risk score is very high for me CVA. In spite of her being slightly high risk than usual after discussions with Dr. Saunders we will feel that the patient would benefit from chronic anticoagulation in view of the fact that the patient is risk for CVA outweigh the risks of bleeding. Hence we will start the patient on Eliquis. Later as an outpatient will refer to EP cardiology to see if the patient can undergo a blation of the atrial flutter focus versus watchman procedure. THE PATIENT'S GULSHAN 2 VASCULAR SCORE is 7. [2 for age, 1 for female gender, 1 for hypertension, 1 for diabetes mellitus, and 2 history of TIA]. One option is once the patient is stabilized would recommend EP consultation for either atrial flutter ablation or watchman procedure. But even for this she has to stay on anticoagulation for a little while. 2. Anemia: Patient recently transfused with packed RBC units as an outpatient. 3. Hypocalcemia: Replace the patient's calcium. 4. Hypertension: Blood pressure well controlled. 5. Diabetes mellitus type 2 with diabetic nephropathy. Continue antidiabetic medication. 6. Chronic kidney disease stage III: Avoid nephrotoxic drugs. 7. Dehydration. Continue IV fluids 8. Possible sepsis with positive blood cultures for Staphylococcus aureus which is not methicillin-resistant. Continue IV antibiotics. 9. History of uterine cancer: Hematology on consult. Medications reviewed. Medical regimen and management plan discussed with attending provider on the case. Medical decision making is of high complexity, due to the fact that the patient is on anticoagulation therapy was discussed and the patient started on it.. 40 minutes spent as patient more than 50% time spent on direct patient care. Will follow. Later would recommend that the patient have a echocardiogram and a IV Lexiscan Cardiolite stress test. Would get the echocardiogram with the patient's heart rate is controlled. Would recommend the patient have IV Lexiscan Cardiolite which can be done as an ou tpatient. Discussed with the patient and the patient's .
--- NOTE | 2019-11-30 19:40 | PDOC PROGRESS REPORT ---
Subjective Progress Note for:: 11/30/19 Subjective:: The patient was seen on morning rounds. She is found sitting up to recliner, comfortably, on room air after working with physical therapy. She reports that she is feeling somewhat improved today. She did have multiple questions about atrial fibrillation and recommendations for anticoagulation. She had questions about the watchman versus ablative procedures. I did briefly review these but recommended that she discuss this further with cardiology service when they rounded today. Otherwise, she states she is feeling well and has no new questions or concerns. Looking forward to discharging home in the near future. She denies fever, chills, chest pain, palpitations, dyspnea orthopnea, abdominal pain, nausea vomiting and diarrhea. She reports that her appetite is good. No concerns per nursing. Reason For Visit: SEVERE SEPSIS WITH SEPTIC SHOCK,RENAL FAILURE, Physical Exam Vital Signs: Temp Pulse Resp BP Pulse Ox 98.0 F 77 18 94/67 L 99 11/30/19 16:11 11/30/19 14:00 11/30/19 11:10 11/30/19 11:10 11/30/19 11:10 Intake & Output 11/29/19 11/30/19 12/01/19 06:59 06:59 06:59 Intake Total 1480 510 620 Balance 1480 510 620 Weight 94.4 kg 95.3 kg General appearance: PRESENT: no acute distress, well-developed, well-nourished Head exam: PRESENT: atraumatic, normocephalic Eye exam: PRESENT: conjunctiva pink, EOMI, PERRLA. ABSENT: scleral icterus Mouth exam: PRESENT: moist, tongue midline Respiratory exam: PRESENT: clear to auscultation paloma, symmetrical, unlabored, other - Room air. ABSENT: rales, rhonchi, wheezes Cardiovascular exam: PRESENT: irregular rhythm. ABSENT: diastolic murmur, rubs, systolic murmur Pulses: PRESENT: normal dorsalis pedis pul Vascular exam: PRESENT: normal capillary refill GI/Abdominal exam: PRESENT: normal bowel sounds, soft. ABSENT: distended, guarding, mass, organolmegaly, rebound, tenderness Rectal exam: PRESENT: deferred Extremities exam: PRESENT: full ROM. ABSENT: calf tenderness, clubbing, pedal edema Musculoskeletal exam: PRESENT: ambulatory Neurological exam: PRESENT: alert, awake, oriented to person, oriented to place, oriented to time, oriented to situation, CN II-XII grossly intact. ABSENT: motor sensory deficit Psychiatric exam: PRESENT: appropriate affect, normal mood. ABSENT: homicidal ideation, suicidal ideation Skin exam: PRESENT: dry, intact, warm. ABSENT: cyanosis, rash Results Laboratory Results: 11/30/19 05:27 11/30/19 05:27 11/30/19 11/30/19 11/30/19 05:27 05:27 05:27 WBC 2.7 L RBC 3.13 L Hgb 9.5 L Hct 28.0 L MCV 90 MCH 30.3 MCHC 33.9 RDW 14.0 Plt Count 76 L Sodium 138.2 Potassium 5.2 H Chloride 111 H Carbon Dioxide 20 L Anion Gap 7 BUN 48 H Creatinine 2.37 H Est GFR ( Amer) 24 L Glucose 103 Uric Acid 10.7 H Calcium 7.1 L Phosphorus 2.8 Magnesium 2.4 H Total Bilirubin 0.6 AST 32 Alkaline Phosphatase 72 Total Protein 5.3 L Albumin 2.5 L PTH Intact 1002.0 H 11/26/19 11/26/19 11/27/19 23:48 23:48 05:30 Creatine Kinase 216 H 481 H CK-MB (CK-2) 1.71 Troponin I 0.023 11/27/19 11/27/19 11/27/19 05:30 12:45 12:45 Creatine Kinase 802 H CK-MB (CK-2) 4.04 5.43 H Troponin I 0.029 0.024 11/30/19 05:27 Creatine Kinase 249 H CK-MB (CK-2) Troponin I Assessment and Plan - Diagnosis (1) Atrial flutter Qualifiers: Atrial flutter type: unspecified Qualified Code(s): I48.92 - Unspecified atrial flutter Is this a current diagnosis for this admission?: Yes Plan: Currently rate controlled at rest but with tachycardia with minimal activity. Cardiology is consulted. Per Dr. Moreno's notes, recommends anticoagulation at this time with outpatient follow-up for EP consultation (ablation versus watchman procedure). Discussed with Dr. Hutton today; advises to start Eliquis 5 mg twice daily. We will continue Toprol-XL 50 mg daily. Remaining management per cardiology service. (2) CKD (chronic kidney disease) stage 4, GFR 15-29 ml/min Is this a current diagnosis for this admission?: Yes Plan: Acute worsening on CKD is improved. Cr 4.27-> 2.37. Baseline around 2. Nephrology service is consulted. Continue to optimize cardiac output. Avoid nephrotoxic medications; renally dose where appropriate. Continue IV fluids and furosemide per nephrology service. Continue home dose calcium carbonate. Continue sodium bicarb. Follow-up chemistry. (3) Endometrial cancer Is this a current diagnosis for this admission?: Yes Plan: Oncology service is consulted; management per their expertise. All chemotherapy treatments currently on hold. (4) Hyperkalemia Is this a current diagnosis for this admission?: Yes Plan: Recurrent. Continue IV fluids and furosemide. Nephrology is consulted; have reinforced low potassium diet. Consider Veltassa or Lactulose. Patient is having regular bowel movements. (5) Hypermagnesemia Is this a current diagnosis for this admission?: Yes Plan: Persistently elevated. Gradually improving. Continue IV fluids. Periodic follow-up. (6) Hypocalcemia Is this a current diagnosis for this admission?: Yes Plan: Improved. Corrected Ca is 8.3 Continue oral replacement. Nephrology is consulted. (7) Pancytopenia Is this a current diagnosis for this admission?: Yes Plan: Overall stable. Due to chemotherapy Oncology service is consulted; chemotherapy currently on hold. Discussed w/ Dr. Hutton; no need for replacement (8) Positive blood cultures Is this a current diagnosis for this admission?: Yes Plan: Disease was consulted; I reviewed Dr. Basilio's notes. He advises numerous organisms, including coag negative staph, likely represent skin contamination. Repeat blood cultures from the following day have no growth so far. As the patient does not have clinical signs of sepsis, he recommends discontinuing antibiotics and repeating cultures while off antibiotics. Meropenem is discontinued. We will repeat blood cultures in the morning. - Time Time Spent with patient: 35 or more minutes Medications reviewed and adjusted accordingly: Yes Anticipated Discharge Disposition: Home, Self Care Anticipated Discharge Timeframe: undetermined
[2019-11-30] MEDS: ATORVASTATIN CALCIUM 20 MG TABLET PO SCH (21:55)
[2019-12-01] MEDS: PANTOPRAZOLE SODIUM 40 MG TABLET.DR PO SCH (05:51)
[2019-12-01 06:24] LABS: HEMATOCRIT 29.8 % (36.0-47.0); HEMOGLOBIN 10.2 g/dL (12.0-15.5); MEAN CORPUSCULAR HEMOGLOBIN 30.4 pg (27.0-33.4); MEAN CORPUSCULAR HGB CONC 34.1 g/dL (32.0-36.0); MEAN CORPUSCULAR VOLUME 89 fl (80-97); PLATELET COUNT 121 10^3/uL (150-450); RED BLOOD COUNT 3.35 10^6/uL (3.72-5.28); RED CELL DISTRIBUTION WIDTH 14.2 % (11.5-14.0); WHITE BLOOD COUNT 2.5 10^3/uL (4.0-10.5)
[2019-12-01 06:43] LABS: ANION GAP 7 (5-19); BLOOD UREA NITROGEN 40 mg/dL (7-20); CARBON DIOXIDE 20 mmol/L (22-30); CHLORIDE 113 mmol/L (98-107); GLUCOSE 85 mg/dL (75-110)
[2019-12-01 07:01] LABS: CALCIUM 6.9 mg/dL (8.4-10.2)
--- NOTE | 2019-12-01 08:09 | PDOC PROGRESS REPORT ---
Subjective Progress Note for:: 12/01/19 Subjective:: Patient states that she is feeling much better. She was able to walk in the me[place] and feels strong enough to go home. She is still worried about the infection and about her kidneys. ROS: She denies dyspnea, chest pain, constipation. Reason For Visit: SEVERE SEPSIS WITH SEPTIC SHOCK,RENAL FAILURE, Physical Exam Vital Signs: Temp Pulse Resp BP Pulse Ox 97.6 F 77 18 114/45 L 98 12/01/19 03:16 12/01/19 03:16 12/01/19 03:16 12/01/19 03:16 12/01/19 03:16 Intake & Output 11/30/19 12/01/19 12/02/19 06:59 06:59 06:59 Intake Total 510 1326 Output Total 350 Balance 510 976 Weight 95.3 kg 94.8 kg General appearance: PRESENT: no acute distress, well-developed, well-nourished Head exam: PRESENT: normocephalic Eye exam: PRESENT: EOMI Respiratory exam: PRESENT: unlabored Extremities exam: ABSENT: pedal edema Neurological exam: PRESENT: alert, awake, oriented to person, oriented to place, oriented to time, oriented to situation Psychiatric exam: PRESENT: appropriate affect Skin exam: PRESENT: normal color Results Laboratory Results: 12/01/19 05:56 12/01/19 05:56 12/01/19 12/01/19 05:56 05:56 WBC 2.5 L RBC 3.35 L Hgb 10.2 L Hct 29.8 L MCV 89 MCH 30.4 MCHC 34.1 RDW 14.2 H Plt Count 121 L Sodium 139.9 Potassium 5.0 Chloride 113 H Carbon Dioxide 20 L Anion Gap 7 BUN 40 H Creatinine 1.84 H Est GFR ( Amer) 32 L Glucose 85 Calcium 6.9 L* 11/26/19 11/26/19 11/27/19 23:48 23:48 05:30 Creatine Kinase 216 H 481 H CK-MB (CK-2) 1.71 Troponin I 0.023 11/27/19 11/27/19 11/27/19 05:30 12:45 12:45 Creatine Kinase 802 H CK-MB (CK-2) 4.04 5.43 H Troponin I 0.029 0.024 11/30/19 05:27 Creatine Kinase 249 H CK-MB (CK-2) Troponin I Assessment & Plan - Diagnosis (1) Atrial flutter Qualifiers: Atrial flutter type: unspecified Qualified Code(s): I48.92 - Unspecified atrial flutter Is this a current diagnosis for this admission?: Yes (2) CKD (chronic kidney disease) stage 4, GFR 15-29 ml/min Is this a current diagnosis for this admission?: Yes Plan: Her Cr is much better today. (3) Endometrial cancer Is this a current diagnosis for this admission?: Yes Plan: Her blood counts after chemo are recovering nicely. (4) Hyperkalemia Is this a current diagnosis for this admission?: Yes (5) Hypocalcemia Is this a current diagnosis for this admission?: Yes Plan: Still a concern. She has been receiving PO and IV calcium. I would like to see her Ca a bit closer to normal prior to discharge. (6) Pancytopenia Is this a current diagnosis for this admission?: Yes (7) Severe sepsis with septic shock Is this a current diagnosis for this admission?: Yes Plan: repeat blood cultures are NGTD. Continues antibiotics. - Time Time Spent with patient: 15-24 minutes - Plan Summary Plan Summary: Other than the continued hypocalcemia, I am in agreement with her desire for discharge and will be happy to follow her as outpatient. Please call me with any concerns.
[2019-12-01] MEDS: INSULIN REG, HUMAN 100 UNIT/ML 3 ML VIAL (PYX) SUBCUT SCH ×4 (08:28→21:59)
--- NOTE | 2019-12-01 09:49 | RADIOLOGY REPORT (SQ) ---
EXAM DESCRIPTION: U/S RETROPERITON (RENAL/AORTA) IMAGES COMPLETED DATE/TIME: 12/01/2019 6:31 am REASON FOR STUDY: JOSSUE, rule out obstructive uropathy COMPARISON: None. TECHNIQUE: Dynamic and static grayscale images acquired of the kidneys and bladder and recorded on P ACS. Additional selected color Doppler and spectral images recorded. LIMITATIONS: None. FINDINGS: RIGHT KIDNEY: Normal size. Normal echogenicity. No solid or suspicious masses. No hydronep hrosis. No calcifications. LEFT KIDNEY: Normal size. Normal echogenicity. No solid or suspicious masses. No hydronephrosis. No calcifications. BLADDER: No masses. OTHER FINDINGS: Reported left ureteral stents not visualized due to limited acoustic window. IMPRESSION: No evidence of obstructive uropathy. TECHNICAL DOCUMENTATION: JOB ID: [id number] 2010 [employer]- All Rights Reserved Reading location - IP/workstation name: [email or web address]
[2019-12-01] MEDS: CALCIUM CARBONATE 600 MG TABLET PO SCH ×2 (10:13→17:30)
[2019-12-01] MEDS: VITAMIN B COMPLEX TABLET PO SCH (10:13)
[2019-12-01] MEDS: CETIRIZINE 10 MG TABLET PO SCH (10:13)
[2019-12-01] MEDS: DOCUSATE SODIUM 100 MG CAPSULE PO SCH ×2 (10:13→17:31)
[2019-12-01] MEDS: CALCITRIOL 0.25 MCG CAPSULE PO SCH (10:13)
[2019-12-01] MEDS: APIXABAN 2.5 MG TABLET PO SCH ×2 (10:13→17:30)
[2019-12-01] MEDS: FUROSEMIDE 20 MG TABLET PO SCH (10:14)
[2019-12-01] MEDS: SODIUM BICARBONATE 650 MG TABLET PO SCH ×2 (10:14→22:08)
[2019-12-01] MEDS: CHOLECALCIFEROL (D3) 1,000 UNIT (25 MCG) TABLET PO SCH (10:14)
[2019-12-01] MEDS: METOPROLOL SUCCINATE 50 MG TAB.SR.24H PO SCH (10:16)
--- NOTE | 2019-12-01 11:38 | Progress Note ---
Provider Note Provider Note: CARDIOLOGY PROGRESS NOTE by Dr. Deandra Salazar on 12/01/2019. SUBJECTIVE: The patient remains in atrial flutter with a controlled ventricular response. She denies any chest pain or discomfort. There is no PND orthopnea or leg edema. There is no arrhythmias seen on the monitor. There is no TIA CVA symptoms. She is tolerating Eliquis without any bleeding complications. There is no ventricular arrhythmias seen on the monitor. PHYSICAL EXAMINATION: The patient is moderately obese in no acute distress. HEAD: Is atraumatic normocephalic. EYES: Pupils are equal round regular reactive to light accommodation. Extraocular movements are normal. Selected Entries 12/01/19 07:29 Temperature 97.7 F Temperature Oral Source Pulse Rate 79 Respiratory 15 Rate Blood Pressure 99/50 L Blood Pressure 66 Mean BP Location Left Arm BP Position Supine O2 Sat by Pulse 100 Oximetry Oxygen Delivery Room Air Method There is some mild conjunctival pallor. There is no scleral icterus. NOSE: There is no deviated nasal septum. There is no inflammation nasal mucous membrane. MOUTH: Mucous membranes of mouth are dry tongue is dry. There is no ulcers or bleeding from the gums. THROAT: There is no redness of the oropharynx. There is no exudates. SKIN: There is no petechia or ecchymosis. There is no skin lesions or skin rashes. NECK: Is supple. There is no JVD. Carotids are equal there is no bruit. There is no lymphadenopathy. There is no goiter. There is no accessory muscle respiration use. LUNGS: Trachea central. Lungs are clear to auscultation percussion. There is no rhonchi rales or wheezing. HEART: S1-S2 is heard. S1 is of variable intensity. There is no S3 gallop. There is no S4 gallop. There is systolic murmur left sternal border and the apex there is no rub. ABDOMEN: Soft. There is no hepatosplenomegaly. Bowel sounds are well heard. EXTREMITIES: Femorals are deep femorals are diminished. Leg pulses are well felt. There is no pedal edema. There is no DVT or cellulitis. There is no calf tenderness. MANGLE OPERATOR GARMENTS: The patient is conscious awake alert oriented x3 with no focal deficits. PSYCHIATRIC: The patient judgment insight are intact her affect is normal. Labs- All tests 24 hr 10/08/1311/30/19 12/01/19 16:29 21:50 05:56 WBC 2.5 L RBC 3.35 L Hgb 10.2 L Hct 29.8 L MCV 89 MCH 30.4 MCHC 34.1 RDW 14.2 H Plt Count 121 L Sodium Potassium Chloride Carbon Dioxide Anion Gap BUN Creatinine Est GFR ( Amer) Est GFR (MDRD) Non-Af Glucose POC Glucose 131 H 130 H Calcium Albumin 12/01/19 12/01/19 12/01/19 05:56 05:56 07:31 WBC RBC Hgb Hct MCV MCH MCHC RDW Plt Count Sodium 139.9 Potassium 5.0 Chloride 113 H Carbon Dioxide 20 L Anion Gap 7 BUN 40 H Creatinine 1.84 H Est GFR ( Amer) 32 L Est GFR (MDRD) Non-Af 27 L Glucose 85 POC Glucose 83 Calcium 6.9 L* Albumin 2.8 L 12/01/19 11:15 WBC RBC Hgb Hct MCV MCH MCHC RDW Plt Count Sodium Potassium Chloride Carbon Dioxide Anion Gap BUN Creatinine Est GFR ( Amer) Est GFR (MDRD) Non-Af Glucose POC Glucose 82 Calcium Albumin Renal Ultrasound 12/01/19 00:00 IMPRESSION: No evidence of obstructive uropathy. IMPRESSION/RECOMMENDATION: 1. Recent onset of atrial flutter. At present ventricular onse is controlled. Would continue the patient's beta-patrice. Discussed with Dr. Turk, magnetic resonance technologist/oncologist. The patient's Gulshan vas risk score is very high for me CVA. In spite of her being slightly high risk than usual after discussions with Dr. Saunders we will feel that the patient would benefit from chronic anticoagulation in view of the fact that the patient is risk for CVA outweigh the risks of bleeding. Hence we will start the patient on Eliquis. Later as an outpatient will refer to EP cardiology to see if the patient can undergo ablation of the atrial flutter focus versus watchman procedure. THE PATIENT'S GULSHAN 2 VASCULAR SCORE is 7. [2 for age, 1 for female gender, 1 for hypertension, 1 for diabetes mellitus, and 2 history of TIA]. One option is once the patient is stabilized would recommend EP consultation for either atrial flutter ablation or watchman procedure. But even for this she has to stay on anticoagulation for a little while. 2. Anemia: Patient recently transfused with packed RBC units as an outpatient. 3. Hypocalcemia: Replace the patient's calcium. 4. Hypertension: Blood pressure well controlled. 5. Diabetes mellitus type 2 with diabetic nephropathy. Continue antidiabetic medication. 6. Chronic kidney disease stage III: Avoid nephrotoxic drugs. 7. Dehydration. Continue IV fluids 8. Possible sepsis with positive blood cultures for Staphylococcus aureus which is not methicillin-resistant. Continue IV antibiotics. 9. History of uterine cancer: Hematology on consult. Medications reviewed. Medical regimen and management plan discussed with the attending provider on the case. Medical decision making is of moderate complexity. 40-minute spent as patient more than 50% time spent in direct patient care. Will follow
--- NOTE | 2019-12-01 13:20 | PDOC PROGRESS REPORT ---
Subjective Progress Note for:: 12/01/19 Subjective:: Patient was seen sitting in her chair in her room with her by her side. She continues to feel better. She denies any chest pain, SOB, n/v/d/c. She also denies fevers or chills. Urine output continues to be good. Reason For Visit: SEVERE SEPSIS WITH SEPTIC SHOCK,RENAL FAILURE, Physical Exam Vital Signs: Temp Pulse Resp BP Pulse Ox 97.6 F 79 15 99/50 L 100 12/01/19 09:01 12/01/19 07:29 12/01/19 07:29 12/01/19 07:29 12/01/19 07:29 Intake & Output 11/30/19 12/01/19 12/02/19 06:59 06:59 06:59 Intake Total 510 1326 Output Total 350 Balance 510 976 Weight 95.3 kg 94.8 kg General appearance: PRESENT: no acute distress, well-developed, well-nourished Mouth exam: PRESENT: moist, neck supple Neck exam: ABSENT: JVD, tracheal deviation Respiratory exam: PRESENT: clear to auscultation paloma. ABSENT: accessory muscle use, crackles, wheezes Cardiovascular exam: PRESENT: +S1, +S2 GI/Abdominal exam: PRESENT: normal bowel sounds, soft. ABSENT: organomegaly, tenderness Neurological exam: PRESENT: alert, awake, oriented to person, oriented to place, oriented to time, oriented to situation Skin exam: PRESENT: dry, intact, warm Results Laboratory Results: 12/01/19 05:56 12/01/19 05:56 12/01/19 12/01/19 12/01/19 05:56 05:56 05:56 WBC 2.5 L RBC 3.35 L Hgb 10.2 L Hct 29.8 L MCV 89 MCH 30.4 MCHC 34.1 RDW 14.2 H Plt Count 121 L Sodium 139.9 Potassium 5.0 Chloride 113 H Carbon Dioxide 20 L Anion Gap 7 BUN 40 H Creatinine 1.84 H Est GFR ( Amer) 32 L Glucose 85 Calcium 6.9 L* Albumin 2.8 L 11/26/19 11/26/19 11/27/19 23:48 23:48 05:30 Creatine Kinase 216 H 481 H CK-MB (CK-2) 1.71 Troponin I 0.023 11/27/19 11/27/19 11/27/19 05:30 12:45 12:45 Creatine Kinase 802 H CK-MB (CK-2) 4.04 5.43 H Troponin I 0.029 0.024 11/30/19 05:27 Creatine Kinase 249 H CK-MB (CK-2) Troponin I Impressions: Renal Ultrasound 12/01/19 00:00 IMPRESSION: No evidence of obstructive uropathy. Assessment & Plan - Diagnosis (1) JOSSUE (acute kidney injury) Plan: Looks to be at baseline with no evidence of obstructive nephropathy. At this time she is stable from nephrology's standpoint. Recommend follow up with Dr. Anderson her pbx teacher in 7 to 10 days. Nephrology is signing off at this time. (2) CKD (chronic kidney disease) stage 4, GFR 15-29 ml/min Is this a current diagnosis for this admission?: Yes Plan: Looks to have a baseline around 1.8 to 2. (3) Atrial flutter Qualifiers: Atrial flutter type: unspecified Qualified Code(s): I48.92 - Unspecified atrial flutter Is this a current diagnosis for this admission?: Yes Plan: Per Dr. Moreno. With current renal function the eliquis does not need to be renal dosed. (4) Hyperkalemia Is this a current diagnosis for this admission?: Yes Plan: Back under control with dietary change. (5) Hypermagnesemia Is this a current diagnosis for this admission?: Yes Plan: improving (6) Hypocalcemia Is this a current diagnosis for this admission?: Yes Plan: improving on current replacements. Added calcitriol yesterday afternoon. Recommend discharging on calcium supplements and calcitriol (7) Endometrial cancer Is this a current diagnosis for this admission?: Yes Plan: Currently being treated by heme-onc. Chemo is apparently on hold for now. (8) Leukopenia Qualifiers: Leukopenia type: unspecified Qualified Code(s): D72.819 - Decreased white blood cell count, unspecified Is this a current diagnosis for this admission?: Yes (9) Thrombocytopenia Is this a current diagnosis for this admission?: Yes
--- NOTE | 2019-12-01 16:59 | PDOC PROGRESS REPORT ---
Subjective Progress Note for:: 12/01/19 Subjective:: The patient was seen on afternoon rounds. She is found sitting up to recliner, comfortably, on room air eating her lunch. She reports that she is feeling improved today; hopeful to go home soon. Otherwise, she has no new questions or concerns. She denies fever, chills, chest pain, palpitations, dyspnea orthopnea, abdominal pain, nausea vomiting and diarrhea. She reports that her appetite is good. No concerns per nursing. Reason For Visit: SEVERE SEPSIS WITH SEPTIC SHOCK,RENAL FAILURE, Physical Exam Vital Signs: Temp Pulse Resp BP Pulse Ox 97.6 F 81 15 99/50 L 100 12/01/19 09:01 12/01/19 14:00 12/01/19 07:29 12/01/19 07:29 12/01/19 07:29 Intake & Output 11/30/19 12/01/19 12/02/19 06:59 06:59 06:59 Intake Total 510 1326 Output Total 350 Balance 510 976 Weight 95.3 kg 94.8 kg General appearance: PRESENT: no acute distress, cooperative, obese, well- developed, well-nourished Head exam: PRESENT: atraumatic, normocephalic Eye exam: PRESENT: conjunctiva pink, EOMI, PERRLA. ABSENT: scleral icterus Mouth exam: PRESENT: moist, tongue midline Respiratory exam: PRESENT: clear to auscultation paloma, symmetrical, unlabored, other - room air. ABSENT: rales, rhonchi, wheezes Cardiovascular exam: PRESENT: irregular rhythm. ABSENT: diastolic murmur, rubs, systolic murmur Vascular exam: PRESENT: normal capillary refill GI/Abdominal exam: PRESENT: normal bowel sounds, soft. ABSENT: distended, guarding, mass, organolmegaly, rebound, tenderness Rectal exam: PRESENT: deferred Extremities exam: PRESENT: full ROM. ABSENT: calf tenderness, clubbing, pedal edema Neurological exam: PRESENT: alert, awake, oriented to person, oriented to place, oriented to time, oriented to situation, CN II-XII grossly intact. ABSENT: motor sensory deficit Psychiatric exam: PRESENT: appropriate affect, normal mood. ABSENT: homicidal ideation, suicidal ideation Skin exam: PRESENT: dry, intact, warm. ABSENT: cyanosis, rash Results Laboratory Results: 12/01/19 05:56 12/01/19 05:56 12/01/19 12/01/19 12/01/19 05:56 05:56 05:56 WBC 2.5 L RBC 3.35 L Hgb 10.2 L Hct 29.8 L MCV 89 MCH 30.4 MCHC 34.1 RDW 14.2 H Plt Count 121 L Sodium 139.9 Potassium 5.0 Chloride 113 H Carbon Dioxide 20 L Anion Gap 7 BUN 40 H Creatinine 1.84 H Est GFR ( Amer) 32 L Glucose 85 Calcium 6.9 L* Albumin 2.8 L 11/26/19 11/26/19 11/27/19 23:48 23:48 05:30 Creatine Kinase 216 H 481 H CK-MB (CK-2) 1.71 Troponin I 0.023 11/27/19 11/27/19 11/27/19 05:30 12:45 12:45 Creatine Kinase 802 H CK-MB (CK-2) 4.04 5.43 H Troponin I 0.029 0.024 11/30/19 05:27 Creatine Kinase 249 H CK-MB (CK-2) Troponin I Impressions: Renal Ultrasound 12/01/19 00:00 IMPRESSION: No evidence of obstructive uropathy. Assessment and Plan - Diagnosis (1) Atrial flutter Qualifiers: Atrial flutter type: unspecified Qualified Code(s): I48.92 - Unspecified atrial flutter Is this a current diagnosis for this admission?: Yes Plan: Currently rate controlled at rest but with tachycardia with minimal activity. Cardiology is consulted. Per Dr. Moreno's notes, recommends anticoagulation at this time with outpatient follow-up for EP consultation (ablation versus watchman procedure). Have started Eliquis 5 mg twice daily. We will continue Toprol-XL 50 mg daily. Remaining management per cardiology service. (2) CKD (chronic kidney disease) stage 4, GFR 15-29 ml/min Is this a current diagnosis for this admission?: Yes Plan: Acute worsening on CKD is resolved; at baseline per nephrology. Cr 4.27-> 2.37-> 1.84 Renal ultrasound was benign. Nephrology service was consulted; have now signed off. Recommend follow up with Dr. Anderson in 7-10 days. Continue to optimize cardiac output. Avoid nephrotoxic medications; renally dose where appropriate. Continue home dose calcium carbonate. Continue sodium bicarb. Follow-up chemistry. (3) Endometrial cancer Is this a current diagnosis for this admission?: Yes Plan: Oncology service is consulted; management per their expertise. All chemotherapy treatments currently on hold. (4) Hyperkalemia Is this a current diagnosis for this admission?: Yes Plan: Resolved. Received IV fluids and furosemide. Nephrology was consulted; have reinforced low potassium diet. Consider Veltassa or Lactulose. Patient is having regular bowel movements. (5) Hypermagnesemia Is this a current diagnosis for this admission?: Yes Plan: Persistently elevated. Gradually improving. Continue IV fluids. Periodic follow-up. (6) Hypocalcemia Is this a current diagnosis for this admission?: Yes Plan: Improved. Corrected Ca is 7.9 Continue oral replacement. Continue Calcitriol (7) Pancytopenia Is this a current diagnosis for this admission?: Yes Plan: Overall stable. Due to chemotherapy Oncology service is consulted; chemotherapy currently on hold. Discussed w/ Dr. Hutton; no need for replacement (8) Positive blood cultures Is this a current diagnosis for this admission?: Yes Plan: Infectious Disease was consulted; I reviewed Dr. Basilio's notes. He advises numerous organisms, including coag negative staph, likely represent skin contamination. Repeat blood cultures from the following day have no growth so far. As the patient does not have clinical signs of sepsis, he recommends discontinuing antibiotics and repeating cultures while off antibiotics. Meropenem was discontinued. Repeat blood cultures (11/30) pending. - Time Time Spent with patient: 25-34 minutes Medications reviewed and adjusted accordingly: Yes Anticipated Discharge Disposition: Home, Self Care Anticipated Discharge Timeframe: within 48 hours - pending Blood culture results
[2019-12-01] MEDS: ATORVASTATIN CALCIUM 20 MG TABLET PO SCH (22:08)
[2019-12-02] MEDS ORDERED: METOPROLOL TARTRATE PF/INJ 5 MG/5 ML SDV IV ONE ×2 (01:34→01:40)
[2019-12-02] MEDS: ACETAMINOPHEN 325 MG TABLET PO PRN (01:49)
[2019-12-02] MEDS: PANTOPRAZOLE SODIUM 40 MG TABLET.DR PO SCH (05:50)
[2019-12-02 06:20] LABS: HEMATOCRIT 27.8 % (36.0-47.0); HEMOGLOBIN 9.5 g/dL (12.0-15.5); MEAN CORPUSCULAR HEMOGLOBIN 30.5 pg (27.0-33.4); MEAN CORPUSCULAR HGB CONC 34.3 g/dL (32.0-36.0); MEAN CORPUSCULAR VOLUME 89 fl (80-97); PLATELET COUNT 150 10^3/uL (150-450); RED BLOOD COUNT 3.13 10^6/uL (3.72-5.28); RED CELL DISTRIBUTION WIDTH 13.9 % (11.5-14.0); WHITE BLOOD COUNT 2.2 10^3/uL (4.0-10.5)
[2019-12-02 06:40] LABS: ANION GAP 5 (5-19); BLOOD UREA NITROGEN 34 mg/dL (7-20); CARBON DIOXIDE 22 mmol/L (22-30); CHLORIDE 113 mmol/L (98-107); GLUCOSE 81 mg/dL (75-110)
[2019-12-02 06:49] LABS: CALCIUM 6.5 mg/dL (8.4-10.2)
[2019-12-02] MEDS: INSULIN REG, HUMAN 100 UNIT/ML 3 ML VIAL (PYX) SUBCUT SCH ×4 (07:45→22:00)
[2019-12-02] MEDS: CALCIUM GLUC IN NACL, ISO-OSM 1 GM/50 ML RTUPB IV SCH ×2 (08:45→10:16)
[2019-12-02] MEDS: CHOLECALCIFEROL (D3) 1,000 UNIT (25 MCG) TABLET PO SCH (09:05)
[2019-12-02] MEDS: DOCUSATE SODIUM 100 MG CAPSULE PO SCH ×2 (09:05→17:32)
[2019-12-02] MEDS: SODIUM BICARBONATE 650 MG TABLET PO SCH ×2 (09:05→21:27)
[2019-12-02] MEDS: FUROSEMIDE 20 MG TABLET PO SCH (09:05)
[2019-12-02] MEDS: CALCITRIOL 0.25 MCG CAPSULE PO SCH (09:05)
[2019-12-02] MEDS: CALCIUM CARBONATE 600 MG TABLET PO SCH ×2 (09:05→17:32)
[2019-12-02] MEDS: METOPROLOL SUCCINATE 50 MG TAB.SR.24H PO SCH (09:05)
[2019-12-02] MEDS: APIXABAN 2.5 MG TABLET PO SCH ×2 (09:05→17:32)
[2019-12-02] MEDS: CETIRIZINE 10 MG TABLET PO SCH (09:05)
[2019-12-02] MEDS: VITAMIN B COMPLEX TABLET PO SCH (09:06)
--- NOTE | 2019-12-02 18:08 | PDOC PROGRESS REPORT ---
Subjective Progress Note for:: 12/02/19 Subjective:: The patient was seen on morning rounds. She is found sitting up to recliner, comfortably, on room air eating her lunch. She reports that she is feeling well today; hopeful to go home soon. Did have some palpitations overnight (HR briefly 150s; received IV lopressor). Otherwise, she has no new questions or concerns. She denies fever, chills, chest pain, palpitations, dyspnea orthopnea, abdominal pain, nausea vomiting and diarrhea. She reports that her appetite is good. No concerns per nursing. Reason For Visit: SEVERE SEPSIS WITH SEPTIC SHOCK,RENAL FAILURE, Physical Exam Vital Signs: Temp Pulse Resp BP Pulse Ox 98.1 F 80 18 119/50 L 100 12/02/19 16:30 12/02/19 16:30 12/02/19 16:30 12/02/19 16:30 12/02/19 16:30 Intake & Output 12/01/19 12/02/19 12/03/19 06:59 06:59 06:59 Intake Total 1326 750 240 Output Total 350 550 Balance 976 200 240 Weight 94.8 kg 94.8 kg General appearance: PRESENT: no acute distress, cooperative, well-developed, well-nourished Head exam: PRESENT: atraumatic, normocephalic Eye exam: PRESENT: conjunctiva pink, EOMI, PERRLA. ABSENT: scleral icterus Mouth exam: PRESENT: moist, tongue midline Respiratory exam: PRESENT: clear to auscultation paloma, symmetrical, unlabored, other - room air. ABSENT: rales, rhonchi, wheezes Cardiovascular exam: PRESENT: irregular rhythm. ABSENT: diastolic murmur, rubs, systolic murmur Vascular exam: PRESENT: normal capillary refill Extremities exam: PRESENT: full ROM. ABSENT: calf tenderness, clubbing, pedal edema Neurological exam: PRESENT: alert, awake, oriented to person, oriented to place, oriented to time, oriented to situation, CN II-XII grossly intact. ABSENT: motor sensory deficit Psychiatric exam: PRESENT: appropriate affect, normal mood. ABSENT: homicidal ideation, suicidal ideation Skin exam: PRESENT: dry, intact, warm. ABSENT: cyanosis, rash Results Laboratory Results: 12/02/19 05:50 12/02/19 05:50 12/02/19 12/02/1920 05:50 05:50 05:50 WBC 2.2 L RBC 3.13 L Hgb 9.5 L Hct 27.8 L MCV 89 MCH 30.5 MCHC 34.3 RDW 13.9 Plt Count 150 Sodium 140.4 Potassium 5.0 Chloride 113 H Carbon Dioxide 22 Anion Gap 5 BUN 34 H Creatinine 1.60 H Est GFR ( Amer) 38 L Glucose 81 Calcium 6.5 L* Albumin 2.6 L 11/26/19 18:51 Blood Blood Culture - Final NO GROWTH IN 5 DAYS 11/26/19 16:53 Blood Blood Culture - Final NO GROWTH IN 5 DAYS 11/26/19 11/26/19 11/27/19 23:48 23:48 05:30 Creatine Kinase 216 H 481 H CK-MB (CK-2) 1.71 Troponin I 0.023 11/27/19 11/27/19 11/27/19 05:30 12:45 12:45 Creatine Kinase 802 H CK-MB (CK-2) 4.04 5.43 H Troponin I 0.029 0.024 11/30/19 05:27 Creatine Kinase 249 H CK-MB (CK-2) Troponin I Impressions: Renal Ultrasound 12/01/19 00:00 IMPRESSION: No evidence of obstructive uropathy. Assessment and Plan - Diagnosis (1) Hypocalcemia Is this a current diagnosis for this admission?: Yes Plan: Improved. Corrected Ca is 7.6 Continue oral replacement. IV replacement today per nephrology Continue Calcitriol Follow up chemistry and albumin (2) Atrial flutter Qualifiers: Atrial flutter type: unspecified Qualified Code(s): I48.92 - Unspecified atrial flutter Is this a current diagnosis for this admission?: Yes Plan: Currently rate controlled at rest but with tachycardia with minimal activity. Cardiology is consulted. Per Dr. Moreno's notes, recommends anticoagulation at this time with outpatient follow-up for EP consultation (ablation versus watchman procedure). Have started Eliquis 5 mg twice daily. We will continue Toprol-XL 50 mg daily. Remaining management per cardiology service. (3) CKD (chronic kidney disease) stage 4, GFR 15-29 ml/min Is this a current diagnosis for this admission?: Yes Plan: Acute worsening on CKD is resolved; at baseline per nephrology. Cr 4.27-> 2.37-> 1.84-> 1.60 Renal ultrasound was benign. Nephrology service was consulted; have now signed off. Recommend follow up with Dr. Anderson in 7-10 days. Continue to optimize cardiac output. Avoid nephrotoxic medications; renally dose where appropriate. Continue home dose calcium carbonate. Continue sodium bicarb. Follow-up chemistry. (4) Endometrial cancer Is this a current diagnosis for this admission?: Yes Plan: Oncology service is consulted; management per their expertise. All chemotherapy treatments currently on hold. (5) Hyperkalemia Is this a current diagnosis for this admission?: Yes Plan: Resolved. Received IV fluids and furosemide. Nephrology was consulted; have reinforced low potassium diet. Consider Veltassa or Lactulose. Patient is having regular bowel movements. (6) Hypermagnesemia Is this a current diagnosis for this admission?: Yes Plan: Persistently elevated. Gradually improving. Continue IV fluids. Periodic follow-up. (7) Positive blood cultures Is this a current diagnosis for this admission?: Yes Plan: Infectious Disease was consulted; I reviewed Dr. Basilio's notes. He advises numerous organisms, including coag negative staph, likely represent skin contamination. Repeat blood cultures from the following day have no growth so far. As the patient does not have clinical signs of sepsis, he recommends discontinuing antibiotics and repeating cultures while off antibiotics. Meropenem was discontinued. Repeat blood cultures (11/30) negative at 24 hrs. (8) Pancytopenia Is this a current diagnosis for this admission?: Yes Plan: Overall stable. Due to chemotherapy Oncology service is consulted; chemotherapy currently on hold. Discussed w/ Dr. Hutton; no need for replacement - Time Time Spent with patient: 25-34 minutes Medications reviewed and adjusted accordingly: Yes Anticipated Discharge Disposition: Home, Self Care Anticipated Discharge Timeframe: within 48 hours
--- NOTE | 2019-12-02 19:31 | Progress Note ---
Provider Note Provider Note: CARDIOLOGY PROGRESS NOTE by Dr. Deandra Salazar on 12/02/2019. SUBJECTIVE: The patient remains in atrial flutter with a controlled ventricular response. She denies any chest pain or discomfort. There is no PND orthopnea or leg edema. There is no arrhythmias seen on the monitor. There is no TIA CVA symptoms. She is tolerating Eliquis without any bleeding complications. There is no ventricular arrhythmias seen on the monitor. PHYSICAL EXAMINATION: The patient is moderately obese in no acute distress. Selected Entries 12/02/19 16:30 Temperature 98.1 F Temperature Oral Source Pulse Rate 80 Respiratory 18 Rate Blood Pressure 119/50 L Blood Pressure 73 Mean BP Location Right Arm BP Position Sitting O2 Sat by Pulse 100 Oximetry HEAD: Is atraumatic normocephalic. EYES: Pupils are equal round regular reactive to light accommodation. Extraocular movements are normal. There is no conjunctival pallor. There is no scleral icterus. NOSE: There is no deviated nasal septum. There is no inflammation nasal mucous membrane. MOUTH: Mucous membranes of mouth are dry tongue is dry. There is no ulcers or bleeding from the gums. THROAT: There is no redness of the oropharynx. There is no exudates. SKIN: There is no petechia or ecchymosis. There is no skin lesions or skin rashes. NECK: Is supple. There is no JVD. Carotids are equal there is no bruit. There is no lymphadenopathy. There is no goiter. There is no accessory muscle respiration use. LUNGS: Trachea central. Lungs are clear to auscultation percussion. There is no rhonchi rales or wheezing. HEART: S1-S2 is heard. S1 is of variable intensity. There is no S3 gallop. There is no S4 gallop. There is systolic murmur left sternal border and the apex there is no rub. ABDOMEN: Soft. There is no hepatosplenomegaly. Bowel sounds are well heard. EXTREMITIES: Femorals are deep femorals are diminished. Leg pulses are well felt. There is no pedal edema. There is no DVT or cellulitis. There is no calf tenderness. [employer] ADVISOR: The patient is conscious awake alert oriented x3 with no focal deficits. PSYCHIATRIC: The patient judgment insight are intact her affect is normal. Labs- Entire Visit 11/26/19 11/26/19 11/26/19 16:53 16:53 16:53 WBC 2.8 L RBC 3.45 L Hgb 10.6 L Hct 30.6 L MCV 89 MCH 30.6 MCHC 34.4 RDW 14.6 H Plt Count 33 L Lymph % (Auto) 18.3 Harris % (Auto) 2.6 L Eos % (Auto) 0.8 Baso % (Auto) 0.2 Absolute Neuts (auto) 2.2 Absolute Lymphs (auto) 0.5 Absolute Monos (auto) 0.1 Absolute Eos (auto) 0.0 Absolute Basos (auto) 0.0 Seg Neutrophils % 78.1 H VBG pH VBG pCO2 VBG HCO3 VBG Base Excess Sodium 139.9 Potassium 5.1 H Chloride 111 H Carbon Dioxide 15 L Anion Gap 14 BUN 69 H Creatinine 4.27 H Est GFR ( Amer) 12 L Est GFR (MDRD) Non-Af 10 L Glucose 76 POC Glucose Hemoglobin A1c % Lactic Acid Uric Acid Calcium 6.4 L* Ionized Calcium Gurinder Phosphorus Magnesium 2.6 H Total Bilirubin 0.7 Direct Bilirubin 0.4 Neonat Total Bilirubin Not Reportable Neonat Direct Bilirubin Not Reportable Neonat Indirect Bili Not Reportable AST 27 ALT 10 Alkaline Phosphatase 103 Lactate Dehydrogenase Creatine Kinase CK-MB (CK-2) Troponin I Total Protein 6.9 Albumin 3.2 L Vitamin D 25-Hydroxy TSH Free T3 pg/mL PTH Intact Urine Color DARK YELLOW Urine Appearance CLOUDY Urine pH 5.0 Ur Specific [place] 1.017 Urine Protein NEGATIVE Urine Glucose (UA) NEGATIVE Urine Ketones TRACE H Urine Blood NEGATIVE Urine Nitrite NEGATIVE Urine Bilirubin NEGATIVE Urine Urobilinogen NEGATIVE Ur Leukocyte Esterase MODERATE H Urine WBC (Auto) 30 Urine RBC (Auto) 6 U Hyaline Cast (Auto) 7 Urine Bacteria (Auto) 1+ Squamous Epi Cells Auto 2 Urine Mucus (Auto) RARE Urine Ascorbic Acid 40 H 11/26/19 11/26/19 11/26/19 16:53 18:51 22:55 WBC RBC Hgb Hct MCV MCH MCHC RDW Plt Count Lymph % (Auto) Harris % (Auto) Eos % (Auto) Baso % (Auto) Absolute Neuts (auto) Absolute Lymphs (auto) Absolute Monos (auto) Absolute Eos (auto) Absolute Basos (auto) Seg Neutrophils % VBG pH VBG pCO2 VBG HCO3 VBG Base Excess Sodium Potassium Chloride Carbon Dioxide Anion Gap BUN Creatinine Est GFR ( Amer) Est GFR (MDRD) Non-Af Glucose POC Glucose Hemoglobin A1c % Lactic Acid < 0.5 L Uric Acid Calcium Ionized Calcium Gurinder 0.90 L Phosphorus Magnesium Total Bilirubin Direct Bilirubin Neonat Total Bilirubin Neonat Direct Bilirubin Neonat Indirect Bili AST ALT Alkaline Phosphatase Lactate Dehydrogenase Creatine Kinase CK-MB (CK-2) Troponin I Total Protein Albumin Vitamin D 25-Hydroxy TSH 2.71 Free T3 pg/mL 1.96 L PTH Intact Urine Color Urine Appearance Urine pH Ur Specific [place] Urine Protein Urine Glucose (UA) Urine Ketones Urine Blood Urine Nitrite Urine Bilirubin Urine Urobilinogen Ur Leukocyte Esterase Urine WBC (Auto) Urine RBC (Auto) U Hyaline Cast (Auto) Urine Bacteria (Auto) Squamous Epi Cells Auto Urine Mucus (Auto) Urine Ascorbic Acid 11/26/19 11/26/19 11/27/19 23:48 23:48 03:20 WBC RBC Hgb Hct MCV MCH MCHC RDW Plt Count Lymph % (Auto) Harris % (Auto) Eos % (Auto) Baso % (Auto) Absolute Neuts (auto) Absolute Lymphs (auto) Absolute Monos (auto) Absolute Eos (auto) Absolute Basos (auto) Seg Neutrophils % VBG pH VBG pCO2 VBG HCO3 VBG Base Excess Sodium Potassium Chloride Carbon Dioxide Anion Gap BUN Creatinine Est GFR ( Amer) Est GFR (MDRD) Non-Af Glucose POC Glucose Hemoglobin A1c % Lactic Acid < 0.5 L Uric Acid Calcium Ionized Calcium Gurinder Phosphorus Magnesium Total Bilirubin Direct Bilirubin Neonat Total Bilirubin Neonat Direct Bilirubin Neonat Indirect Bili AST ALT Alkaline Phosphatase Lactate Dehydrogenase Creatine Kinase 216 H CK-MB (CK-2) 1.71 Troponin I 0.023 Total Protein Albumin Vitamin D 25-Hydroxy TSH Free T3 pg/mL PTH Intact Urine Color Urine Appearance Urine pH Ur Specific [place] Urine Protein Urine Glucose (UA) Urine Ketones Urine Blood Urine Nitrite Urine Bilirubin Urine Urobilinogen Ur Leukocyte Esterase Urine WBC (Auto) Urine RBC (Auto) U Hyaline Cast (Auto) Urine Bacteria (Auto) Squamous Epi Cells Auto Urine Mucus (Auto) Urine Ascorbic Acid 11/27/19 11/27/19 11/27/19 05:30 05:30 05:30 WBC 3.1 L RBC 3.21 L Hgb 9.7 L Hct 28.9 L MCV 90 MCH 30.3 MCHC 33.6 RDW 14.8 H Plt Count 31 L Lymph % (Auto) Harris % (Auto) Eos % (Auto) Baso % (Auto) Absolute Neuts (auto) Absolute Lymphs (auto) Absolute Monos (auto) Absolute Eos (auto) Absolute Basos (auto) Seg Neutrophils % VBG pH VBG pCO2 VBG HCO3 VBG Base Excess Sodium 140.8 Potassium 5.2 H Chloride 114 H Carbon Dioxide 14 L Anion Gap 13 BUN 67 H Creatinine 3.65 H Est GFR ( Amer) 15 L Est GFR (MDRD) Non-Af 12 L Glucose 43 L POC Glucose Hemoglobin A1c % 5.7 Lactic Acid Uric Acid Calcium 5.9 L* Ionized Calcium Gurinder Phosphorus Magnesium 2.6 H Total Bilirubin Direct Bilirubin Neonat Total Bilirubin Neonat Direct Bilirubin Neonat Indirect Bili AST ALT Alkaline Phosphatase Lactate Dehydrogenase Creatine Kinase 481 H CK-MB (CK-2) Troponin I Total Protein Albumin Vitamin D 25-Hydroxy TSH Free T3 pg/mL PTH Intact Urine Color Urine Appearance Urine pH Ur Specific [place] Urine Protein Urine Glucose (UA) Urine Ketones Urine Blood Urine Nitrite Urine Bilirubin Urine Urobilinogen Ur Leukocyte Esterase Urine WBC (Auto) Urine RBC (Auto) U Hyaline Cast (Auto) Urine Bacteria (Auto) Squamous Epi Cells Auto Urine Mucus (Auto) Urine Ascorbic Acid 11/27/19 11/27/19 11/27/19 05:30 05:30 07:13 WBC RBC Hgb Hct MCV MCH MCHC RDW Plt Count Lymph % (Auto) Harris % (Auto) Eos % (Auto) Baso % (Auto) Absolute Neuts (auto) Absolute Lymphs (auto) Absolute Monos (auto) Absolute Eos (auto) Absolute Basos (auto) Seg Neutrophils % VBG pH 7.22 L VBG pCO2 35.1 VBG HCO3 14.1 L VBG Base Excess -12.6 Sodium Potassium Chloride Carbon Dioxide Anion Gap BUN Creatinine Est GFR ( Amer) Est GFR (MDRD) Non-Af Glucose POC Glucose 158 H Hemoglobin A1c % Lactic Acid Uric Acid Calcium Ionized Calcium Gurinder Phosphorus Magnesium Total Bilirubin Direct Bilirubin Neonat Total Bilirubin Neonat Direct Bilirubin Neonat Indirect Bili AST ALT Alkaline Phosphatase Lactate Dehydrogenase Creatine Kinase CK-MB (CK-2) 4.04 Troponin I 0.029 Total Protein Albumin Vitamin D 25-Hydroxy TSH Free T3 pg/mL PTH Intact Urine Color Urine Appearance Urine pH Ur Specific [place] Urine Protein Urine Glucose (UA) Urine Ketones Urine Blood Urine Nitrite Urine Bilirubin Urine Urobilinogen Ur Leukocyte Esterase Urine WBC (Auto) Urine RBC (Auto) U Hyaline Cast (Auto) Urine Bacteria (Auto) Squamous Epi Cells Auto Urine Mucus (Auto) Urine Ascorbic Acid 11/27/19 11/27/19 11/27/19 07:39 07:48 11:25 WBC RBC Hgb Hct MCV MCH MCHC RDW Plt Count Lymph % (Auto) Harris % (Auto) Eos % (Auto) Baso % (Auto) Absolute Neuts (auto) Absolute Lymphs (auto) Absolute Monos (auto) Absolute Eos (auto) Absolute Basos (auto) Seg Neutrophils % VBG pH VBG pCO2 VBG HCO3 VBG Base Excess Sodium Potassium Chloride Carbon Dioxide Anion Gap BUN Creatinine Est GFR ( Amer) Est GFR (MDRD) Non-Af Glucose POC Glucose 151 H 161 H 109 Hemoglobin A1c % Lactic Acid Uric Acid Calcium Ionized Calcium Gurinder Phosphorus Magnesium Total Bilirubin Direct Bilirubin Neonat Total Bilirubin Neonat Direct Bilirubin Neonat Indirect Bili AST ALT Alkaline Phosphatase Lactate Dehydrogenase Creatine Kinase CK-MB (CK-2) Troponin I Total Protein Albumin Vitamin D 25-Hydroxy TSH Free T3 pg/mL PTH Intact Urine Color Urine Appearance Urine pH Ur Specific [place] Urine Protein Urine Glucose (UA) Urine Ketones Urine Blood Urine Nitrite Urine Bilirubin Urine Urobilinogen Ur Leukocyte Esterase Urine WBC (Auto) Urine RBC (Auto) U Hyaline Cast (Auto) Urine Bacteria (Auto) Squamous Epi Cells Auto Urine Mucus (Auto) Urine Ascorbic Acid 11/27/19 11/27/19 11/27/19 12:45 12:45 12:45 WBC RBC Hgb Hct MCV MCH MCHC RDW Plt Count Lymph % (Auto) Harris % (Auto) Eos % (Auto) Baso % (Auto) Absolute Neuts (auto) Absolute Lymphs (auto) Absolute Monos (auto) Absolute Eos (auto) Absolute Basos (auto) Seg Neutrophils % VBG pH VBG pCO2 VBG HCO3 VBG Base Excess Sodium Potassium Chloride Carbon Dioxide Anion Gap BUN Creatinine Est GFR ( Amer) Est GFR (MDRD) Non-Af Glucose POC Glucose Hemoglobin A1c % Lactic Acid 0.7 Uric Acid Calcium Ionized Calcium Gurinder Phosphorus Magnesium Total Bilirubin Direct Bilirubin Neonat Total Bilirubin Neonat Direct Bilirubin Neonat Indirect Bili AST ALT Alkaline Phosphatase Lactate Dehydrogenase Creatine Kinase 802 H CK-MB (CK-2) 5.43 H Troponin I 0.024 Total Protein Albumin Vitamin D 25-Hydroxy TSH Free T3 pg/mL PTH Intact Urine Color Urine Appearance Urine pH Ur Specific [place] Urine Protein Urine Glucose (UA) Urine Ketones Urine Blood Urine Nitrite Urine Bilirubin Urine Urobilinogen Ur Leukocyte Esterase Urine WBC (Auto) Urine RBC (Auto) U Hyaline Cast (Auto) Urine Bacteria (Auto) Squamous Epi Cells Auto Urine Mucus (Auto) Urine Ascorbic Acid 11/27/19 11/27/19 11/27/19 15:28 18:15 21:34 WBC RBC Hgb Hct MCV MCH MCHC RDW Plt Count Lymph % (Auto) Harris % (Auto) Eos % (Auto) Baso % (Auto) Absolute Neuts (auto) Absolute Lymphs (auto) Absolute Monos (auto) Absolute Eos (auto) Absolute Basos (auto) Seg Neutrophils % VBG pH VBG pCO2 VBG HCO3 VBG Base Excess Sodium Potassium Chloride Carbon Dioxide Anion Gap BUN Creatinine Est GFR ( Amer) Est GFR (MDRD) Non-Af Glucose POC Glucose 127 H 138 H Hemoglobin A1c % Lactic Acid 0.7 Uric Acid Calcium Ionized Calcium Gurinder Phosphorus Magnesium Total Bilirubin Direct Bilirubin Neonat Total Bilirubin Neonat Direct Bilirubin Neonat Indirect Bili AST ALT Alkaline Phosphatase Lactate Dehydrogenase Creatine Kinase CK-MB (CK-2) Troponin I Total Protein Albumin Vitamin D 25-Hydroxy TSH Free T3 pg/mL PTH Intact Urine Color Urine Appearance Urine pH Ur Specific [place] Urine Protein Urine Glucose (UA) Urine Ketones Urine Blood Urine Nitrite Urine Bilirubin Urine Urobilinogen Ur Leukocyte Esterase Urine WBC (Auto) Urine RBC (Auto) U Hyaline Cast (Auto) Urine Bacteria (Auto) Squamous Epi Cells Auto Urine Mucus (Auto) Urine Ascorbic Acid 11/28/19 11/28/19 11/28/19 04:35 04:35 07:38 WBC 2.9 L RBC 3.11 L Hgb 9.5 L Hct 28.4 L MCV 91 MCH 30.5 MCHC 33.4 RDW 14.7 H Plt Count 37 L Lymph % (Auto) Harris % (Auto) Eos % (Auto) Baso % (Auto) Absolute Neuts (auto) Absolute Lymphs (auto) Absolute Monos (auto) Absolute Eos (auto) Absolute Basos (auto) Seg Neutrophils % VBG pH VBG pCO2 VBG HCO3 VBG Base Excess Sodium 137.6 Potassium 5.0 Chloride 111 H Carbon Dioxide 17 L Anion Gap 10 BUN 61 H Creatinine 3.30 H Est GFR ( Amer) 16 L Est GFR (MDRD) Non-Af 14 L Glucose 96 POC Glucose 103 Hemoglobin A1c % Lactic Acid Uric Acid Calcium 7.4 L Ionized Calcium Gurinder Phosphorus Magnesium 2.6 H Total Bilirubin Direct Bilirubin Neonat Total Bilirubin Neonat Direct Bilirubin Neonat Indirect Bili AST ALT Alkaline Phosphatase Lactate Dehydrogenase Creatine Kinase CK-MB (CK-2) Troponin I Total Protein Albumin Vitamin D 25-Hydroxy TSH Free T3 pg/mL PTH Intact Urine Color Urine Appearance Urine pH Ur Specific [place] Urine Protein Urine Glucose (UA) Urine Ketones Urine Blood Urine Nitrite Urine Bilirubin Urine Urobilinogen Ur Leukocyte Esterase Urine WBC (Auto) Urine RBC (Auto) U Hyaline Cast (Auto) Urine Bacteria (Auto) Squamous Epi Cells Auto Urine Mucus (Auto) Urine Ascorbic Acid 11/28/19 11/28/19 11/28/19 11:00 16:40 21:31 WBC RBC Hgb Hct MCV MCH MCHC RDW Plt Count Lymph % (Auto) Harris % (Auto) Eos % (Auto) Baso % (Auto) Absolute Neuts (auto) Absolute Lymphs (auto) Absolute Monos (auto) Absolute Eos (auto) Absolute Basos (auto) Seg Neutrophils % VBG pH VBG pCO2 VBG HCO3 VBG Base Excess Sodium Potassium Chloride Carbon Dioxide Anion Gap BUN Creatinine Est GFR ( Amer) Est GFR (MDRD) Non-Af Glucose POC Glucose 144 H 151 H 124 H Hemoglobin A1c % Lactic Acid Uric Acid Calcium Ionized Calcium Gurinder Phosphorus Magnesium Total Bilirubin Direct Bilirubin Neonat Total Bilirubin Neonat Direct Bilirubin Neonat Indirect Bili AST ALT Alkaline Phosphatase Lactate Dehydrogenase Creatine Kinase CK-MB (CK-2) Troponin I Total Protein Albumin Vitamin D 25-Hydroxy TSH Free T3 pg/mL PTH Intact Urine Color Urine Appearance Urine pH Ur Specific [place] Urine Protein Urine Glucose (UA) Urine Ketones Urine Blood Urine Nitrite Urine Bilirubin Urine Urobilinogen Ur Leukocyte Esterase Urine WBC (Auto) Urine RBC (Auto) U Hyaline Cast (Auto) Urine Bacteria (Auto) Squamous Epi Cells Auto Urine Mucus (Auto) Urine Ascorbic Acid 11/29/19 11/29/19 11/29/19 05:50 05:50 05:50 WBC 2.6 L RBC 3.12 L Hgb 9.5 L Hct 27.9 L MCV 89 MCH 30.5 MCHC 34.1 RDW 14.2 H Plt Count 52 L Lymph % (Auto) Harris % (Auto) Eos % (Auto) Baso % (Auto) Absolute Neuts (auto) Absolute Lymphs (auto) Absolute Monos (auto) Absolute Eos (auto) Absolute Basos (auto) Seg Neutrophils % VBG pH VBG pCO2 VBG HCO3 VBG Base Excess Sodium 139.0 Potassium 4.9 Chloride 113 H Carbon Dioxide 18 L Anion Gap 8 BUN 52 H Creatinine 2.82 H Est GFR ( Amer) 20 L Est GFR (MDRD) Non-Af 16 L Glucose 71 L POC Glucose Hemoglobin A1c % Lactic Acid Uric Acid 10.7 H Calcium 6.8 L* Ionized Calcium Gurinder Phosphorus 2.7 Magnesium 2.4 H Total Bilirubin Direct Bilirubin Neonat Total Bilirubin Neonat Direct Bilirubin Neonat Indirect Bili AST ALT Alkaline Phosphatase Lactate Dehydrogenase Creatine Kinase CK-MB (CK-2) Troponin I Total Protein Albumin Vitamin D 25-Hydroxy TSH Free T3 pg/mL PTH Intact Urine Color Urine Appearance Urine pH Ur Specific [place] Urine Protein Urine Glucose (UA) Urine Ketones Urine Blood Urine Nitrite Urine Bilirubin Urine Urobilinogen Ur Leukocyte Esterase Urine WBC (Auto) Urine RBC (Auto) U Hyaline Cast (Auto) Urine Bacteria (Auto) Squamous Epi Cells Auto Urine Mucus (Auto) Urine Ascorbic Acid 11/29/19 11/29/19 11/29/19 07:25 11:34 16:17 WBC RBC Hgb Hct MCV MCH MCHC RDW Plt Count Lymph % (Auto) Harris % (Auto) Eos % (Auto) Baso % (Auto) Absolute Neuts (auto) Absolute Lymphs (auto) Absolute Monos (auto) Absolute Eos (auto) Absolute Basos (auto) Seg Neutrophils % VBG pH VBG pCO2 VBG HCO3 VBG Base Excess Sodium Potassium Chloride Carbon Dioxide Anion Gap BUN Creatinine Est GFR ( Amer) Est GFR (MDRD) Non-Af Glucose POC Glucose 90 97 118 H Hemoglobin A1c % Lactic Acid Uric Acid Calcium Ionized Calcium Gurinder Phosphorus Magnesium Total Bilirubin Direct Bilirubin Neonat Total Bilirubin Neonat Direct Bilirubin Neonat Indirect Bili AST ALT Alkaline Phosphatase Lactate Dehydrogenase Creatine Kinase CK-MB (CK-2) Troponin I Total Protein Albumin Vitamin D 25-Hydroxy TSH Free T3 pg/mL PTH Intact Urine Color Urine Appearance Urine pH Ur Specific [place] Urine Protein Urine Glucose (UA) Urine Ketones Urine Blood Urine Nitrite Urine Bilirubin Urine Urobilinogen Ur Leukocyte Esterase Urine WBC (Auto) Urine RBC (Auto) U Hyaline Cast (Auto) Urine Bacteria (Auto) Squamous Epi Cells Auto Urine Mucus (Auto) Urine Ascorbic Acid 11/29/19 11/30/19 11/30/19 21:45 05:27 05:27 WBC 2.7 L RBC 3.13 L Hgb 9.5 L Hct 28.0 L MCV 90 MCH 30.3 MCHC 33.9 RDW 14.0 Plt Count 76 L Lymph % (Auto) Harris % (Auto) Eos % (Auto) Baso % (Auto) Absolute Neuts (auto) Absolute Lymphs (auto) Absolute Monos (auto) Absolute Eos (auto) Absolute Basos (auto) Seg Neutrophils % VBG pH VBG pCO2 VBG HCO3 VBG Base Excess Sodium 138.2 Potassium 5.2 H Chloride 111 H Carbon Dioxide 20 L Anion Gap 7 BUN 48 H Creatinine 2.37 H Est GFR ( Amer) 24 L Est GFR (MDRD) Non-Af 20 L Glucose 103 POC Glucose 105 Hemoglobin A1c % Lactic Acid Uric Acid 10.7 H Calcium 7.1 L Ionized Calcium Gurinder Phosphorus 2.8 Magnesium 2.4 H Total Bilirubin 0.6 Direct Bilirubin 0.2 Neonat Total Bilirubin Not Reportable Neonat Direct Bilirubin Not Reportable Neonat Indirect Bili Not Reportable AST 32 ALT 13 Alkaline Phosphatase 72 Lactate Dehydrogenase 298 H Creatine Kinase 249 H CK-MB (CK-2) Troponin I Total Protein 5.3 L Albumin 2.5 L Vitamin D 25-Hydroxy TSH Free T3 pg/mL PTH Intact Urine Color Urine Appearance Urine pH Ur Specific [place] Urine Protein Urine Glucose (UA) Urine Ketones Urine Blood Urine Nitrite Urine Bilirubin Urine Urobilinogen Ur Leukocyte Esterase Urine WBC (Auto) Urine RBC (Auto) U Hyaline Cast (Auto) Urine Bacteria (Auto) Squamous Epi Cells Auto Urine Mucus (Auto) Urine Ascorbic Acid 11/30/19 11/30/19 11/30/19 05:27 05:27 07:27 WBC RBC Hgb Hct MCV MCH MCHC RDW Plt Count Lymph % (Auto) Harris % (Auto) Eos % (Auto) Baso % (Auto) Absolute Neuts (auto) Absolute Lymphs (auto) Absolute Monos (auto) Absolute Eos (auto) Absolute Basos (auto) Seg Neutrophils % VBG pH VBG pCO2 VBG HCO3 VBG Base Excess Sodium Potassium Chloride Carbon Dioxide Anion Gap BUN Creatinine Est GFR ( Amer) Est GFR (MDRD) Non-Af Glucose POC Glucose 93 Hemoglobin A1c % Lactic Acid Uric Acid Calcium Ionized Calcium Gurinder Phosphorus Magnesium Total Bilirubin Direct Bilirubin Neonat Total Bilirubin Neonat Direct Bilirubin Neonat Indirect Bili AST ALT Alkaline Phosphatase Lactate Dehydrogenase Creatine Kinase CK-MB (CK-2) Troponin I Total Protein Albumin Vitamin D 25-Hydroxy 26.3 TSH Free T3 pg/mL PTH Intact 1002.0 H Urine Color Urine Appearance Urine pH Ur Specific [place] Urine Protein Urine Glucose (UA) Urine Ketones Urine Blood Urine Nitrite Urine Bilirubin Urine Urobilinogen Ur Leukocyte Esterase Urine WBC (Auto) Urine RBC (Auto) U Hyaline Cast (Auto) Urine Bacteria (Auto) Squamous Epi Cells Auto Urine Mucus (Auto) Urine Ascorbic Acid 11/30/19 11/30/19 11/30/19 11:09 16:29 21:50 WBC RBC Hgb Hct MCV MCH MCHC RDW Plt Count Lymph % (Auto) Harris % (Auto) Eos % (Auto) Baso % (Auto) Absolute Neuts (auto) Absolute Lymphs (auto) Absolute Monos (auto) Absolute Eos (auto) Absolute Basos (auto) Seg Neutrophils % VBG pH VBG pCO2 VBG HCO3 VBG Base Excess Sodium Potassium Chloride Carbon Dioxide Anion Gap BUN Creatinine Est GFR ( Amer) Est GFR (MDRD) Non-Af Glucose POC Glucose 136 H 131 H 130 H Hemoglobin A1c % Lactic Acid Uric Acid Calcium Ionized Calcium Gurinder Phosphorus Magnesium Total Bilirubin Direct Bilirubin Neonat Total Bilirubin Neonat Direct Bilirubin Neonat Indirect Bili AST ALT Alkaline Phosphatase Lactate Dehydrogenase Creatine Kinase CK-MB (CK-2) Troponin I Total Protein Albumin Vitamin D 25-Hydroxy TSH Free T3 pg/mL PTH Intact Urine Color Urine Appearance Urine pH Ur Specific [place] Urine Protein Urine Glucose (UA) Urine Ketones Urine Blood Urine Nitrite Urine Bilirubin Urine Urobilinogen Ur Leukocyte Esterase Urine WBC (Auto) Urine RBC (Auto) U Hyaline Cast (Auto) Urine Bacteria (Auto) Squamous Epi Cells Auto Urine Mucus (Auto) Urine Ascorbic Acid 12/01/19 12/01/19 12/01/19 05:56 05:56 05:56 WBC 2.5 L RBC 3.35 L Hgb 10.2 L Hct 29.8 L MCV 89 MCH 30.4 MCHC 34.1 RDW 14.2 H Plt Count 121 L Lymph % (Auto) Harris % (Auto) Eos % (Auto) Baso % (Auto) Absolute Neuts (auto) Absolute Lymphs (auto) Absolute Monos (auto) Absolute Eos (auto) Absolute Basos (auto) Seg Neutrophils % VBG pH VBG pCO2 VBG HCO3 VBG Base Excess Sodium 139.9 Potassium 5.0 Chloride 113 H Carbon Dioxide 20 L Anion Gap 7 BUN 40 H Creatinine 1.84 H Est GFR ( Amer) 32 L Est GFR (MDRD) Non-Af 27 L Glucose 85 POC Glucose Hemoglobin A1c % Lactic Acid Uric Acid Calcium 6.9 L* Ionized Calcium Gurinder Phosphorus Magnesium Total Bilirubin Direct Bilirubin Neonat Total Bilirubin Neonat Direct Bilirubin Neonat Indirect Bili AST ALT Alkaline Phosphatase Lactate Dehydrogenase Creatine Kinase CK-MB (CK-2) Troponin I Total Protein Albumin 2.8 L Vitamin D 25-Hydroxy TSH Free T3 pg/mL PTH Intact Urine Color Urine Appearance Urine pH Ur Specific [place] Urine Protein Urine Glucose (UA) Urine Ketones Urine Blood Urine Nitrite Urine Bilirubin Urine Urobilinogen Ur Leukocyte Esterase Urine WBC (Auto) Urine RBC (Auto) U Hyaline Cast (Auto) Urine Bacteria (Auto) Squamous Epi Cells Auto Urine Mucus (Auto) Urine Ascorbic Acid 12/01/19 12/01/19 12/01/19 07:31 11:15 16:50 WBC RBC Hgb Hct MCV MCH MCHC RDW Plt Count Lymph % (Auto) Harris % (Auto) Eos % (Auto) Baso % (Auto) Absolute Neuts (auto) Absolute Lymphs (auto) Absolute Monos (auto) Absolute Eos (auto) Absolute Basos (auto) Seg Neutrophils % VBG pH VBG pCO2 VBG HCO3 VBG Base Excess Sodium Potassium Chloride Carbon Dioxide Anion Gap BUN Creatinine Est GFR ( Amer) Est GFR (MDRD) Non-Af Glucose POC Glucose 83 82 122 H Hemoglobin A1c % Lactic Acid Uric Acid Calcium Ionized Calcium Gurinder Phosphorus Magnesium Total Bilirubin Direct Bilirubin Neonat Total Bilirubin Neonat Direct Bilirubin Neonat Indirect Bili AST ALT Alkaline Phosphatase Lactate Dehydrogenase Creatine Kinase CK-MB (CK-2) Troponin I Total Protein Albumin Vitamin D 25-Hydroxy TSH Free T3 pg/mL PTH Intact Urine Color Urine Appearance Urine pH Ur Specific [place] Urine Protein Urine Glucose (UA) Urine Ketones Urine Blood Urine Nitrite Urine Bilirubin Urine Urobilinogen Ur Leukocyte Esterase Urine WBC (Auto) Urine RBC (Auto) U Hyaline Cast (Auto) Urine Bacteria (Auto) Squamous Epi Cells Auto Urine Mucus (Auto) Urine Ascorbic Acid 12/01/19 12/02/19 12/02/19 21:28 05:50 05:50 WBC 2.2 L RBC 3.13 L Hgb 9.5 L Hct 27.8 L MCV 89 MCH 30.5 MCHC 34.3 RDW 13.9 Plt Count 150 Lymph % (Auto) Harris % (Auto) Eos % (Auto) Baso % (Auto) Absolute Neuts (auto) Absolute Lymphs (auto) Absolute Monos (auto) Absolute Eos (auto) Absolute Basos (auto) Seg Neutrophils % VBG pH VBG pCO2 VBG HCO3 VBG Base Excess Sodium 140.4 Potassium 5.0 Chloride 113 H Carbon Dioxide 22 Anion Gap 5 BUN 34 H Creatinine 1.60 H Est GFR ( Amer) 38 L Est GFR (MDRD) Non-Af 31 L Glucose 81 POC Glucose 114 H Hemoglobin A1c % Lactic Acid Uric Acid Calcium 6.5 L* Ionized Calcium Gurinder Phosphorus Magnesium Total Bilirubin Direct Bilirubin Neonat Total Bilirubin Neonat Direct Bilirubin Neonat Indirect Bili AST ALT Alkaline Phosphatase Lactate Dehydrogenase Creatine Kinase CK-MB (CK-2) Troponin I Total Protein Albumin Vitamin D 25-Hydroxy TSH Free T3 pg/mL PTH Intact Urine Color Urine Appearance Urine pH Ur Specific [place] Urine Protein Urine Glucose (UA) Urine Ketones Urine Blood Urine Nitrite Urine Bilirubin Urine Urobilinogen Ur Leukocyte Esterase Urine WBC (Auto) Urine RBC (Auto) U Hyaline Cast (Auto) Urine Bacteria (Auto) Squamous Epi Cells Auto Urine Mucus (Auto) Urine Ascorbic Acid 12/02/19 12/02/19 12/02/19 05:50 07:25 11:16 WBC RBC Hgb Hct MCV MCH MCHC RDW Plt Count Lymph % (Auto) Harris % (Auto) Eos % (Auto) Baso % (Auto) Absolute Neuts (auto) Absolute Lymphs (auto) Absolute Monos (auto) Absolute Eos (auto) Absolute Basos (auto) Seg Neutrophils % VBG pH VBG pCO2 VBG HCO3 VBG Base Excess Sodium Potassium Chloride Carbon Dioxide Anion Gap BUN Creatinine Est GFR ( Amer) Est GFR (MDRD) Non-Af Glucose POC Glucose 81 97 Hemoglobin A1c % Lactic Acid Uric Acid Calcium Ionized Calcium Gurinder Phosphorus Magnesium Total Bilirubin Direct Bilirubin Neonat Total Bilirubin Neonat Direct Bilirubin Neonat Indirect Bili AST ALT Alkaline Phosphatase Lactate Dehydrogenase Creatine Kinase CK-MB (CK-2) Troponin I Total Protein Albumin 2.6 L Vitamin D 25-Hydroxy TSH Free T3 pg/mL PTH Intact Urine Color Urine Appearance Urine pH Ur Specific [place] Urine Protein Urine Glucose (UA) Urine Ketones Urine Blood Urine Nitrite Urine Bilirubin Urine Urobilinogen Ur Leukocyte Esterase Urine WBC (Auto) Urine RBC (Auto) U Hyaline Cast (Auto) Urine Bacteria (Auto) Squamous Epi Cells Auto Urine Mucus (Auto) Urine Ascorbic Acid 12/02/19 12/02/19 16:27 21:32 WBC RBC Hgb Hct MCV MCH MCHC RDW Plt Count Lymph % (Auto) Harris % (Auto) Eos % (Auto) Baso % (Auto) Absolute Neuts (auto) Absolute Lymphs (auto) Absolute Monos (auto) Absolute Eos (auto) Absolute Basos (auto) Seg Neutrophils % VBG pH VBG pCO2 VBG HCO3 VBG Base Excess Sodium Potassium Chloride Carbon Dioxide Anion Gap BUN Creatinine Est GFR ( Amer) Est GFR (MDRD) Non-Af Glucose POC Glucose 103 101 Hemoglobin A1c % Lactic Acid Uric Acid Calcium Ionized Calcium Gurinder Phosphorus Magnesium Total Bilirubin Direct Bilirubin Neonat Total Bilirubin Neonat Direct Bilirubin Neonat Indirect Bili AST ALT Alkaline Phosphatase Lactate Dehydrogenase Creatine Kinase CK-MB (CK-2) Troponin I Total Protein Albumin Vitamin D 25-Hydroxy TSH Free T3 pg/mL PTH Intact Urine Color Urine Appearance Urine pH Ur Specific [place] Urine Protein Urine Glucose (UA) Urine Ketones Urine Blood Urine Nitrite Urine Bilirubin Urine Urobilinogen Ur Leukocyte Esterase Urine WBC (Auto) Urine RBC (Auto) U Hyaline Cast (Auto) Urine Bacteria (Auto) Squamous Epi Cells Auto Urine Mucus (Auto) Urine Ascorbic Acid Renal Ultrasound 12/01/19 00:00 IMPRESSION: No evidence of obstructive uropathy. IMPRESSION/RECOMMENDATION: 1. Recent onset of atrial flutter. At present ventricular onse is controlled. Would continue the patient's beta-patrice. Discussed with Dr. Turk, assistant foreman/oncologist. The patient's Gulshan vas risk score is very high for me CVA. In spite of her being slightly high risk than usual after discussions with Dr. Saunders we will feel that the patient would benefit from chronic anticoagulation in view of the fact that the patient is risk for CVA outweigh the risks of bleeding. Hence we will start the patient on Eliquis. Later as an outpatient will refer to EP cardiology to see if the patient can undergo ablation of the atrial flutter focus versus watchman procedure. THE PATIENT'S GULSHAN 2 VASCULAR SCORE is 7. [2 for age, 1 for female gender, 1 for hypertension, 1 for diabetes mellitus, and 2 history of TIA]. One option is once the patient is stabilized would recommend EP consultation for either atrial flutter ablation or watchman procedure. But even for this she has to stay on anticoagulation for a little while. 2. Anemia: Patient recently transfused with packed RBC units as an outpatient. 3. Hypocalcemia: Replace the patient's calcium. 4. Hypertension: Blood pressure well controlled. 5. Diabetes mellitus type 2 with diabetic nephropathy. Continue antidiabetic medication. 6. Chronic kidney disease stage III: Avoid nephrotoxic drugs. 7. Dehydration. Continue IV fluids 8. Possible sepsis with positive blood cultures for Staphylococcus aureus which is not methicillin-resistant. Continue IV antibiotics. 9. History of uterine cancer: Hematology on consult. Medications reviewed. Medical regimen and management plan discussed with the attending provider on the case. Medical decision making is of moderate complexity. 40-minute spent as patient more than 50% time spent in direct patient care. Cardiac status is stable. We will sign off
[2019-12-02] MEDS: ATORVASTATIN CALCIUM 20 MG TABLET PO SCH (21:27)
[2019-12-03] MEDS: PANTOPRAZOLE SODIUM 40 MG TABLET.DR PO SCH (06:06)
[2019-12-03 07:28] LABS: ALBUMIN 2.5 g/dL (3.5-5.0); ANION GAP 6 (5-19); BLOOD UREA NITROGEN 29 mg/dL (7-20); CALCIUM 7.2 mg/dL (8.4-10.2); CARBON DIOXIDE 22 mmol/L (22-30); CHLORIDE 113 mmol/L (98-107); GLUCOSE 73 mg/dL (75-110); PHOSPHORUS 2.9 mg/dL (2.5-4.5); POTASSIUM 4.9 mmol/L (3.6-5.0)
[2019-12-03] MEDS: INSULIN REG, HUMAN 100 UNIT/ML 3 ML VIAL (PYX) SUBCUT SCH ×2 (08:35→13:34)
[2019-12-03] MEDS: APIXABAN 2.5 MG TABLET PO SCH (09:28)
[2019-12-03] MEDS: CHOLECALCIFEROL (D3) 1,000 UNIT (25 MCG) TABLET PO SCH (09:28)
[2019-12-03] MEDS: VITAMIN B COMPLEX TABLET PO SCH (09:28)
[2019-12-03] MEDS: DOCUSATE SODIUM 100 MG CAPSULE PO SCH (09:28)
[2019-12-03] MEDS: CALCITRIOL 0.25 MCG CAPSULE PO SCH (09:28)
[2019-12-03] MEDS: CALCIUM CARBONATE 600 MG TABLET PO SCH (09:28)
[2019-12-03] MEDS: FUROSEMIDE 20 MG TABLET PO SCH (09:29)
[2019-12-03] MEDS: CETIRIZINE 10 MG TABLET PO SCH (09:29)
[2019-12-03] MEDS: SODIUM BICARBONATE 650 MG TABLET PO SCH (09:29)
[2019-12-03] MEDS: METOPROLOL SUCCINATE 50 MG TAB.SR.24H PO SCH (09:29)
[2019-12-03 12:44] VITALS: BP 126/62
--- NOTE | 2019-12-04 13:21 | PDOC DISCHARGE SUMMARY ---
Impression - Admit/DC Date/PCP Admission Date/Primary Care Provider: 11/26/19 23:22 SHAILESH JOHNSON PA-C Discharge Date: 12/03/19 - Discharge Diagnosis (1) Hypocalcemia Is this a current diagnosis for this admission?: Yes (2) Atrial flutter Is this a current diagnosis for this admission?: Yes (3) CKD (chronic kidney disease) stage 4, GFR 15-29 ml/min Is this a current diagnosis for this admission?: Yes (4) Endometrial cancer Is this a current diagnosis for this admission?: Yes (5) Hyperkalemia Is this a current diagnosis for this admission?: Yes (6) Hypermagnesemia Is this a current diagnosis for this admission?: Yes (7) Positive blood cultures Is this a current diagnosis for this admission?: Yes (8) Pancytopenia Is this a current diagnosis for this admission?: Yes - Additional Information Resuscitation Status: Full Code Discharge Diet: Cardiac Discharge Activity: Activity As Tolerated, Balance Activity w/Rest, Slowly Increase Activity, Supervised Activity Referrals: [facility] [Outside] [facility] [Outside] DEE DEE HUTTON MD [ACTIVE STAFF] - 12/10/19 10:30 am SHAILESH JOHNSON PA-C [Primary Care Provider] - 12/15/19 10:15 am INEZ ANDERSON MD [ACTIVE STAFF] - 12/10/19 12:40 pm (within 7-10 days) SAVANAH WALKER MD [ACTIVE STAFF] - (earliest available appointment - left message for appointment 12:45@12/03/19) Prescriptions: Apixaban [Eliquis 5 mg Tablet] 5 mg PO Q12 #60 tablet Calcitriol [Rocaltrol 0.25 mcg Capsule] 0.5 mcg PO DAILY #60 capsule Sodium Bicarbonate [Sodium Bicarbonate 650 mg Tablet] 650 mg PO Q12 #60 tablet Home Medications: Aspirin [Aspirin 81 mg Chewable Tablet] 81 mg PO DAILY 12/31/16 Atorvastatin Calcium 20 mg PO DAILY 12/31/16 Cetirizine HCl [Zyrtec] 10 mg PO DAILY 12/31/16 Metoprolol Succinate [Toprol Xl] 50 mg PO DAILY 12/31/16 Ondansetron HCl [Zofran 8 mg Tablet] 8 mg PO Q8HP PRN 12/31/16 B-Complex with Vitamin C [Super B Complex-Vitamin C] 1 tab PO DAILY 11/27/19 Calcium Carbonate [Calcium] 600 mg PO BID 11/27/19 Cholecalciferol (Vitamin D3) [Vitamin D3 1000 Unit Tablet] 2,000 unit PO DAILY 11/27/19 Doxazosin Mesylate [Cardura 2 mg Tablet] 2 mg PO QHS 11/27/19 Dulaglutide [Trulicity] 0.75 mg SQ FR@1000 11/27/19 Fluticasone Propionate [Flonase Nasal [place] 50 Mcg/[place] 16 gm] 1 spray NASL DAILY 11/27/19 Furosemide [Lasix 20 mg Tablet] 20 mg PO MOWEFR@1000 11/27/19 Krill/Om-3/Dha/Epa/Phospho/Ast [Maximum Red Krill [place]-3 Sfgl] 1 cap PO DAILY 11/27/19 Omeprazole 40 mg PO Q6AM 11/27/19 Oxycodone HCl/Acetaminophen [Percocet 5-325 mg Tablet] 1 tab PO Q4HP PRN 11/27/19 Prochlorperazine Maleate [Compazine 5 mg Tablet] 5 mg PO Q6HP PRN 11/27/19 Acetaminophen [Tylenol 325 mg Tablet] 650 mg PO Q4HP PRN tablet 12/03/19 Apixaban [Eliquis 5 mg Tablet] 5 mg PO Q12 #60 tablet 12/03/19 Calcitriol [Rocaltrol 0.25 mcg Capsule] 0.5 mcg PO DAILY #60 capsule 12/03/19 Sodium Bicarbonate [Sodium Bicarbonate 650 mg Tablet] 650 mg PO Q12 #60 tablet 12/03/19 History of Present Illiness History of Present Illness: Per H&P by Dr. Cadena: MORGAN ORTEGA is a 79 year old female who presents the emergency room from Dr. Hutton's office for evaluation of generalized weakness present for the last week. Patient admits progressively worsening generalized weakness accompanied by fatigue and associated with hypocalcemia and hypotension noted in Dr. Hutton's office. She was treated as an outpatient with packed red blood cells x2 units earlier this week without substantial improvement. She has been undergoing chemotherapy for endometrial cancer in [facility]. She was seen in the emergency room yesterday and was given IV calcium for hypocalcemia. She was noted to have positive blood cultures from her visit yesterday with gram-negative rods and gram positive cocci (staph species not MSRA). She denies other associated or accompanying signs and symptoms. She has not identified any additional aggravating or ameliorating factors for her weakness. She denies prior similar episodes. In the emergency room she was noted to have new onset atrial flutter, chronic renal failure, mild hyperkalemia, thrombocytopenia, anemia, leukopenia, persistent hypocalcemia, hypermagnesemia and pyuria. Her atrial flutter was well controlled initially but showed signs of increasing in rate and this was associated with a drop in her blood pressure to a systolic of 80. She was treated with an IV fluid bolus and calcium gluconate at my direction. She was started on meropenem 1 g IV in the ER also at my direction. Hospital Course Hospital Course: (1) Hypocalcemia Improved. Corrected Ca is 8.4 Continue oral replacement. Received IV replacement Continue Calcitriol (2) Atrial flutter Currently rate controlled at rest but with tachycardia with minimal activity. Cardiology is consulted. Per Dr. Moreno's notes, recommends anticoagulation at this time with outpatient follow-up for EP consultation (ablation versus watchman procedure). Continue Eliquis 5 mg twice daily. We will continue Toprol-XL 50 mg daily[address] Spoke with Dr. Moreno; cleared for discharge to home with outpatient follow up. (3) CKD (chronic kidney disease) stage 4, GFR 15-29 ml/min Acute worsening on CKD is resolved; at baseline per nephrology. Cr 4.27-> 2.37-> 1.84-> 1.60 Renal ultrasound was benign. Nephrology service was consulted; have now signed off. Recommend follow up with Dr. Anderson in 7-10 days. Continue to optimize cardiac output. Avoid nephrotoxic medications; renally dose where appropriate. Continue home dose calcium carbonate. Continue sodium bicarb. (4) Endometrial cancer Oncology service is consulted; management per their expertise. All chemotherapy treatments currently on hold. Per Dr. Hutton; clear for discharge home with outpatient follow up. (5) Hyperkalemia Resolved. Received IV fluids and furosemide. Nephrology was consulted; have reinforced low potassium diet. (6) Hypermagnesemia Resolved. (7) Positive blood cultures Determined to be contaminant Infectious Disease was consulted; I reviewed Dr. Basilio's notes. He advises numerous organisms, including coag negative staph, likely represent skin contamination. Repeat blood cultures from the following day have no growth so far. As the patient does not have clinical signs of sepsis, he recommends discontinuing antibiotics and repeating cultures while off antibiotics. Meropenem was discontinued. Repeat blood cultures (11/30) negative at 72 hrs. (8) Pancytopenia Overall stable. Due to chemotherapy Oncology service is consulted; chemotherapy currently on hold. Discussed w/ Dr. Hutton; no need for replacement Physical Exam Vital Signs: Temp Pulse Resp BP Pulse Ox 97.5 F 76 18 126/62 H 99 12/03/19 12:42 12/03/19 12:42 12/03/19 12:42 12/03/19 12:42 12/03/19 12:42 Intake & Output 12/03/19 12/04/19 12/05/19 06:59 06:59 06:59 Intake Total 1100 Balance 1100 Weight 95 kg General appearance: PRESENT: no acute distress, well-developed, well-nourished Head exam: PRESENT: atraumatic, normocephalic Eye exam: PRESENT: conjunctiva pink, EOMI, PERRLA. ABSENT: scleral icterus Mouth exam: PRESENT: moist, tongue midline Respiratory exam: PRESENT: clear to auscultation paloma, symmetrical, unlabored. ABSENT: rales, rhonchi, wheezes Cardiovascular exam: PRESENT: irregular rhythm, +S1, +S2. ABSENT: diastolic murmur, rubs, systolic murmur Pulses: PRESENT: normal dorsalis pedis pul Vascular exam: PRESENT: normal capillary refill GI/Abdominal exam: PRESENT: normal bowel sounds, soft. ABSENT: distended, guarding, mass, organolmegaly, rebound, tenderness Rectal exam: PRESENT: deferred Extremities exam: PRESENT: full ROM. ABSENT: calf tenderness, clubbing, pedal edema Musculoskeletal exam: PRESENT: ambulatory Neurological exam: PRESENT: alert, awake, oriented to person, oriented to place, oriented to time, oriented to situation, CN II-XII grossly intact. ABSENT: motor sensory deficit Psychiatric exam: PRESENT: appropriate affect, normal mood. ABSENT: homicidal ideation, suicidal ideation Skin exam: PRESENT: dry, intact, warm. ABSENT: cyanosis, rash Results Laboratory Results: WBC 2.2 10^3/uL (4.0-10.5) L 12/02/19 05:50 RBC 3.13 10^6/uL (3.72-5.28) L 12/02/19 05:50 Hgb 9.5 g/dL (12.0-15.5) L 12/02/19 05:50 Hct 27.8 % (36.0-47.0) L 12/02/19 05:50 MCV 89 fl (80-97) 12/02/19 05:50 MCH 30.5 pg (27.0-33.4) 12/02/19 05:50 MCHC 34.3 g/dL (32.0-36.0) 12/02/19 05:50 RDW 13.9 % (11.5-14.0) 12/02/19 05:50 Plt Count 150 10^3/uL (150-450) 12/02/19 05:50 Lymph % (Auto) 18.3 % (13-45) 11/26/19 16:53 [place] % (Auto) 2.6 % (3-13) L 11/26/19 16:53 Eos % (Auto) 0.8 % (0-6) 11/26/19 16:53 Baso % (Auto) 0.2 % (0-2) 11/26/19 16:53 Absolute Neuts (auto) 2.2 10^3/uL (1.7-8.2) 11/26/19 16:53 Absolute Lymphs (auto) 0.5 10^3/uL (0.5-4.7) 11/26/19 16:53 Absolute Monos (auto) 0.1 10^3/uL (0.1-1.4) 11/26/19 16:53 Absolute Eos (auto) 0.0 10^3/uL (0.0-0.6) 11/26/19 16:53 Absolute Basos (auto) 0.0 10^3/uL (0.0-0.2) 11/26/19 16:53 Seg Neutrophils % 78.1 % (42-78) H 11/26/19 16:53 VBG pH 7.22 (7.30-7.42) L 11/27/19 05:30 VBG pCO2 35.1 mmHg (35-63) 11/27/19 05:30 VBG HCO3 14.1 mmol/L (20-32) L 11/27/19 05:30 VBG Base Excess -12.6 mmol/L 11/27/19 05:30 Sodium 140.8 mmol/L (137-145) 12/03/19 06:08 Potassium 4.9 mmol/L (3.6-5.0) 12/03/19 06:08 Chloride 113 mmol/L (98-107) H 12/03/19 06:08 Carbon Dioxide 22 mmol/L (22-30) 12/03/19 06:08 Anion Gap 6 (5-19) 12/03/19 06:08 BUN 29 mg/dL (7-20) H 12/03/19 06:08 Creatinine 1.52 mg/dL (0.52-1.25) H 12/03/19 06:08 Est GFR ( Amer) 40 (>60) L 12/03/19 06:08 Est GFR (MDRD) Non-Af 33 (>60) L 12/03/19 06:08 Glucose 73 mg/dL (75-110) L 12/03/19 06:08 POC Glucose 123 mg/dL (70-110) H 12/03/19 08:19 Hemoglobin A1c % 5.7 % (4.7-6.0) 11/27/19 05:30 Lactic Acid 0.7 mmol/L (0.7-2.1) 11/27/19 18:15 Uric Acid 10.7 mg/dL (2.5-7.5) H 11/30/19 05:27 Calcium 7.2 mg/dL (8.4-10.2) L 12/03/19 06:08 Ionized Calcium Gurinder 0.90 mmol/L (1.14-1.30) L 11/26/19 18:51 Phosphorus 2.9 mg/dL (2.5-4.5) 12/03/19 06:08 Magnesium 2.2 mg/dL (1.6-2.3) 12/03/19 06:08 Total Bilirubin 0.6 mg/dL (0.2-1.3) 11/30/19 05:27 Direct Bilirubin 0.2 mg/dL (0.0-0.4) 11/30/19 05:27 Neonat Total Bilirubin Not Reportable 11/30/19 05:27 Neonat Direct Bilirubin Not Reportable 11/30/19 05:27 Neonat Indirect Bili Not Reportable 11/30/19 05:27 AST 32 U/L (14-36) 11/30/19 05:27 ALT 13 U/L (<35) 11/30/19 05:27 Alkaline Phosphatase 72 U/L (38-126) 11/30/19 05:27 Lactate Dehydrogenase 298 U/L (120-246) H 11/30/19 05:27 Creatine Kinase 249 U/L (30-135) H 11/30/19 05:27 CK-MB (CK-2) 5.43 ng/mL (<4.55) H 11/27/19 12:45 Troponin I 0.024 ng/mL 11/27/19 12:45 Total Protein 5.3 g/dL (6.3-8.2) L 11/30/19 05:27 Albumin 2.5 g/dL (3.5-5.0) L 12/03/19 06:08 Vitamin D 25-Hydroxy 26.3 ng/mL (14.7-68.3) 11/30/19 05:27 TSH 2.71 uIU/mL (0.47-4.68) 11/26/19 16:53 Free T3 pg/mL 1.96 pg/mL (2.77-5.27) L 11/26/19 16:53 PTH Intact 1002.0 pg/mL (10.0-65.0) H 11/30/19 05:27 Urine Color DARK YELLOW 11/26/19 16:53 Urine Appearance CLOUDY 11/26/19 16:53 Urine pH 5.0 (5.0-9.0) 11/26/19 16:53 Ur Specific [place] 1.017 11/26/19 16:53 Urine Protein NEGATIVE mg/dL (NEGATIVE) 11/26/19 16:53 Urine Glucose (UA) NEGATIVE mg/dL (NEGATIVE) 11/26/19 16:53 Urine Ketones TRACE mg/dL (NEGATIVE) H 11/26/19 16:53 Urine Blood NEGATIVE (NEGATIVE) 11/26/19 16:53 Urine Nitrite NEGATIVE (NEGATIVE) 11/26/19 16:53 Urine Bilirubin NEGATIVE (NEGATIVE) 11/26/19 16:53 Urine Urobilinogen NEGATIVE mg/dL (<2.0) 11/26/19 16:53 Ur Leukocyte Esterase MODERATE (NEGATIVE) H 11/26/19 16:53 Urine WBC (Auto) 30 /HPF 11/26/19 16:53 Urine RBC (Auto) 6 /HPF 11/26/19 16:53 U Hyaline Cast (Auto) 7 /LPF 11/26/19 16:53 Urine Bacteria (Auto) 1+ /HPF 11/26/19 16:53 Squamous Epi Cells Auto 2 /HPF 11/26/19 16:53 Urine Mucus (Auto) RARE /LPF 11/26/19 16:53 Urine Ascorbic Acid 40 (NEGATIVE) H 11/26/19 16:53 11/26/19 11/27/19 11/27/19 23:48 05:30 12:45 CK-MB (CK-2) 1.71 4.04 5.43 H Troponin I 0.023 0.029 0.024 Impressions: Renal Ultrasound 12/01/19 00:00 IMPRESSION: No evidence of obstructive uropathy. Plan Plan of Treatment: Patient is discharged home in stable condition, with home health services. She is advised follow-up with her primary care provider within 1 week. She is also instructed to follow-up with Dr. Hutton, Dr. Anderson, and Dr. Walker at the earliest available appointments. She is advised to take her medications as prescirbed. Return to the emergency department, as needed, for concerning symptoms. Time Spent: Greater than 30 Minutes Stroke Is this a Stroke Patient?: No Acute Heart Failure Is this a Heart Failure Patient?: No
== END 2019-12-03 15:05 | disposition home health service (06) | DRG 682 ==
LOC: ER 14:25 → EH 23:22 → 3W 11-27 00:46
PROVIDERS: ADMIT Emergency Medicine; ATTEND Registered Nurse
DX: N17.9 Acute kidney failure, unspecified (principal); D61.810 Antineoplastic chemotherapy induced pancytopenia; I48.92 Unspecified atrial flutter; E83.51 Hypocalcemia; N18.4 Chronic kidney disease, stage 4 (severe); I95.9 Hypotension, unspecified; C54.1 Malignant neoplasm of endometrium; I12.9 Hypertensive chronic kidney disease with stage 1 through stage 4 chronic kidney disease, or unspecified chronic kidney disease; E78.00 Pure hypercholesterolemia, unspecified; E11.22 Type 2 diabetes mellitus with diabetic chronic kidney disease; E11.21 Type 2 diabetes mellitus with diabetic nephropathy; E87.5 Hyperkalemia; E83.42 Hypomagnesemia; D69.6 Thrombocytopenia, unspecified; D72.819 Decreased white blood cell count, unspecified; D64.9 Anemia, unspecified; Z79.84 Long term (current) use of oral hypoglycemic drugs; Z79.82 Long term (current) use of aspirin; Z79.891 Long term (current) use of opiate analgesic; Z79.51 Long term (current) use of inhaled steroids; Z79.899 Other long term (current) drug therapy
CPT/HCPCS: 36415; 71045; 76770; 80048; 80053; 81001; 82040; 82306; 82330; 82550; 82553; 82652; 82803; 82962; 83036; 83605; 83615; 83735; 83970; 84100; 84443; 84481; 84484; 84550; 85025; 85027; 87040; 87086; 93005; 93010; 96361; 96365; 96375; 99291; J0610; J1160; J1642; J2185; J3490; J7030; J7050; J7060